=== PATIENT | female | born 1945 | race African-American/Black ===

== ENCOUNTER 2017-02-22 09:36 | Emergency (ER) | payer MEDICARE, OTHER ==
[~2017-02-22] VITALS: Ht 170.2 cm; Wt 90.7 kg
[2017-02-22 10:30] VITALS: BP 136/118
[2017-02-22 12:30] VITALS: BP 131/89
[2017-02-22 13:34] LABS: BASOPHILS % (AUTO) 0.7 % (0.0-2.0); EOSINOPHILS % (AUTO) 1.5 % (0.0-3.0); LYMPHOCYTES % (AUTO) 22.3 % (20.0-45.0); MEAN CORPUSCULAR VOLUME 93 FL (80-99); MEAN PLATELET VOLUME 5.4 FL (6.5-10.1); MONOCYTES % (AUTO) 6.5 % (1.0-10.0); NEUTROPHILS % (AUTO) 69.1 % (45.0-75.0); PLATELET COUNT 363 K/UL (150-450); RED BLOOD COUNT 4.31 M/UL (4.20-5.40); RED CELL DISTRIBUTION WIDTH 16.8 % (11.6-14.8); WHITE BLOOD COUNT 9.2 K/UL (4.8-10.8)
[2017-02-22 13:48] LABS: ALANINE AMINOTRANSFERASE 5 U/L (3-33); ANION GAP 13 (5-15); ASPARTATE AMINO TRANSFERASE 15 U/L (5-40); CALCIUM 9.2 mg/dL (8.6-10.2); CARBON DIOXIDE 32 mEQ/L (20-30); CHLORIDE 97 mEQ/L (98-107); HEMOLYSIS 4; POTASSIUM 3.5 mEQ/L (3.4-4.9); SODIUM 142 mEQ/L (135-145); TOTAL PROTEIN 7.2 g/dL (6.6-8.7)
[2017-02-22 13:49] LABS: PROTHROMBIN TIME 10.1 SEC (9.30-11.50)
--- NOTE | 2017-02-22 14:24 | Emergency Room Report ---
History of Present Illness General Chief Complaint: Pain Source: Patient, Medical Record Present Illness HPI This patient states that 3 days ago she developed pain in her left foot. She states that she has a history of diabetic neuropathy that this is been different. She states that the pain has gotten worse and she is unable to ambulate secondary to pain. She states that the foot also feels very cold. She denies injury. She denies fever chills. She denies nausea or vomiting. She has no other complaints. Allergies: Coded Allergies: CHLORDIAZEPOXIDE (Verified Allergy, Mild, 01/05/10) DIAZEPAM (Verified Allergy, Mild, 01/05/10) HYDROCHLOROTHIAZIDE (Verified Allergy, Mild, 01/05/10) PENICILLIN G (Verified Allergy, Mild, HIVES, 01/05/10) HYDROMORPHONE (Unverified Allergy, Unknown, 02/22/17) MORPHINE (Unverified Allergy, Unknown, 02/22/17) PENICILLINS (Unverified Allergy, Unknown, 02/22/17) Uncoded Allergies: HYDROCHLOROTHIAZIDE (Allergy, Unknown, 02/22/17) Patient History Past Medical History: see triage record, HTN, GA, CAD, CHF, AFib, renal disease Social History: Denies: alcohol use, drug use, smoking Reviewed Nursing Documentation: PMH: Agreed, PSxH: Agreed Nursing Documentation-PMH Past Medical History: No History, Except For Hx Cardiac Problems: Yes - afib, aflutter CHF chronic kidney disease Hx Hypertension: Yes Hx Pacemaker: Yes Review of Systems All Other Systems: negative except mentioned in HPI Physical Exam Vital Signs Date Time Temp Pulse Resp B/P Pulse Ox O2 Delivery O2 Flow Rate FiO2 02/22/17 09:26 97.5 88 18 150/100 97 Room Air Sp02 EP Interpretation: reviewed, normal General Appearance: no apparent distress, alert, GCS 15, non-toxic Head: normocephalic, atraumatic Eyes: bilateral eye PERRL, bilateral eye normal inspection ENT: hearing grossly normal, normal pharynx, no angioedema, normal voice Neck: full range of motion, supple/symm/no masses Respiratory: chest non-tender, lungs clear, normal breath sounds, speaking full sentences Cardiovascular #1: regular rate, rhythm, no edema Cardiovascular #2: 2+ femoral (R), 2+ femoral (L), 2+ dorsalis pedis (R), 0 dorsalis pedis (L) Gastrointestinal: normal bowel sounds, non tender, soft, non-distended, no guarding, no rebound Rectal: deferred Musculoskeletal: back normal, normal range of motion, other - 0/4 DP and PT pulse on the LLE. TTP Throughout L. calf and foot. Neurologic: alert, oriented x3, responsive, motor strength/tone normal, sensory intact, speech normal Psychiatric: judgement/insight normal, memory normal, mood/affect normal, no suicidal/homicidal ideation Skin: normal color, no rash, warm/dry, well hydrated Medical Decision Making Diagnostic Impression: Primary Impression: Femoral artery occlusion, left ER Course This patient has an occlusion of the distal femoral artery. This is all the way through the distal popliteal to the tibial arteries. There is no color Doppler flow detected in the distal superficial femoral, popliteal posterior, anterior and dorsalis pedis tibial arteries. I discussed the case with the on- call vascular surgeon who is unsure if he would be able to see this patient today. Therefore, this patient needed to be transferred to higher level of care. The patient is transferred for evaluation by a vascular surgeon. Labs Test 02/22/17 13:21 White Blood Count 9.2 K/UL (4.8-10.8) Red Blood Count 4.31 M/UL (4.20-5.40) Hemoglobin 12.5 G/DL (12.0-16.0) Hematocrit 40.2 % (37.0-47.0) Mean Corpuscular Volume 93 FL (80-99) Mean Corpuscular Hemoglobin 29.0 PG (27.0-31.0) Mean Corpuscular Hemoglobin Concent 31.0 G/DL (32.0-36.0) Red Cell Distribution Width 16.8 % (11.6-14.8) Platelet Count 363 K/UL (150-450) Mean Platelet Volume 5.4 FL (6.5-10.1) Neutrophils (%) (Auto) 69.1 % (45.0-75.0) Lymphocytes (%) (Auto) 22.3 % (20.0-45.0) Monocytes (%) (Auto) 6.5 % (1.0-10.0) Eosinophils (%) (Auto) 1.5 % (0.0-3.0) Basophils (%) (Auto) 0.7 % (0.0-2.0) Prothrombin Time 10.1 SEC (9.30-11.50) Prothromb Time International Ratio 1.0 (0.9-1.1) Activated Partial Thromboplast Time 27 SEC (23-33) Sodium Level 142 mEQ/L (135-145) Potassium Level 3.5 mEQ/L (3.4-4.9) Chloride Level 97 mEQ/L (98-107) Carbon Dioxide Level 32 mEQ/L (20-30) Anion Gap 13 (5-15) Blood Urea Nitrogen 13 mg/dL (7-23) Creatinine 1.0 mg/dL (0.5-0.9) Estimat Glomerular Filtration Rate mL/min (>60) Glucose Level 113 mg/dL (74-106) Calcium Level 9.2 mg/dL (8.6-10.2) Total Bilirubin 0.5 mg/dL (0.0-1.2) Aspartate Amino Transf (AST/SGOT) 15 U/L (5-40) Alanine Aminotransferase (ALT/SGPT) 5 U/L (3-33) Alkaline Phosphatase 92 U/L (35-104) Total Creatine Kinase 263 U/L (26-140) Total Protein 7.2 g/dL (6.6-8.7) Albumin 3.7 g/dL (3.5-5.2) Globulin 3.5 g/dL Albumin/Globulin Ratio 1.0 (1.0-2.7) EKG Diagnostic Results Rate: normal Rhythm: other ST Segments: no acute changes Other Impression Paced Rhythm Strip Diag. Results EP Interpretation: yes Rate: 86 Rhythm: no PVC's, no ectopy Other Impression Paced Chest X-Ray Diagnostic Results Chest X-Ray Ordered: No CT/MRI/US Diagnostic Results CT/MRI/US Diagnostic Results : Imaging Test Ordered: Arterial and venous US LLE: Impression Common femoral artery waveform analysis is within normal limits the rest. Color flow duplex sonography revealed an occlusion of the distal femoral artery. Reconstitution is noted at the mid-popliteal artery. There is another occlusion of the distal popliteal artery to the tibial arteries. No color Doppler flow was detected in the distal superficial femoral, popliteal, posterior, anterior, and dorsalis pedis tibial arteries. Findings compatible with occlusion. Left lower extremity venous ultrasound. It is imaging reveals recannulize chronic thrombus in the superficial femoral vein. Large scleral of a noted anterior to the superficial femoral artery. The remainder of the deep venous system is within normal limits. There is no evidence of thrombus in the common femoral, popliteal and calf veins. Last Vital Signs Date Time Temp Pulse Resp B/P Pulse Ox O2 Delivery O2 Flow Rate FiO2 02/22/17 09:26 97.5 88 18 150/100 97 Room Air Disposition: XFER SHT-TRM HOSP Condition: Serious Referrals: NOT CHOSEN IPA/,REFERRING (PCP) MAUDE DE LA TORRE D.O. Feb 22, 2017 14:24
[2017-02-22 14:59] VITALS: BP 162/99
[2017-02-22] MEDS ORDERED: Heparin 25,000u/D5W 500ml 500 ML IV SCH (15:30)
[2017-02-22] MEDS ORDERED: fentaNYL 100 mcg/2 mL IV ONE ×2 (16:45→17:15)
[2017-02-22] MEDS ORDERED: Heparin Sod 1000 units/ml 10ml INJ ONE (17:15)
--- NOTE | 2017-02-22 17:20 | Diagnostic Imaging Report ---
Indication: Critical acute left lower limb ischemia Technique: Administration nonionic contrast arterial phase spiral acquisitions obtained through the abdomen, pelvis, and bilateral lower extremities Multiplanar reconstructions were generated. Total dose length product 2109 mGycm. CTDIvol(s) 8, 137, 11, 5 mGy. Radiation dose was minimized using automated exposure control Comparison: Noncontrast CT abdomen pelvis 11/21/2010 Findings: Abdominal aorta: There is calcified atherosclerotic plaquing of the abdominal aorta, without significant focal stenosis. Patent and nonstenotic celiac axis and proximal branches, superior mesenteric artery and proximal branches, inferior mesenteric artery. There are single bilateral renal arteries which are nonstenotic. Right lower extremity: Widely patent nonstenotic common iliac, proximal internal iliac, external iliac arteries. Widely patent nonstenotic common and profunda femoral arteries. The superficial femoral artery is not well demonstrated, in part due to streak artifact from a right femoral prosthesis, and in part due to slow flow resulting in delayed filling. Therefore, significant stenosis at or beyond the abductor hiatus cannot be confidently ruled out. However, below the abductor hiatus, the popliteal artery is patent, without significant stenosis. There is calcified plaquing of the proximal trifurcation vessels, which are patent proximally. However, slow flow results in poor opacification of the distal trifurcation vessels on the right, so patency of the trifurcation vessels cannot be verified beyond the mid calf. Left lower extremity: Widely patent common iliac, external iliac, proximal internal iliac artery. Widely patent nonstenotic common femoral and profunda femoris arteries. Widely patent and nonstenotic proximal superficial femoral artery. The mid superficial femoral artery is not optimally demonstrated, due to slow contrast flow/suboptimal timing resulting in poor opacification. There is occlusion of the superficial femoral artery just above the abductor hiatus. There is distal reconstitution of the popliteal artery just below the abductor hiatus. The popliteal artery is then patent to the knee joint, where it reoccludes. Is an occluded for the remainder of its length. There is reconstitution of the anterior tibial artery just beyond its origin. This appears to be patent ovaries length, without definite significant stenosis, and is seen to the level of the ankle, where it appears to form a sizable dorsalis pedis artery. There is occlusion of the tibioperoneal trunk, but reconstitution of the peroneal artery at its origin. This appears to be a diseased vessel, and is only seen to the level of the mid leg.. Uncertain as to whether lack of distal visualization is due to poor opacification from sluggish flow or distal occlusion. The posterior tibial artery reconstitutes a few centimeters beyond its origin. It appears to be widely patent to the level of the ankle joint. It is not well seen distal to the ankle joint. Uncertain as to whether this is due to poor opacification due to suboptimal findings/low flow or due to distal occlusion, although suspect the former. Nonvascular: The visualized portions of the liver, pancreas, adrenals, and kidneys are unremarkable. Note that the upper extent of the imaging volume is the celiac origin, so significant portions of the abdominal viscera are not included. The uterus is not demonstrated, presumed surgically absent. No pelvic mass or adenopathy. No retroperitoneal or mesenteric mass or adenopathy. The appendix is not definitely identified, but no findings to suggest acute appendicitis are evident. There is fairly extensive colonic diverticulosis. No evidence of diverticulitis. No small bowel distention. No free or loculated intraperitoneal air or fluid. There is a right hip prosthesis. There are degenerative changes of the lumbar spine. There are degenerative regla -- nges of the patellofemoral compartments of both knees. There is considerable edema of the subcutaneous fat of the lumbar region. This is also demonstrated previously Impression: Somewhat limited exam, due to suboptimal contrast opacification of the bilateral lower from the arterial structures, probably due to suboptimal timing related to sluggish arterial flow. No evidence of significant suprainguinal stenosis on either side Occlusion of the distal left superficial femoral artery, at or just above the abductor hiatus. Segmental reconstitution of the proximal popliteal artery, extending from just distal to the abductor hiatus to the knee joint. Reocclusion at the level of the knee joint, occlusion extending from the knee joint to the trifurcation and into the tibia peroneal trunk. Reconstitution of the anterior tibial artery just beyond its origin. This is probably a nonstenotic vessel and appears to form a patent dorsalis pedis artery. Reconstitution of the posterior tibial artery a few centimeters beyond its origin. This appears to be a widely patent vessel. It is not well seen the on the ankle joint. Uncertain as whether this is due to occlusion or poor contrast opacification slow flow, suspect the latter. Reconstitution of the peroneal artery at its origin. Not well seen distally. Uncertain as whether this is due to disease or suboptimal opacification from slow flow, suspect combination of both Suboptimal opacification on the right, particularly of the distal superficial femoral artery, proximal popliteal artery, and distal trifurcation vessels. No definite significant stenotic or occlusive disease demonstrated to the level of the midcalf, beyond which patency of the trifurcation vessels cannot be determined Diverticulosis. No evidence of diverticulitis Right hip prosthesis Evidence of prior hysterectomy Degenerative lumbar spondylosis Findings discussed by phone with ordering surgeon previously The CT scanner at [facility] is accredited by the [employer] and the scans are performed using protocols designed to limit radiation exposure to as low as reasonably achievable to attain images of sufficient resolution adequate for diagnostic evaluation.
[2017-02-22] MEDS ORDERED: Heparin 5000 units/ml inj INJ ONE (17:45)
[2017-02-22 19:15] VITALS: BP 167/95
[2017-02-22 20:15] VITALS: BP 153/89
== END 2017-02-22 20:15 | disposition short-term general hospital (02) ==
LOC: EDBD 09:36 → EMR 11:26
DX: I77.1 Stricture of artery (principal); E11.40 Type 2 diabetes mellitus with diabetic neuropathy, unspecified; I48.91 Unspecified atrial fibrillation; I48.92 Unspecified atrial flutter; I50.9 Heart failure, unspecified; I12.9 Hypertensive chronic kidney disease with stage 1 through stage 4 chronic kidney disease, or unspecified chronic kidney disease; N18.9 Chronic kidney disease, unspecified; Z95.0 Presence of cardiac pacemaker
CPT/HCPCS: 36415; 75635; 80053; 82550; 85025; 85610; 85730; 93005; 93926; 93971; 96374; 96375; 99285; J1644; J2405; J3010; Q9967

== ENCOUNTER 2018-09-05 00:03 | Inpatient (IN) | payer MEDICARE, MEDICAID ==
[~2018-09-05] VITALS: Ht 165.1 cm; Wt 114.8 kg
[~2018-09-05 00:03] MED LIST: BENAZEPRIL HCL40 MG ORAL; BISACODYL5 MG ORAL; CATAPRES-TTS-21 EA TDERMAL; CLOTRIMAZOLE30 GM TP; DIAZEPAM10 MG VAGIN; HYDRALAZINE HCL25 M1 ORAL; HYDRALAZINE HCL50 MG ORAL; LEVOTHYROXINE100 MCG ORAL; MAGNESIUM OXID250 MG PO; METHADONE HCL5 MG PO; PERCOCET 10-321 EACH ORAL; PRILOSEC40 MG ORAL; SENNA8.6 M3 PO; VERAPAMIL ER240 MG ORAL
[2018-09-05 00:05] VITALS: BP 158/96
--- NOTE | 2018-09-05 00:05 | NUR ---
ED Nurse Note: Pt arrived ER with EMS. EMS report Pt from SNF and had low HR, gen weakness. Pt is AOP x 1time, non verbal, on @L N/C. O2 Sat 98%. MARY ANNED seen Pt at bedside.
[2018-09-05] MEDS ORDERED: FLEET ENEMA133 M1 RC (00:45)
[2018-09-05] MEDS ORDERED: TYLENOL EXTRA500 MG GT (00:45)
[2018-09-05] MEDS ORDERED: KEPPRA750 MG GT (00:45)
[2018-09-05] MEDS ORDERED: CRANBERRY450 M3 PO (00:45)
[2018-09-05] MEDS ORDERED: MOM30 ML GT (00:45)
[2018-09-05] MEDS ORDERED: SYNTHROID25 MCG GT (00:45)
[2018-09-05] MEDS ORDERED: LACTULOSE10 GM/153 GT (00:45)
[2018-09-05] MEDS ORDERED: MULTIVITAMINS1 EA13 GT (00:45)
[2018-09-05] MEDS ORDERED: PRO-STAT LIQUID30 ML GT (00:45)
[2018-09-05] MEDS ORDERED: COLACE100 MG GT (00:45)
[2018-09-05] MEDS ORDERED: FEOSOL1 TAB GT (00:45)
[2018-09-05] MEDS ORDERED: DIGOXIN0.125 MG/2 GT (00:45)
[2018-09-05] MEDS ORDERED: BISACODYL10 M1 RC (00:45)
[2018-09-05] MEDS ORDERED: TRAMADOL HCL100 M2 GT (00:45)
[2018-09-05] MEDS ORDERED: ATORVASTATIN CA40 MG GT (00:45)
[2018-09-05] MEDS ORDERED: ELIQUIS5 MG GT (00:45)
[2018-09-05] MEDS ORDERED: PROTEINEX LIQU236 ML GT (00:45)
--- NOTE | 2018-09-05 00:45 | Emergency Room Report ---
History of Present Illness General Chief Complaint: Generalized Weakness Source: Medical Record, EMS Present Illness HPI Patient presents from nursing facility with reports of being'sick' This is what the paramedics reported Patient herself appears to have had a previous large CVA Is nonverbal While in the [facility] patient has increased cough History of present illness is significantly limited Unclear regarding any vomiting or diarrhea There was a report that the patient had been just recently transferred to the nursing facility from another hospitalization Allergies: Coded Allergies: CHLORDIAZEPOXIDE (Verified Allergy, Mild, 01/05/10) DIAZEPAM (Verified Allergy, Mild, 01/05/10) HYDROCHLOROTHIAZIDE (Verified Allergy, Mild, 01/05/10) PENICILLIN G (Verified Allergy, Mild, HIVES, 01/05/10) HYDROMORPHONE (Unverified Allergy, Unknown, 02/22/17) MORPHINE (Unverified Allergy, Unknown, 02/22/17) PENICILLINS (Unverified Allergy, Unknown, 02/22/17) Uncoded Allergies: HYDROCHLOROTHIAZIDE (Allergy, Unknown, 02/22/17) Patient History Limited by: medical condition Past Medical History: see triage record Pertinent Family History: unable to obtain Reviewed Nursing Documentation: PMH: Agreed; PSxH: Agreed Nursing Documentation-PMH Hx Cardiac Problems: Yes - CHF, paroxysmal a-fib, hypothyroidism, chronic iron deficiency anemia Hx Hypertension: Yes Hx Pacemaker: Yes History Of Psychiatric Problem: Yes - Depression degenerative disease of basal ganglia Hx Neurological Problems: Yes - Muscle weakness, ankle contracture, quadriplegia, metabolic encephalopathy, Hx Cerebrovascular Accident: Yes Hx Seizures: Yes Review of Systems All Other Systems: limited - Other than the ones mentioned in the history of present illness all others are reviewed however they do stay limited due to the patient's mental status Physical Exam Vital Signs Date Time Temp Pulse Resp B/P (MAP) Pulse Ox O2 Delivery O2 Flow Rate FiO2 09/05/18 00:05 97.9 65 16 140/96 99 Room Air Sp02 EP Interpretation: reviewed, normal General Appearance: mild distress Head: atraumatic Eyes: bilateral eye PERRL ENT: dry mucus membranes Neck: supple Respiratory: crackles, other - Mildly tachypneic Cardiovascular #1: irregularly irregular Gastrointestinal: non tender, soft Musculoskeletal: other - Patient chronically debilitated, left hand is extended , does not follow commands Neurologic: responsive - To physical stimuli Skin: pallor Lymphatic: no adenopathy Procedures Critical Care Time Critical Care Time 50 minutes for initial critical presentation, tachycardic, respiratory distress , multiple re-evaluations concern for cardiopulmonary arrest not including any procedural time Medical Decision Making Diagnostic Impression: Primary Impression: Sepsis Additional Impressions: Atrial fibrillation with RVR UTI (urinary tract infection) ER Course Patient is a fairly complex patient with multiple differential to consideration including but not limited to cardiac cardiopulmonary and vascular emergencies Patient required IV hydration and antibiotics Sepsis reexamination Time: Reevaluation VS refer to nursing note cvs: RRR respiratory: improved respiration peripheral pulses: 2+radial cap refill:<2 seconds skin exam: warm, dry, not mottled Patient continues to be in critical condition and admitted for further care Labs Test 09/05/18 01:00 09/05/18 01:20 09/05/18 03:00 White Blood Count 15.1 K/UL (4.8-10.8) Red Blood Count 5.40 M/UL (4.20-5.40) Hemoglobin 16.4 G/DL (12.0-16.0) Hematocrit 51.4 % (37.0-47.0) Mean Corpuscular Volume 95 FL (80-99) Mean Corpuscular Hemoglobin 30.4 PG (27.0-31.0) Mean Corpuscular Hemoglobin Concent 31.9 G/DL (32.0-36.0) Red Cell Distribution Width 14.4 % (11.6-14.8) Platelet Count 292 K/UL (150-450) Mean Platelet Volume 6.0 FL (6.5-10.1) Neutrophils (%) (Auto) % (45.0-75.0) Lymphocytes (%) (Auto) % (20.0-45.0) Monocytes (%) (Auto) % (1.0-10.0) Eosinophils (%) (Auto) % (0.0-3.0) Basophils (%) (Auto) % (0.0-2.0) Sodium Level 140 MMOL/L (136-145) Potassium Level 3.8 MMOL/L (3.5-5.1) Chloride Level 99 MMOL/L (98-107) Carbon Dioxide Level 31 MMOL/L (21-32) Anion Gap 10 mmol/L (5-15) Blood Urea Nitrogen 18 mg/dL (7-18) Creatinine 0.8 MG/DL (0.55-1.30) Estimat Glomerular Filtration Rate mL/min (>60) Glucose Level 138 MG/DL (74-106) Lactic Acid Level 3.50 mmol/L (0.4-2.0) 1.90 mmol/L (0.66-2.22) Calcium Level 9.7 MG/DL (8.5-10.1) Total Bilirubin 0.9 MG/DL (0.2-1.0) Aspartate Amino Transf (AST/SGOT) 24 U/L (15-37) Alanine Aminotransferase (ALT/SGPT) 19 U/L (12-78) Alkaline Phosphatase 102 U/L (46-116) Total Creatine Kinase 82 U/L (26-308) Creatine Kinase MB 1.5 NG/ML (0.0-3.6) Creatine Kinase MB Relative Index 1.8 Troponin I 0.033 ng/mL (0.000-0.056) Pro-B-Type Natriuretic Peptide 640 pg/mL (0-125) Total Protein 9.1 G/DL (6.4-8.2) Albumin 3.4 G/DL (3.4-5.0) Globulin 5.7 g/dL Albumin/Globulin Ratio 0.6 (1.0-2.7) Lipase 187 U/L (73-393) Urine Color Yellow Urine Appearance Cloudy Urine pH 7 (4.5-8.0) Urine Specific [place] 1.010 (1.005-1.035) Urine Protein 3+ (NEGATIVE) Urine Glucose (UA) Negative (NEGATIVE) Urine Ketones Negative (NEGATIVE) Urine Blood 3+ (NEGATIVE) Urine Nitrite Positive (NEGATIVE) Urine Bilirubin Negative (NEGATIVE) Urine Urobilinogen 1 MG/DL (0.0-1.0) Urine Leukocyte Esterase 3+ (NEGATIVE) Urine RBC 10-15 /HPF (0 - 2) Urine WBC 60-80 /HPF (0 - 2) Urine Squamous Epithelial Cells Moderate /LPF (NONE/OCC) Urine Bacteria Many /HPF (NONE) EKG Diagnostic Results Rate: tachycardiac Rhythm: other - afib ST Segments: other - Nonspecific ST changes Rhythm Strip Diag. Results EP Interpretation: yes Rate: 80 Rhythm: no PVC's, no ectopy, other - Atrial fibrillation Chest X-Ray Diagnostic Results Chest X-Ray Diagnostic Results : Chest X-Ray Ordered: Yes # of Views/Limited/Complete: 1 View Indication: Chest Pain EP Interpretation: Yes Interpretation: no effusion, no pneumothorax, other - Right-sided marking concerning for infiltrated Impression: Other - Right-sided marking possible pneumonia Electronically Signed by: Sincere Pacheco DO Last Vital Signs Date Time Temp Pulse Resp B/P (MAP) Pulse Ox O2 Delivery O2 Flow Rate FiO2 09/05/18 00:05 97.9 65 16 140/96 99 Room Air Status: improved Disposition: ADMITTED INPATIENT Condition: Serious Sincere Pacheco DO Sep 05, 2018 00:45
[2018-09-05] MEDS ORDERED: VITAMIN C500 MG/11 GT (00:48)
[2018-09-05] MEDS ORDERED: ACETAMINOPHEN325 M1 GT (00:48)
[2018-09-05] MEDS ORDERED: ACETAMINOPHEN325 M1 ORAL (00:48)
[2018-09-05] MEDS ORDERED: NORVASC2.5 MG GT (00:50)
[2018-09-05 01:12] LABS: HEMATOCRIT 51.4 % (37.0-47.0); HEMOGLOBIN 16.4 G/DL (12.0-16.0); MEAN CORPUSCULAR VOLUME 95 FL (80-99); PLATELET COUNT 292 K/UL (150-450); RED CELL DISTRIBUTION WIDTH 14.4 % (11.6-14.8); WHITE BLOOD COUNT 15.1 K/UL (4.8-10.8)
[2018-09-05 01:23] LABS: ANION GAP 10 mmol/L (5-15); BLOOD UREA NITROGEN 18 mg/dL (7-18); CALCIUM 9.7 MG/DL (8.5-10.1); CARBON DIOXIDE 31 MMOL/L (21-32); CHLORIDE 99 MMOL/L (98-107); CREATININE 0.8 MG/DL (0.55-1.30); POTASSIUM 3.8 MMOL/L (3.5-5.1); SODIUM 140 MMOL/L (136-145)
[2018-09-05 01:28] LABS: APPEARANCE,URINE CLOUDY; BILIRUBIN, URINE NEGATIVE (NEGATIVE); GLUCOSE, URINE (UA) NEGATIVE (NEGATIVE); KETONES,URINE NEGATIVE (NEGATIVE); LEUKOCYTE ESTERASE ,URINE 3+ (NEGATIVE); NITRITE,URINE POSITIVE (NEGATIVE); PH,URINE 7 (4.5-8.0); PROTEIN,URINE 3+ (NEGATIVE); UROBILINOGEN,URINE 1 MG/DL (0.0-1.0)
[2018-09-05 01:38] LABS: ALANINE AMINOTRANSFERASE 19 U/L (12-78); ALBUMIN 3.4 G/DL (3.4-5.0); ALBUMIN/GLOBULIN RATIO 0.6 (1.0-2.7); ALKALINE PHOSPHATASE 102 U/L (46-116); ASPARTATE AMINO TRANSFERASE 24 U/L (15-37); BILIRUBIN,TOTAL 0.9 MG/DL (0.2-1.0); CKMB 1.5 NG/ML (0.0-3.6); CREATINE KINASE 82 U/L (26-308)
[2018-09-05 01:39] LABS: COLOR,URINE YELLOW
[2018-09-05] MEDS ORDERED: Clindamycin 600mg 50 ML IVPB ONE (02:00)
[2018-09-05] MEDS ORDERED: NS 275 ML IVPB SCH (02:02)
--- NOTE | 2018-09-05 03:00 | NUR ---
ED Nurse Note: Lactic acid sample sent to Lab.
[2018-09-05 03:40] VITALS: BP 135/50
--- NOTE | 2018-09-05 03:50 | NUR ---
ED Nurse Note: Admit Pt to Tele Room 202-1. Pt is AO x 1time, HR is 116, RR 32~34, report to floor RN. Pt has no Belonging, skin issue report to floor RN. Report given to KYLE Herrera.
--- NOTE | 2018-09-05 04:15 | NUR ---
NURSE NOTES: Got report from [place] WRIGHT. Initial assessment done. Picture taken of Stage 2 pressure ulcer on R hip area. No s/s of distress noted. Pt nonverbal. Seizure precautions in place. Pt on 2L O2 and pt has gtube. No belongings of pt noted. Pt lying in bed comfortably. CTM.
--- NOTE | 2018-09-05 04:45 | NUR ---
NURSE NOTES: Notified on new pt on unit. Awaiting for admission orders. Continue to monitor.
--- NOTE | 2018-09-05 07:28 | NUR ---
HAND-OFF: Report given to KYLE Gibson. Still awaiting for admission orders. Vitals stable.
--- NOTE | 2018-09-05 07:52 | NUR ---
INTERQUAL CRITERIA MET
--- NOTE | 2018-09-05 07:58 | NUR ---
NURSE NOTES: Received patient lying down on bed semi edmonds position on stable condition with no SOB or distress noted. A/O X0 non verbal, IV intact patent. Keep patient clean and comfortable in bed, call light within patient reach, will continue to monitor accordingly.
[2018-09-05 08:00] VITALS: BP 129/98
[2018-09-05 12:00] VITALS: BP 113/78
[2018-09-05] MEDS ORDERED: Acetaminophen 650mg/20.3ml GT PRN (12:15)
--- NOTE | 2018-09-05 12:15 | Diagnostic Imaging Report ---
Indication: Chest pain Technique: One view of the chest Comparison: For 05/11/2009 Findings: There is a patchy infiltrate at the right lung base, not evident previously. The left hemidiaphragm is elevated. The pleural spaces are clear. Is a left chest pacemaker again demonstrated Impression: Patchy right basilar infiltrate, likely pneumonia
--- NOTE | 2018-09-05 12:57 | Cardiac Electrophysiology PN ---
Subjective Subjective EP consult dictated [id number] Objective Last 24 Hour Vital Signs Date Time Temp Pulse Resp B/P (MAP) Pulse Ox O2 Delivery O2 Flow Rate FiO2 09/05/18 09:00 Nasal Cannula 2.0 09/05/18 08:00 98.8 20 129/98 (108) 98 09/05/18 05:04 Nasal Cannula 2.0 09/05/18 05:03 107 09/05/18 03:50 98.4 116 32 135/50 98 Room Air 2.0 09/05/18 03:40 98.4 116 32 135/50 98 Room Air 09/05/18 01:40 89 16 Nasal Cannula 2.0 09/05/18 00:05 98.5 89 16 158/96 99 Room Air 09/05/18 00:05 97.9 65 16 140/96 99 Room Air Laboratory Tests Test 09/05/18 01:00 09/05/18 01:20 09/05/18 03:00 White Blood Count 15.1 K/UL (4.8-10.8) H Red Blood Count 5.40 M/UL (4.20-5.40) Hemoglobin 16.4 G/DL (12.0-16.0) H Hematocrit 51.4 % (37.0-47.0) H Mean Corpuscular Volume 95 FL (80-99) Mean Corpuscular Hemoglobin 30.4 PG (27.0-31.0) Mean Corpuscular Hemoglobin Concent 31.9 G/DL (32.0-36.0) L Red Cell Distribution Width 14.4 % (11.6-14.8) Platelet Count 292 K/UL (150-450) Mean Platelet Volume 6.0 FL (6.5-10.1) L Neutrophils (%) (Auto) % (45.0-75.0) Lymphocytes (%) (Auto) % (20.0-45.0) Monocytes (%) (Auto) % (1.0-10.0) Eosinophils (%) (Auto) % (0.0-3.0) Basophils (%) (Auto) % (0.0-2.0) Sodium Level 140 MMOL/L (136-145) Potassium Level 3.8 MMOL/L (3.5-5.1) Chloride Level 99 MMOL/L (98-107) Carbon Dioxide Level 31 MMOL/L (21-32) Anion Gap 10 mmol/L (5-15) Blood Urea Nitrogen 18 mg/dL (7-18) Creatinine 0.8 MG/DL (0.55-1.30) Estimat Glomerular Filtration Rate mL/min (>60) Glucose Level 138 MG/DL (74-106) H Lactic Acid Level 3.50 mmol/L (0.4-2.0) H 1.90 mmol/L (0.66-2.22) Calcium Level 9.7 MG/DL (8.5-10.1) Total Bilirubin 0.9 MG/DL (0.2-1.0) Aspartate Amino Transf (AST/SGOT) 24 U/L (15-37) Alanine Aminotransferase (ALT/SGPT) 19 U/L (12-78) Alkaline Phosphatase 102 U/L (46-116) Total Creatine Kinase 82 U/L (26-308) Creatine Kinase MB 1.5 NG/ML (0.0-3.6) Creatine Kinase MB Relative Index 1.8 Troponin I 0.033 ng/mL (0.000-0.056) Pro-B-Type Natriuretic Peptide 640 pg/mL (0-125) H Total Protein 9.1 G/DL (6.4-8.2) H Albumin 3.4 G/DL (3.4-5.0) Globulin 5.7 g/dL Albumin/Globulin Ratio 0.6 (1.0-2.7) L Lipase 187 U/L (73-393) Urine Color Yellow Urine Appearance Cloudy Urine pH 7 (4.5-8.0) Urine Specific [place] 1.010 (1.005-1.035) Urine Protein 3+ (NEGATIVE) H Urine Glucose (UA) Negative (NEGATIVE) Urine Ketones Negative (NEGATIVE) Urine Blood 3+ (NEGATIVE) H Urine Nitrite Positive (NEGATIVE) H Urine Bilirubin Negative (NEGATIVE) Urine Urobilinogen 1 MG/DL (0.0-1.0) H Urine Leukocyte Esterase 3+ (NEGATIVE) H Urine RBC 10-15 /HPF (0 - 2) H Urine WBC 60-80 /HPF (0 - 2) H Urine Squamous Epithelial Cells Moderate /LPF (NONE/OCC) H Urine Bacteria Many /HPF (NONE) H Microbiology Date/Time Source Procedure Growth Status 09/05/18 00:30 Nasal Nares Influenza Types A,B Antigen (LEXI) - Final Complete Elijah Wyatt MD Sep 05, 2018 12:57
[2018-09-05] MEDS: Digoxin 0.125mg tab GT SCH (13:15)
[2018-09-05] MEDS: HydrALAZINE 50mg tab ORAL SCH ×2 (13:16→22:22)
[2018-09-05] MEDS: Magnesium Oxide 400mg tab GT SCH (13:16)
--- NOTE | 2018-09-05 14:00 | History & Physical ---
History and Physical History & Physicial Admission History and Physical Pulmonary Note Chief Complaint: Generalized Weakness, coughing HPI Patient presents from nursing facility with reports of being'sick' This is what the paramedics reported Patient herself appears to have had a previous large CVA Is nonverbal Noted to have Pneumonia on CXR History of present illness is significantly limited There was a report that the patient had been just recently transferred to the nursing facility from another hospitalization Allergies: Coded Allergies: CHLORDIAZEPOXIDE (Verified Allergy, Mild, 01/05/10) DIAZEPAM (Verified Allergy, Mild, 01/05/10) HYDROCHLOROTHIAZIDE (Verified Allergy, Mild, 01/05/10) PENICILLIN G (Verified Allergy, Mild, HIVES, 01/05/10) HYDROMORPHONE (Unverified Allergy, Unknown, 02/22/17) MORPHINE (Unverified Allergy, Unknown, 02/22/17) PENICILLINS (Unverified Allergy, Unknown, 02/22/17) Uncoded Allergies: HYDROCHLOROTHIAZIDE (Allergy, Unknown, 02/22/17) Patient History Limited by: medical condition Past Medical History: see triage record Pertinent Family History: unable to obtain Reviewed Nursing Documentation: PMH: Agreed; PSxH: Agreed Nursing Documentation-PMH Hx Cardiac Problems: Yes - CHF, paroxysmal a-fib, hypothyroidism, chronic iron deficiency anemia Hx Hypertension: Yes Hx Pacemaker: Yes History Of Psychiatric Problem: Yes - Depression degenerative disease of basal ganglia Hx Neurological Problems: Yes - Muscle weakness, ankle contracture, quadriplegia, metabolic encephalopathy, Hx Cerebrovascular Accident: Yes Hx Seizures: Yes Review of Systems All Other Systems: limited - Other than the ones mentioned in the history of present illness all others are reviewed however they do stay limited due to the patient's mental status Physical Exam Vital Signs Noted Date Time Temp Pulse Resp B/P (MAP) Pulse Ox O2 Delivery O2 Flow Rate FiO2 09/05/18 00:05 97.9 65 16 140/96 99 Room Air Sp02 EP Interpretation: reviewed, normal General Appearance: mild distress Head: atraumatic Eyes: bilateral eye PERRL ENT: dry mucus membranes Neck: supple Respiratory: crackles, other - Mildly tachypneic Cardiovascular #1: irregularly irregular Gastrointestinal: non tender, soft Musculoskeletal: other - Patient chronically debilitated, left hand is extended , does not follow commands Neurologic: responsive - To physical stimuli Skin: pallor Lymphatic: no adenopathy Impression: Primary Impression: Pneumonia, Sepsis Atrial fibrillation with RVR UTI (urinary tract infection) CHF, paroxysmal a-fib Hypothyroidism Chronic iron deficiency anemia HTN PPM Previous CVA, basal ganglia disease Seizure History Hx Hypertension: Yes Hx Pacemaker: Yes History Of Psychiatric Problem: Yes - Depression degenerative disease of basal ganglia Hx Neurological Problems: Yes - Muscle weakness, ankle contracture, quadriplegia, metabolic encephalopathy, Hx Cerebrovascular Accident: Yes Hx Seizures: Yes ER Course Patient is a fairly complex patient with multiple differential to consideration including but not limited to cardiac cardiopulmonary and vascular emergencies Patient required IV hydration and antibiotics Sepsis reexamination Time: Reevaluation VS refer to nursing note cvs: RRR respiratory: improved respiration peripheral pulses: 2+radial cap refill:<2 seconds skin exam: warm, dry, not mottled Patient continues to be in critical condition and admitted for further care Labs Test 09/05/18 01:00 09/05/18 01:20 09/05/18 03:00 White Blood Count 15.1 K/UL (4.8-10.8) Red Blood Count 5.40 M/UL (4.20-5.40) Hemoglobin 16.4 G/DL (12.0-16.0) Hematocrit 51.4 % (37.0-47.0) Mean Corpuscular Volume 95 FL (80-99) Mean Corpuscular Hemoglobin 30.4 PG (27.0-31.0) Mean Corpuscular Hemoglobin Concent 31.9 G/DL (32.0-36.0) Red Cell Distribution Width 14.4 % (11.6-14.8) Platelet Count 292 K/UL (150-450) Mean Platelet Volume 6.0 FL (6.5-10.1) Neutrophils (%) (Auto) % (45.0-75.0) Lymphocytes (%) (Auto) % (20.0-45.0) Monocytes (%) (Auto) % (1.0-10.0) Eosinophils (%) (Auto) % (0.0-3.0) Basophils (%) (Auto) % (0.0-2.0) Sodium Level 140 MMOL/L (136-145) Potassium Level 3.8 MMOL/L (3.5-5.1) Chloride Level 99 MMOL/L (98-107) Carbon Dioxide Level 31 MMOL/L (21-32) Anion Gap 10 mmol/L (5-15) Blood Urea Nitrogen 18 mg/dL (7-18) Creatinine 0.8 MG/DL (0.55-1.30) Estimat Glomerular Filtration Rate mL/min (>60) Glucose Level 138 MG/DL (74-106) Lactic Acid Level 3.50 mmol/L (0.4-2.0) 1.90 mmol/L (0.66-2.22) Calcium Level 9.7 MG/DL (8.5-10.1) Total Bilirubin 0.9 MG/DL (0.2-1.0) Aspartate Amino Transf (AST/SGOT) 24 U/L (15-37) Alanine Aminotransferase (ALT/SGPT) 19 U/L (12-78) Alkaline Phosphatase 102 U/L (46-116) Total Creatine Kinase 82 U/L (26-308) Creatine Kinase MB 1.5 NG/ML (0.0-3.6) Creatine Kinase MB Relative Index 1.8 Troponin I 0.033 ng/mL (0.000-0.056) Pro-B-Type Natriuretic Peptide 640 pg/mL (0-125) Total Protein 9.1 G/DL (6.4-8.2) Albumin 3.4 G/DL (3.4-5.0) Globulin 5.7 g/dL Albumin/Globulin Ratio 0.6 (1.0-2.7) Lipase 187 U/L (73-393) Urine Color Yellow Urine Appearance Cloudy Urine pH 7 (4.5-8.0) Urine Specific [place] 1.010 (1.005-1.035) Urine Protein 3+ (NEGATIVE) Urine Glucose (UA) Negative (NEGATIVE) Urine Ketones Negative (NEGATIVE) Urine Blood 3+ (NEGATIVE) Urine Nitrite Positive (NEGATIVE) Urine Bilirubin Negative (NEGATIVE) Urine Urobilinogen 1 MG/DL (0.0-1.0) Urine Leukocyte Esterase 3+ (NEGATIVE) Urine RBC 10-15 /HPF (0 - 2) Urine WBC 60-80 /HPF (0 - 2) Urine Squamous Epithelial Cells Moderate /LPF (NONE/OCC) Urine Bacteria Many /HPF (NONE) EKG Diagnostic Results Rate: tachycardiac Rhythm: other - afib ST Segments: other - Nonspecific ST changes Rhythm Strip Diag. Results EP Interpretation: yes Rate: 80 Rhythm: no PVC's, no ectopy, other - Atrial fibrillation Chest X-Ray Diagnostic Results Chest X-Ray Diagnostic Results : Chest X-Ray Ordered: Yes # of Views/Limited/Complete: 1 View Indication: Chest Pain EP Interpretation: Yes Interpretation: no effusion, no pneumothorax, other - Right-sided marking concerning for infiltrated Impression: Other - Right-sided marking possible pneumonia Electronically Signed by: Sincere Pacheco DO Last Vital Signs Date Time Temp Pulse Resp B/P (MAP) Pulse Ox O2 Delivery O2 Flow Rate FiO2 09/05/18 00:05 97.9 65 16 140/96 99 Room Air Marques Lau MD Sep 05, 2018 14:00
--- NOTE | 2018-09-05 14:02 | NUR ---
RD ASSESSMENT & RECOMMENDATIONS SEE CARE ACTIVITY FOR COMPLETE ASSESSMENT DAILY ESTIMATED NEEDS: Needs based on Wound/ 75.6kg abw 24-30 kcals/kg 9819-9514 total kcals 1.25-1.7 g protein/kg 95-129 g total protein 25-30 mL/kg 5415-0028 total fluid mLs NUTRITION DIAGNOSIS: * Swallowing difficulty R/T dysphagia, h/o CVA as evidenced by pt is PEG dep. * Increased kcal/prot needs R/T wound healing as evidenced by admitted w/ lt hip stage 2 wound. CURRENT TF:Glucerna 1.2 @ 55ml/hr x 22 hrs ENTERAL NUTRITION RECOMMENDATIONS: Glucerna 1.5 @ 55ml/hr x 22 hrs (hold 1 hr before & after Synthroid med) to provide 1210ml, 1815kcal, 100g prot, 974ml free water * Rec TF change to Glucerna 1.5 for increased kcal/prot needs * Initiate Glucerna 1.5 @ 25ml/hr x 6 hrs, advance 10ml q 4-6 hrs as tolerated to goal rate * Hold 1 hour before and after Synthroid med * HOB over 30 degrees/ water flush per MD ADDITIONAL RECOMMENDATIONS: * Calibrated bedscale wt for accurate CBW * WOUND EVALUATION FOR LT HIP WOUND * Wound care: add Ozzy 1pkt BID * Monitor lytes, replete as needed * Consider accucheck w/ SSI- h/o DM, PEG dep
--- NOTE | 2018-09-05 15:36 | History & Physical ---
History and Physical History & Physicial Joshua Ramsey MD Sep 05, 2018 15:36
[2018-09-05] MEDS ORDERED: Cefepime HCl 1 GM in D5W 55 ML IVPB SCH (15:45)
[2018-09-05 16:00] VITALS: BP 140/97
--- NOTE | 2018-09-05 16:20 | NUR ---
CASE MANAGEMENT:REVIEW FROM [facility] SI: SEPSIS. DEHYDRATION. AFIB. UTI 97.9 65 16 140/96 99% ON RA WBC+15.1 IS: IV CLINDAMYCIN 1L NS BOLUS URINE CULTURE BLOOD CX : TO TELEMETRY
[2018-09-05] MEDS: Vancomycin 750mg/NS 250ml IVPB SCH (17:18)
[2018-09-05] MEDS: Eliquis 2.5mg tablet GT SCH (17:18)
[2018-09-05] MEDS ORDERED: Eliquis 2.5mg tablet ORAL SCH (18:00)
--- NOTE | 2018-09-05 18:30 | Consultation ---
DATE OF CONSULTATION: 09/05/2018 CARDIOLOGY CONSULTATION: CONSULTING PHYSICIAN: Elijah Wyatt M.D. REFERRING PHYSICIAN: Joshua Ramsey M.D. REASON FOR CONSULTATION: Management of pacemaker, atrial fibrillation with rapid ventricular response. HISTORY OF PRESENT ILLNESS: The patient is a 72-year-old lady, [facility] resident, who is nonverbal with prior CVA and history of G-tube placement as well as atrial fibrillation and history of permanent pacemaker implantation with [employer] device in 2013, who was brought in from nursing facility for being sick. The patient is nonverbal due to large previous CVA. On telemetry, the patient had atrial fibrillation with rapid ventricular response, heart rate of 140s. Cardiac electrophysiology consultation was obtained for further evaluation and management. REVIEW OF SYSTEMS: Cannot be obtained as the patient is nonverbal. PAST MEDICAL HISTORY: As mentioned above. FAMILY HISTORY: Noncontributory. ALLERGIES: She is allergic to hydrochlorothiazide, diazepam, penicillin, and morphine. MEDICATIONS: Per reconciliation. PHYSICAL EXAMINATION: VITAL SIGNS: Show blood pressure of 130/98, pulse is 110 to 120, respirations 18, and she is afebrile. HEAD AND NECK: Showed no JVD. LUNGS: Coarse rhonchi. CARDIOVASCULAR: Regular S1 and S2 with no gallop. Pacemaker is in the left subclavian. ABDOMEN: Soft. Status post post G-tube. EXTREMITIES: 1+ pitting edema. LABORATORY AND DIAGNOSTIC DATA: White count of 15.5, hemoglobin 16.4, and hematocrit 51.4. Sodium 140, potassium 3.8, BUN of 18, creatinine 0.8, and glucose of 138. Troponin is negative. BNP 640. ASSESSMENT AND PLAN: 1. Atrial fibrillation with rapid ventricular response. Resume the patient's verapamil 240 mg b.i.d. and discontinue amlodipine. The patient is also on digoxin and is on Eliquis 5 mg b.i.d. for anticoagulation purposes. 2. Status post Medtronic pacemaker in 2013. The pacemaker may need to be interrogated. 3. Hypothyroidism, on Synthroid. 4. Dementia. 5. Dysphagia, status post G-tube. 6. Hyperlipidemia, on Lipitor. 7. Essential hypertension. Continue maximizing her antiarrhythmic therapy with verapamil as the patient has atrial fibrillation with rapid ventricular response. Thank you very much, Dr. Ramsey, for allowing me to participate in the care of this patient. Please do not hesitate to contact me for any questions regarding my evaluation. Elijah Wyatt M.D. DR: TONY JOB#: [id number] CC:
[2018-09-05] MEDS: Ipratropium 0.02% Inh Soln 2.5ml UD HHN SCH ×2 (19:00→23:41)
--- NOTE | 2018-09-05 19:26 | NUR ---
HAND-OFF: Report given to Lily WRIGHT.
--- NOTE | 2018-09-05 19:34 | NUR ---
NURSE NOTES: Received report from KYLE Gibson. Patient is asleep lying semi-edmonds's; resting comfortably. Arousable to verbal and tactile stimuli. No signs of acute distress or pain noted at this time. On 2L nasal cannula. AOx1; unable to make needs known. Aphasic. Checked IV site; patent and flushed. No erythema, bleeding, or infiltration noted. Wound dressing dry and intact. G-tube flushed and auscultated; patent. Glucerna 1.2 running at 40 mls/hr for a goal of 55 mls/hr. Bed at lowest position, brakes on, siderails up x3. Siderails padded following seizure precautions. Call light within reach. Will continue to monitor.
[2018-09-05 20:00] VITALS: BP 160/72
[2018-09-05] MEDS ORDERED: Verapamil SR 240mg tab ORAL SCH (21:00)
[2018-09-05] MEDS ORDERED: Doxycycline Hyclate 100 MG in D5W 110 ML IV SCH (21:00)
--- NOTE | 2018-09-05 21:00 | History and Physical Report ---
DATE OF ADMISSION: 09/05/2018 CHIEF COMPLAINT: Transferred from senior care because of cough and weakness. HISTORY OF PRESENT ILLNESS: This is a 72-year-old female with past medical history significant for prior history of sepsis and septic shock, history of chronic diastolic congestive heart failure, bacteremia, generalized weakness, contraction of the extremities, morbid obesity, history of hypernatremia, paroxysmal atrial fibrillation, sick sinus syndrome with status post pacemaker, major depression, hypothyroidism, metabolic encephalopathy, prior history of respiratory failure with hypoxemia, dysphagia status post PEG, dyslipidemia, seizure disorder, essential hypertension, history of CVA with right-sided hemiparesis, acute kidney disease, and status post PEG placement, who presented to the hospital from nursing [facility] after she was noted to have altered mental status and coughing. Shortly after initial evaluation, the patient was noted to have pneumonia on a chest x-ray and dehydration and subsequently the patient was admitted to the hospital to telemetry with dehydration, pneumonia, and atrial fibrillation with rapid ventricular rate. PAST MEDICAL HISTORY/PAST SURGICAL HISTORY: As above. History is very limited secondary to the patient's status nonverbal and contracted. Most of the history is taken from senior care documentation as well as ER chart. The patient has a history of prior history of septic shock with sepsis, chronic diastolic congestive heart failure, bacteremia, morbid obesity, hypernatremia with hyperosmolality, hypovolemia, paroxysmal atrial fibrillation, depression, hypothyroidism, metabolic encephalopathy, morbid obesity, acute hypoxemic respiratory failure, hypokalemia, dyslipidemia, hypertension, seizure disorder, prior history of stroke with left-sided non-dominant side hemiparesis, history of GERD, acute kidney injury, dysphagia status post PEG, and status post pacemaker placement. MEDICATIONS: Medications from nursing facility, please refer to medication reconciliation. ALLERGIES: , diazepam, hydrochlorothiazide, penicillin, hydromorphone, morphine and penicillin G. SOCIAL HISTORY: The patient denies any smoking, alcohol, or drugs at this time. [facility] resident. FAMILY HISTORY: Noncontributory. REVIEW OF SYSTEMS: Very limited secondary to the patient's status. No fever was reported. No nausea or vomiting. No seizure activity. PHYSICAL EXAMINATION: VITAL SIGNS: On admission, temperature 97.9, pulse 65, respirations 16, and blood pressure 140/96. GENERAL: The patient opens her eyes, cannot follow commands. HEAD AND NECK: Pupils are equal and reactive to light. Left conjunctival erythema. Neck was supple. No JVD. LUNGS: Good air entry. No wheezes. Positive rhonchi and coarse breath sounds. HEART: S1 and S2. Irregular. No murmur. The patient has pacemaker in left-sided chest wall was noted. ABDOMEN: Soft, nondistended, and nontender. Morbidly obese. PEG site is clean. EXTREMITIES: No cyanosis, clubbing, or edema. NEUROLOGIC: Very limited secondary to the patient's status. The patient has contraction of upper extremities as well as lower extremity functional quadriplegia as well as weakness on the left side greater than right side. RECTAL: Refused and deferred. GENITOURINARY: Refused and deferred. PSYCHIATRIC: Mood and affect, unable to obtain. LABORATORY AND DIAGNOSTIC DATA: Laboratory on admission from the ER, WBC of 15, hemoglobin 16, hematocrit 51, and platelets 292,000. Sodium is 140, potassium 3.8, chloride 99, bicarb 31, BUN 18, and creatinine 0.8. Glucose is 138. Lactic acid 3.50, repeat one is 1.90. AST of 24, ALT of 19, alkaline phosphate is 102. Troponin 0.03. ProBNP of 640. Total protein is 9.1, albumin 2.4. Lipase is 187. UA is +3 protein, +3 blood, positive nitrite, 60 to 80 wbc's, +3 leukocytes, many squamous cells, and many bacteria. Influenza A and B negative. Chest x-ray is a patchy right basilar infiltrate, most likely pneumonia. EKG is noted to be atrial fibrillation with ventricular rate of 80. No ST elevation was noted. ASSESSMENT: 1. Sepsis secondary to pneumonia. 2. Atrial fibrillation with rapid ventricular rate. 3. Lactic acidosis. 4. Functional quadriplegia. 5. Urinary tract infection. 6. Hypothyroidism. 7. Chronic iron deficiency anemia. 8. Hypertension. 9. Sick sinus syndrome/pacemaker. 10. Basal ganglia cerebrovascular accident with hemiparesis. 11. Seizure disorder. 12. Morbid obesity. 13. Dysphagia status post percutaneous endoscopic gastrostomy. PLAN: Admit the patient to monitored unit. We will follow up with the echocardiogram, which shows that ejection fraction is 55%. No evidence of left ventricular hypertrophy. At this time, the patient has a POLST, which is noted to be Full Code. We will start the patient on broad-spectrum antibiotics with cefepime and vancomycin since the patient is a senior care resident to cover nosocomial infection. We will resume senior care medication. The patient's consultation with Dr. Wyatt from Cardiology Electrophysiology and Dr. Marques Lau from Pulmonary Critical Care. Joshua Ramsey M.D. DR: MARIBEL JOB#: [id number] CC:
[2018-09-05] MEDS: Atorvastatin 20mg tab GT SCH (22:22)
[2018-09-05] MEDS: levETIRAcetam 500mg/5ml Liquid NG SCH (22:23)
--- NOTE | 2018-09-05 23:55 | Consultation ---
History of Present Illness General Chief Complaint: Generalized Weakness Present Illness HPI 72-year-old female with past medical history significant for prior history of sepsis and septic shock, history of chronic diastolic congestive heart failure, bacteremia, generalized weakness, contraction of the extremities, morbid obesity , history of hypernatremia, paroxysmal atrial fibrillation, , major depression, hypothyroidism, metabolic encephalopathy, prior history of respiratory failure with hypoxemia, dysphagia status post PEG, dyslipidemia, seizure disorder, essential hypertension, history of CVA with right-sided hemiparesis, acute kidney disease, and status post PEG placement, [facility] was noted to have altered mental status the pt was confused the daughter provided hx.the pt has memory impairment waxing and waning of consciousness Allergies: Coded Allergies: CHLORDIAZEPOXIDE (Verified Allergy, Mild, 01/05/10) DIAZEPAM (Verified Allergy, Mild, 01/05/10) HYDROCHLOROTHIAZIDE (Verified Allergy, Mild, 01/05/10) PENICILLIN G (Verified Allergy, Mild, HIVES, 01/05/10) HYDROMORPHONE (Unverified Allergy, Unknown, 02/22/17) MORPHINE (Unverified Allergy, Unknown, 02/22/17) PENICILLINS (Unverified Allergy, Unknown, 02/22/17) Uncoded Allergies: HYDROCHLOROTHIAZIDE (Allergy, Unknown, 02/22/17) Medication History Scheduled Amino Acids/Protein Hydrolys (Proteinex Liquid), 30 ML GT THREE TIMES A DAY, ( Reported) Apixaban (Eliquis), 5 MG GT TWICE A DAY, (Reported) Atorvastatin Calcium* (Atorvastatin Calcium*), 40 MG GT BEDTIME, (Reported) Bisacodyl (Bisacodyl), 10 MG RC DAILY, (Reported) Cranberry Fruit Concentrate (Cranberry), 450 MG PO TWICE A DAY, (Reported) Digoxin* (Digoxin*), 0.125 MG GT DAILY, (Reported) Docusate Sodium* (Colace*), 100 MG GT DAILY, (Reported) Lactulose (Lactulose), 20 GM GT TWICE A DAY, (Reported) Levetiracetam (Keppra), 750 MG GT TWICE A DAY, (Reported) Levothyroxine Sodium* (Synthroid*), 50 MCG GT DAILY, (Reported) Magnesium Hydroxide (Milk of Magnesia), 30 ML GT DAILY, (Reported) Multivitamin with Minerals (Multivitamins with Minerals), 1 TAB GT DAILY, ( Reported) Omeprazole (Prilosec), 40 MG ORAL DAILY, (Reported) Tramadol Hcl (Tramadol Hcl), 50 MG GT BEDTIME, (Reported) Vit C/Ascorbate Ca/Ascorb Sod (Vitamin C 500 Mg/15 Ml Liquid), 500 MG GT TWICE A DAY, (Reported) Scheduled PRN Acetaminophen* (Tylenol Extra Strength*), 1,000 MG GT Q4HR PRN for Mild Pain/ Temp > 100.5, (Reported) Sennosides (Senna), 8.6 MG PO BEDTIME PRN for Constipation, (Reported) Miscellaneous Medications Na Phos,M-B/Na Phos,Di-Ba (Fleet Enema), 133 ML RC, (Reported) Discontinued Medications Acetaminophen* (Acetaminophen 325MG Tablet*), 650 MG GT Q4H PRN for Pain Scale ( 3-5), (Reported) Discontinued Reason: Pt stopped taking med Acetaminophen* (Acetaminophen 325MG Tablet*), 650 MG ORAL Q4H, (Reported) Discontinued Reason: Pt stopped taking med Amino Acids/Protein Hydrolys (Pro-Stat Liquid), 30 ML GT TWICE A DAY, (Reported) Discontinued Reason: Pt stopped taking med Amlodipine Besylate (Norvasc), 2.5 MG GT DAILY, (Reported) Discontinued Reason: Pt stopped taking med Benazepril Hcl* (Benazepril Hcl*), 40 MG ORAL DAILY, (Reported) Discontinued Reason: Pt stopped taking med Bisacodyl* (Dulcolax*), 5 MG ORAL DAILY PRN for Constipation, (Reported) Discontinued Reason: Pt stopped taking med Clonidine HCl (Catapres-Tts 2), 1 PATCH TDERMAL DAILY, (Reported) Discontinued Reason: Pt stopped taking med Clotrimazole (Clotrimazole), 30 GM TP BID, (Reported) Discontinued Reason: Pt stopped taking med Diazepam* (Diazepam*), 10 MG VAGIN DAILY, (Reported) Discontinued Reason: Pt stopped taking med Ferrous Sulfate (Ferrous Sulfate), 1 TAB GT TWICE A DAY, (Reported) Discontinued Reason: MD discontinued med Hydralazine Hcl* (Hydralazine Hcl*), 25 MG ORAL BID, (Reported) Discontinued Reason: Pt stopped taking med Hydralazine Hcl* (Hydralazine Hcl*), 50 MG ORAL EVERY 8 HOURS, (Reported) Discontinued Reason: Pt stopped taking med Levothyroxine Sodium* (Levothyroxine Sodium*), 100 MCG ORAL DAILY, (Reported) Discontinued Reason: Medication dose changed Magnesium Oxide (Magnesium Oxide), 250 MG PO DAILY, (Reported) Discontinued Reason: Pt stopped taking med Methadone Hcl* (Methadone*), 5 MG PO EVERY 8 HOURS, (Reported) Discontinued Reason: Pt stopped taking med Oxycodone Hcl/Acetaminophen 10-325 Mg Tablet (Percocet 10-325 Mg Tablet*), 1 TAB ORAL Q6H PRN for For Pain, (Reported) Discontinued Reason: Pt stopped taking med Verapamil Hcl* (Calan Sr*), 240 MG ORAL BID, (Reported) Discontinued Reason: Pt stopped taking med Patient History Limited by: medical condition History Provided By: Family Member, PMD Healthcare decision maker Resuscitation status Full Code Advanced Directive on File No Past Medical/Surgical History Past Medical/Surgical History: (1) Acute pelvic pain (2) Hypertension (3) Hypokalemia (4) Dehydration (5) Sepsis (6) UTI (urinary tract infection) (7) Atrial fibrillation with RVR Review of Systems Psychiatric: Reports: prior hx, anxiety, depressed feelings Physical Exam General Appearance: alert, lethargic, confused, agitated, obese Last 24 Hour Vital Signs Date Time Temp Pulse Resp B/P (MAP) Pulse Ox O2 Delivery O2 Flow Rate FiO2 09/05/18 23:50 Nasal Cannula 2.0 28 09/05/18 23:50 94 Nasal Cannula 2.0 09/05/18 23:50 70 20 96 Nasal Cannula 2.0 28 09/05/18 23:47 69 22 Nasal Cannula 2.0 09/05/18 23:40 69 22 94 Nasal Cannula 2.0 09/05/18 22:22 160/72 09/05/18 20:00 98.4 72 20 160/72 (101) 96 09/05/18 16:00 98.1 101 20 140/97 (111) 98 09/05/18 16:00 71 09/05/18 15:13 Nasal Cannula 2.0 09/05/18 13:16 113/78 09/05/18 13:15 105 09/05/18 12:00 82 09/05/18 12:00 98.1 114 20 113/78 (90) 98 09/05/18 09:00 Nasal Cannula 2.0 09/05/18 08:00 98.8 20 129/98 (108) 98 09/05/18 05:04 Nasal Cannula 2.0 09/05/18 05:03 107 09/05/18 03:50 98.4 116 32 135/50 98 Room Air 2.0 09/05/18 03:40 98.4 116 32 135/50 98 Room Air 09/05/18 01:40 89 16 Nasal Cannula 2.0 09/05/18 00:05 98.5 89 16 158/96 99 Room Air 09/05/18 00:05 97.9 65 16 140/96 99 Room Air Laboratory Tests Test 09/05/18 01:00 09/05/18 01:20 09/05/18 03:00 White Blood Count 15.1 K/UL (4.8-10.8) H Red Blood Count 5.40 M/UL (4.20-5.40) Hemoglobin 16.4 G/DL (12.0-16.0) H Hematocrit 51.4 % (37.0-47.0) H Mean Corpuscular Volume 95 FL (80-99) Mean Corpuscular Hemoglobin 30.4 PG (27.0-31.0) Mean Corpuscular Hemoglobin Concent 31.9 G/DL (32.0-36.0) L Red Cell Distribution Width 14.4 % (11.6-14.8) Platelet Count 292 K/UL (150-450) Mean Platelet Volume 6.0 FL (6.5-10.1) L Neutrophils (%) (Auto) % (45.0-75.0) Lymphocytes (%) (Auto) % (20.0-45.0) Monocytes (%) (Auto) % (1.0-10.0) Eosinophils (%) (Auto) % (0.0-3.0) Basophils (%) (Auto) % (0.0-2.0) Sodium Level 140 MMOL/L (136-145) Potassium Level 3.8 MMOL/L (3.5-5.1) Chloride Level 99 MMOL/L (98-107) Carbon Dioxide Level 31 MMOL/L (21-32) Anion Gap 10 mmol/L (5-15) Blood Urea Nitrogen 18 mg/dL (7-18) Creatinine 0.8 MG/DL (0.55-1.30) Estimat Glomerular Filtration Rate mL/min (>60) Glucose Level 138 MG/DL (74-106) H Lactic Acid Level 3.50 mmol/L (0.4-2.0) H 1.90 mmol/L (0.66-2.22) Calcium Level 9.7 MG/DL (8.5-10.1) Total Bilirubin 0.9 MG/DL (0.2-1.0) Aspartate Amino Transf (AST/SGOT) 24 U/L (15-37) Alanine Aminotransferase (ALT/SGPT) 19 U/L (12-78) Alkaline Phosphatase 102 U/L (46-116) Total Creatine Kinase 82 U/L (26-308) Creatine Kinase MB 1.5 NG/ML (0.0-3.6) Creatine Kinase MB Relative Index 1.8 Troponin I 0.033 ng/mL (0.000-0.056) Pro-B-Type Natriuretic Peptide 640 pg/mL (0-125) H Total Protein 9.1 G/DL (6.4-8.2) H Albumin 3.4 G/DL (3.4-5.0) Globulin 5.7 g/dL Albumin/Globulin Ratio 0.6 (1.0-2.7) L Lipase 187 U/L (73-393) Urine Color Yellow Urine Appearance Cloudy Urine pH 7 (4.5-8.0) Urine Specific [place] 1.010 (1.005-1.035) Urine Protein 3+ (NEGATIVE) H Urine Glucose (UA) Negative (NEGATIVE) Urine Ketones Negative (NEGATIVE) Urine Blood 3+ (NEGATIVE) H Urine Nitrite Positive (NEGATIVE) H Urine Bilirubin Negative (NEGATIVE) Urine Urobilinogen 1 MG/DL (0.0-1.0) H Urine Leukocyte Esterase 3+ (NEGATIVE) H Urine RBC 10-15 /HPF (0 - 2) H Urine WBC 60-80 /HPF (0 - 2) H Urine Squamous Epithelial Cells Moderate /LPF (NONE/OCC) H Urine Bacteria Many /HPF (NONE) H Microbiology Date/Time Source Procedure Growth Status 09/05/18 00:30 Nasal Nares Influenza Types A,B Antigen (LEXI) - Final Complete Height (Feet): 5 Height (Inches): 5.00 Weight (Pounds): 230 Medications Current Medications Medications (Trade) Dose Ordered Sig/Richard Route PRN Reason Start Time Stop Time Status Last Admin Dose Admin Acetaminophen (Tylenol) 650 mg Q6H PRN GT Mild Pain/Temp > 100.5 09/05/18 12:15 10/05/18 12:14 Apixaban (Eliquis) 5 mg BID GT 09/05/18 18:00 10/05/18 17:59 09/05/18 17:18 Atorvastatin Calcium (Lipitor) 40 mg BEDTIME GT 09/05/18 21:00 10/05/18 20:59 09/05/18 22:22 Digoxin (Lanoxin) 0.125 mg DAILY GT 09/05/18 12:30 10/05/18 12:29 09/05/18 13:15 Hydralazine HCl (Apresoline) 50 mg Q8HR ORAL 09/05/18 14:00 10/05/18 13:59 09/05/18 22:22 Ipratropium [place] (Atrovent) 500 mcg Q6HRT HHN 09/05/18 19:00 09/10/18 18:59 09/05/18 23:41 Lansoprazole (Prevacid) 30 mg DAILY GT 09/06/18 09:00 10/06/18 08:59 Levetiracetam (Keppra) 750 mg Q12HR NG 09/05/18 21:00 10/05/18 20:59 09/05/18 22:23 Levofloxacin 100 ml @ 100 mls/hr Q24H IVPB 09/05/18 21:00 09/12/18 20:59 09/05/18 22:22 Levothyroxine Sodium (Synthroid) 50 mcg DAILY@0630 GT 09/06/18 06:30 10/06/18 06:29 Magnesium Oxide (Mag-Ox 400mg) 250 mg DAILY GT 09/05/18 12:30 10/05/18 12:29 09/05/18 13:16 Vancomycin HCl (Vanco rx to dose) 1 ea DAILY PRN MISC Per rx protocol 09/05/18 15:45 10/05/18 15:44 Vancomycin/Sodium Chloride 250 ml @ 166.667 mls/hr Q12H IVPB 09/05/18 17:00 09/10/18 16:59 09/05/18 17:18 Assessment/Plan Problem List: (1) Dementia ICD Codes: F03.90 - Unspecified dementia without behavioral disturbance SNOMED: 82225614 (2) encephalopathy with metabolic factor Assessment/Plan dc valium seroquel prn admitting orders were placed Flores Tavares MD Sep 05, 2018 23:55
[2018-09-06] VITALS: BP 142/70
[2018-09-06 04:00] VITALS: BP 141/92
--- NOTE | 2018-09-06 05:59 | NUR ---
NURSE NOTES: Called Dr. Ramsey regarding patient's right arm noted to be more swollen than her left arm. Awaiting callback for any further orders. Addendum: 09/06/18 at 0612 by MOLLY CAGLE RN RN Also notified Dr. Ramsey regarding patient's blood culture being positive for gram positive cocci.
--- NOTE | 2018-09-06 06:04 | NUR ---
NURSE NOTES: Left a message through Dr. Wyatt's exchange to notify him regarding patient having an episode of 5 beats of V-tach. Awaiting callback.
[2018-09-06] MEDS: Vancomycin 750mg/NS 250ml IVPB SCH ×2 (06:06→17:41)
[2018-09-06] MEDS: HydrALAZINE 50mg tab ORAL SCH ×3 (06:15→21:14)
--- NOTE | 2018-09-06 06:31 | NUR ---
NURSE NOTES: Received new order from Dr. Ramsey for venous duplex of right arm. No new orders as far as blood culture result. Noted and carried out.
--- NOTE | 2018-09-06 06:47 | NUR ---
NURSE NOTES: Received new orders from Dr. Wyatt and was told that Dr. Hernandez will be covering him until the 10 of September. Noted and carried out.
--- NOTE | 2018-09-06 07:18 | NUR ---
HAND-OFF: Report given to KYLE Carson. Patient is asleep lying semi-edmonds's; resting comfortably. In stable condition.
[2018-09-06] MEDS: Ipratropium 0.02% Inh Soln 2.5ml UD HHN SCH ×3 (07:26→19:16)
--- NOTE | 2018-09-06 07:49 | NUR ---
NURSE NOTES: Bedside report received from Jacob WRIGHT . patient is a x 1 and not oriented. resting with closed eyes in her bed . no s/s of SOB and pain at this time. iv intact and patent. skin intact . call light and frequent used objects are with in reach. g-Tube feeding running at 50 cc / hour the goal is 55. no residual noted at this time HOB kept elevated for safety reasons. bed at lowest position , rails up x 3 for safety reasons. seizure precaution in place . will follow up and continue to monitor.
[2018-09-06 08:00] VITALS: BP 132/72
[2018-09-06] MEDS: Magnesium Oxide 400mg tab GT SCH (10:03)
[2018-09-06] MEDS: Digoxin 0.125mg tab GT SCH (10:04)
[2018-09-06] MEDS: Eliquis 2.5mg tablet GT SCH ×2 (10:05→17:41)
[2018-09-06] MEDS: levETIRAcetam 500mg/5ml Liquid NG SCH ×2 (10:05→21:13)
--- NOTE | 2018-09-06 11:57 | Cardiology Progress Note ---
Assessment/Plan Status: stable Assessment/Plan ASSESSMENT AND PLAN: 1. Atrial fibrillation with rapid ventricular response. Resume the patient's verapamil 240 mg b.i.d. and discontinue amlodipine. The patient is also on digoxin and is on Eliquis 5 mg b.i.d. for anticoagulation purposes. 2. Status post [employer] pacemaker in 2013. The pacemaker may need to be interrogated. 3. Hypothyroidism, on Synthroid. 4. Dementia. 5. Dysphagia, status post G-tube. 6. Hyperlipidemia, on Lipitor. 7. Essential hypertension. Continue maximizing her antiarrhythmic therapy with verapamil as the patient has atrial fibrillation with rapid ventricular response. 8. Outpatient stress test Subjective Cardiovascular: Reports: no symptoms Respiratory: Reports: no symptoms Gastrointestinal/Abdominal: Reports: no symptoms Genitourinary: Reports: no symptoms Subjective COVERAGE FOR TOLUE No acute events, 5 beats vtach, LVEF on echo 55% Objective Last 24 Hour Vital Signs Date Time Temp Pulse Resp B/P (MAP) Pulse Ox O2 Delivery O2 Flow Rate FiO2 09/06/18 10:04 94 09/06/18 09:00 Nasal Cannula 2.0 09/06/18 08:00 97.7 94 16 132/72 (92) 100 09/06/18 07:35 72 20 97 Nasal Cannula 2.0 28 09/06/18 07:26 71 20 98 Nasal Cannula 2.0 09/06/18 07:26 96 Nasal Cannula 2.0 09/06/18 07:26 Nasal Cannula 2.0 28 09/06/18 06:15 141/92 09/06/18 04:00 97.2 97 20 141/92 (108) 98 09/06/18 04:00 95 09/06/18 00:00 98.2 70 20 142/70 (94) 96 09/06/18 00:00 70 09/05/18 23:50 Nasal Cannula 2.0 28 09/05/18 23:50 94 Nasal Cannula 2.0 09/05/18 23:50 70 20 96 Nasal Cannula 2.0 28 09/05/18 23:47 69 22 Nasal Cannula 2.0 09/05/18 23:40 69 22 94 Nasal Cannula 2.0 09/05/18 22:22 160/72 09/05/18 21:00 Nasal Cannula 2.0 09/05/18 20:00 98.4 72 20 160/72 (101) 96 09/05/18 20:00 71 09/05/18 16:00 98.1 101 20 140/97 (111) 98 09/05/18 16:00 71 09/05/18 15:13 Nasal Cannula 2.0 09/05/18 13:16 113/78 09/05/18 13:15 105 09/05/18 12:00 82 09/05/18 12:00 98.1 114 20 113/78 (90) 98 General Appearance: no apparent distress, alert EENT: PERRL/EOMI, normal ENT inspection, TMs normal Neck: non-tender, normal alignment, supple, normal inspection, no JVD Rhythm: NSR Cardiovascular: normal peripheral pulses, normal rate, regular rhythm Respiratory/Chest: chest wall non-tender, lungs clear Abdomen: normal bowel sounds, non tender, soft, no organomegaly Extremities: normal range of motion, non-tender, normal inspection Neurologic: employment educational coord II-XII grossly normal Intake and Output 09/05/18 09/06/18 19:00 07:00 Intake Total 40 ml 670 ml Balance 40 ml 670 ml Intake Free Water 120 ml IV Total 100 ml Tube Feeding 40 ml 450 ml # Voids 2 2 Laboratory Tests Test 09/06/18 05:20 09/06/18 06:20 Troponin I 0.052 ng/mL (0.000-0.056) Pro-B-Type Natriuretic Peptide 2212 pg/mL (0-125) H Digoxin Level 0.7 NG/ML (0.9-2.0) L Magnesium Level 1.9 MG/DL (1.8-2.4) Microbiology Date/Time Source Procedure Growth Status 09/05/18 01:00 Blood Blood Culture - Preliminary Gram Positive Cocci Resulted 09/05/18 00:45 Blood Blood Culture - Preliminary NO GROWTH AFTER 24 HOURS Resulted 09/05/18 00:30 Nasal Nares Influenza Types A,B Antigen (LEXI) - Final Complete 09/05/18 01:20 Urine,Clean Catch Urine Culture - Preliminary Gram Negative Mac Resulted Marques Hernandez MD Sep 06, 2018 11:57
[2018-09-06 12:00] VITALS: BP 134/96
--- NOTE | 2018-09-06 12:16 | Cardiology Report ---
APPROVED REPORT EXAM: Two-dimensional and M-mode echocardiogram with Doppler and color Doppler. INDICATION Congestive Heart Failure M-Mode DIMENSIONS IVSd1.9 (0.7-1.1cm)Left Atrium (MM)4.7 (1.6-4.0cm) LVDd2.2 (3.5-5.6cm)Aortic Root3.2 (2.0-3.7cm) PWd1.5 (0.7-1.1cm)Aortic Cusp Exc.2.3 (1.5-2.0cm) LVDs2.0 (2.5-4.0cm) PWs2.2 cm Technically difficult study due to poor acoustic windows. Study quality precludes accurate assessment of regional wall motion. Normal left ventricular chamber size, systolic function and wall motion. Left ventricular ejection fraction estimated to be 55 %. No evidence of left ventricular hypertrophy. Anterior Echo-free space, may be due to pericardial fat or effusion. Moderate left atrial enlargement. Right cardiac chamber sizes are within normal limits. Mildly focal aortic valve sclerosis with adequate cusp excursion. Mildly thickened mitral valve leaflets with normal excursion. Mild mitral annulus and aortic root calcification. Normal pulmonic valve structure. Normal tricuspid valve structure. IVC is normal in size with physiological collapse. pacing wire in RV A color flow and spectral Doppler study was performed and revealed: No aortic insufficiency. No mitral regurgitation. Left ventricular diastolic function could not be determined due to A-Fib. Mild tricuspid regurgitation. Tricuspid systolic velocities suggests peak right ventricular systolic pressure of 42 mmHg, consistent with mild pulmonary hypertension. Trace pulmonic regurgitation present.
[2018-09-06] MEDS: Verapamil 80mg tab GT SCH ×2 (15:18→21:13)
[2018-09-06 16:00] VITALS: BP 151/77
--- NOTE | 2018-09-06 17:15 | Internal Med Progress Note ---
Subjective Date of Service: Sep 06, 2018 Physician Name Salvador Saravia Attending Physician Joshua Ramsey MD Current Medications Medications (Trade) Dose Ordered Sig/Richard Route PRN Reason Start Time Stop Time Status Last Admin Dose Admin Acetaminophen (Tylenol) 650 mg Q6H PRN GT Mild Pain/Temp > 100.5 09/05/18 12:15 10/05/18 12:14 Apixaban (Eliquis) 5 mg BID GT 09/05/18 18:00 10/05/18 17:59 09/06/18 10:05 Atorvastatin Calcium (Lipitor) 40 mg BEDTIME GT 09/05/18 21:00 10/05/18 20:59 09/05/18 22:22 Digoxin (Lanoxin) 0.125 mg DAILY GT 09/05/18 12:30 10/05/18 12:29 09/06/18 10:04 Hydralazine HCl (Apresoline) 50 mg Q8HR ORAL 09/05/18 14:00 10/05/18 13:59 09/06/18 15:17 Ipratropium [place] (Atrovent) 500 mcg Q6HRT HHN 09/05/18 19:00 09/10/18 18:59 09/06/18 13:34 Lansoprazole (Prevacid) 30 mg DAILY GT 09/06/18 09:00 10/06/18 08:59 09/06/18 10:04 Levetiracetam (Keppra) 750 mg Q12HR NG 09/05/18 21:00 10/05/18 20:59 09/06/18 10:05 Levofloxacin 100 ml @ 100 mls/hr Q24H IVPB 09/05/18 21:00 09/12/18 20:59 09/05/18 22:22 Levothyroxine Sodium (Synthroid) 50 mcg DAILY@0630 GT 09/06/18 06:30 10/06/18 06:29 09/06/18 06:15 Magnesium Oxide (Mag-Ox 400mg) 250 mg DAILY GT 09/05/18 12:30 10/05/18 12:29 09/06/18 10:03 Quetiapine Fumarate (SEROquel) 12.5 mg Q4H PRN GT agitation 09/06/18 12:30 10/06/18 00:00 Vancomycin HCl (Vanco rx to dose) 1 ea DAILY PRN MISC Per rx protocol 09/05/18 15:45 10/05/18 15:44 Vancomycin/Sodium Chloride 250 ml @ 166.667 mls/hr Q12H IVPB 09/05/18 17:00 09/10/18 16:59 09/06/18 06:06 Verapamil HCl (Calan) 160 mg Q8HR GT 09/06/18 13:00 10/06/18 12:59 09/06/18 15:18 Allergies: Coded Allergies: CHLORDIAZEPOXIDE (Verified Allergy, Mild, 01/05/10) DIAZEPAM (Verified Allergy, Mild, 01/05/10) HYDROCHLOROTHIAZIDE (Verified Allergy, Mild, 01/05/10) PENICILLIN G (Verified Allergy, Mild, HIVES, 01/05/10) HYDROMORPHONE (Unverified Allergy, Unknown, 02/22/17) MORPHINE (Unverified Allergy, Unknown, 02/22/17) PENICILLINS (Unverified Allergy, Unknown, 02/22/17) Uncoded Allergies: HYDROCHLOROTHIAZIDE (Allergy, Unknown, 02/22/17) ROS Limited/Unobtainable: Yes Subjective 72 YO F admitted with cough and gen weakness. Now pneumonia. Cover for Int Med -Dr Ramsey Objective Last Vital Signs Date Time Temp Pulse Resp B/P (MAP) Pulse Ox O2 Delivery O2 Flow Rate FiO2 09/06/18 16:00 98.6 84 18 151/77 (101) 98 09/06/18 13:40 Nasal Cannula 2.0 28 Laboratory Tests Test 09/06/18 05:20 09/06/18 06:20 Troponin I 0.052 ng/mL (0.000-0.056) Pro-B-Type Natriuretic Peptide 2212 pg/mL (0-125) H Digoxin Level 0.7 NG/ML (0.9-2.0) L Magnesium Level 1.9 MG/DL (1.8-2.4) Microbiology Date/Time Source Procedure Growth Status 09/05/18 01:00 Blood Blood Culture - Preliminary Gram Positive Cocci Resulted 09/05/18 00:45 Blood Blood Culture - Preliminary NO GROWTH AFTER 24 HOURS Resulted 09/05/18 00:30 Nasal Nares Influenza Types A,B Antigen (LEXI) - Final Complete 09/05/18 01:20 Urine,Clean Catch Urine Culture - Preliminary Gram Negative Mac Resulted Intake and Output 09/05/18 09/06/18 19:00 07:00 Intake Total 40 ml 670 ml Balance 40 ml 670 ml Intake Free Water 120 ml IV Total 100 ml Tube Feeding 40 ml 450 ml # Voids 2 2 Objective PHYSICAL EXAMINATION: GENERAL: The patient opens her eyes, cannot follow commands. HEAD AND NECK: Pupils are equal and reactive to light. Left conjunctival erythema. Neck was supple. No JVD. LUNGS: Good air entry. No wheezes. Positive rhonchi and coarse breath sounds. HEART: S1 and S2. Irregular. No murmur. The patient has pacemaker in left-sided chest wall was noted. ABDOMEN: Soft, nondistended, and nontender. Morbidly obese. PEG site is clean. EXTREMITIES: No cyanosis, clubbing, or edema. NEUROLOGIC: Very limited secondary to the patient's status. The patient has contraction of upper extremities as well as lower extremity functional quadriplegia as well as weakness on the left side greater than right side. RECTAL: Refused and deferred. GENITOURINARY: Refused and deferred. PSYCHIATRIC: Mood and affect, unable to obtain. Assessment/Plan Problem List: (1) Hypothyroidism Assessment & Plan: continue levoxyl (2) Dysphagia (3) Hypercholesteremia (4) HTN (hypertension) Assessment & Plan: Cont verapamil (5) Seizure disorder Assessment & Plan: Continue keppra (6) Right hemiplegia (7) Cerebral vascular disease (8) Pacemaker (9) Sick sinus syndrome (10) CHF (congestive heart failure) Assessment & Plan: See cardiology note. (11) Atrial fibrillation with RVR Assessment & Plan: Continue digoxin per cardiology (12) Pneumonia Assessment & Plan: Continue levaquin and vanco per Salvador Maher MD Sep 06, 2018 17:15
--- NOTE | 2018-09-06 19:09 | NUR ---
HAND-OFF: Report given to Jacob WRIGHT.
--- NOTE | 2018-09-06 19:18 | NUR ---
NURSE NOTES: Received report from KYLE Carson. Patient is awake lying semi-edmonds's receiving scheduled breathing treatment; resting comfortably. No signs of acute distress or pain noted at this time. On 2L nasal cannula. AOx1; unable to verbalize needs. Aphasic. Checked IV site; patent and flushed. No erythema, bleeding, or infiltration noted. Wound dressing dry and intact. G-tube flushed and auscultated; patent. Glucerna 1.2 running at 50 mls/hr for a goal of 55 mls/hr. Bed at lowest position, brakes on, siderails up x3. Siderails padded following seizure precautions. Call light within reach. Will continue to monitor.
[2018-09-06 20:00] VITALS: BP 146/84
[2018-09-06] MEDS: Atorvastatin 20mg tab GT SCH (21:13)
--- NOTE | 2018-09-06 22:04 | General Progress Note ---
Assessment/Plan Problem List: (1) Dementia ICD Codes: F03.90 - Unspecified dementia without behavioral disturbance SNOMED: 63561034 (2) encephalopathy with metabolic factor Assessment/Plan dc valium seroquel prn admitting orders were placed Subjective Neurologic/Psychiatric: Reports: anxiety, depressed Allergies: Coded Allergies: CHLORDIAZEPOXIDE (Verified Allergy, Mild, 01/05/10) DIAZEPAM (Verified Allergy, Mild, 01/05/10) HYDROCHLOROTHIAZIDE (Verified Allergy, Mild, 01/05/10) PENICILLIN G (Verified Allergy, Mild, HIVES, 01/05/10) HYDROMORPHONE (Unverified Allergy, Unknown, 02/22/17) MORPHINE (Unverified Allergy, Unknown, 02/22/17) PENICILLINS (Unverified Allergy, Unknown, 02/22/17) Uncoded Allergies: HYDROCHLOROTHIAZIDE (Allergy, Unknown, 02/22/17) Objective Last 24 Hour Vital Signs Date Time Temp Pulse Resp B/P (MAP) Pulse Ox O2 Delivery O2 Flow Rate FiO2 09/06/18 21:14 166/70 09/06/18 21:13 90 166/70 09/06/18 19:27 74 20 96 Nasal Cannula 2.0 09/06/18 19:19 Nasal Cannula 2.0 28 09/06/18 19:17 75 20 95 Nasal Cannula 2.0 09/06/18 19:16 95 Nasal Cannula 2.0 09/06/18 16:00 98 09/06/18 16:00 98.6 84 18 151/77 (101) 98 09/06/18 15:18 87 134/96 09/06/18 15:17 134/96 09/06/18 13:40 71 20 97 Nasal Cannula 2.0 28 09/06/18 13:34 72 20 95 Nasal Cannula 2.0 09/06/18 12:00 98.3 94 18 134/96 (109) 96 09/06/18 12:00 95 09/06/18 10:04 94 09/06/18 09:00 Nasal Cannula 2.0 09/06/18 08:00 97.7 94 16 132/72 (92) 100 09/06/18 08:00 110 09/06/18 07:35 72 20 97 Nasal Cannula 2.0 09/06/18 07:26 71 20 98 Nasal Cannula 2.0 09/06/18 07:26 96 Nasal Cannula 2.0 09/06/18 07:26 Nasal Cannula 2.0 28 09/06/18 06:15 141/92 09/06/18 04:00 97.2 97 20 141/92 (108) 98 09/06/18 04:00 95 09/06/18 00:00 98.2 70 20 142/70 (94) 96 09/06/18 00:00 70 09/05/18 23:50 Nasal Cannula 2.0 28 09/05/18 23:50 94 Nasal Cannula 2.0 09/05/18 23:50 70 20 96 Nasal Cannula 2.0 28 09/05/18 23:47 69 22 Nasal Cannula 2.0 09/05/18 23:40 69 22 94 Nasal Cannula 2.0 09/05/18 22:22 160/72 Intake and Output 09/05/18 09/06/18 19:00 07:00 Intake Total 40 ml 670 ml Balance 40 ml 670 ml Intake Free Water 120 ml IV Total 100 ml Tube Feeding 40 ml 450 ml # Voids 2 2 Laboratory Tests 09/06/18 05:20: Troponin I 0.052, Pro-B-Type Natriuretic Peptide 2212H, Digoxin Level 0.7L 09/06/18 06:20: Magnesium Level 1.9 Height (Feet): 5 Height (Inches): 5.00 Weight (Pounds): 230 General Appearance: no apparent distress, alert Neurologic: oriented x 3, depressed affect Flores Tavares MD Sep 06, 2018 22:04
[2018-09-07] VITALS: BP 134/53
[2018-09-07] MEDS: Ipratropium 0.02% Inh Soln 2.5ml UD HHN SCH ×4 (01:13→20:15)
--- NOTE | 2018-09-07 03:27 | NUR ---
NURSE NOTES: Patient is asleep lying semi-edmonds's; resting comfortably. On 2L nasal cannula. No signs of acute distress or pain noted at this time. Patient on SPR mattress for appropriate wound management.
[2018-09-07 04:00] VITALS: BP 122/91
[2018-09-07] MEDS: Vancomycin 750mg/NS 250ml IVPB SCH ×2 (06:47→18:23)
[2018-09-07] MEDS: Verapamil 80mg tab GT SCH ×3 (06:58→21:13)
[2018-09-07] MEDS: HydrALAZINE 50mg tab ORAL SCH ×3 (06:58→21:13)
--- NOTE | 2018-09-07 07:50 | NUR ---
HAND-OFF: Report given to KYLE Carson. Patient is asleep lying semi-edmonds's; resting comfortably. On 2L nasal cannula. No seizure activity noted throughout shift. In stable condition.
--- NOTE | 2018-09-07 07:59 | NUR ---
NURSE NOTES: Bedside report received from Jacob WRIGHT . patient is a x 1 and not oriented. resting with closed eyes in her bed . no s/s of SOB and pain at this time. iv intact and patent. skin intact . call light and frequent used objects are with in reach. g-Tube feeding running at 55 cc / hour and the goal is 55. no residual noted at this time HOB kept elevated for safety reasons. bed at lowest position , rails up x 3 for safety reasons. seizure precaution in place . will follow up and continue to monitor.
[2018-09-07 08:03] VITALS: BP 140/95
--- NOTE | 2018-09-07 08:28 | Pulmonology Progress Note ---
Assessment/Plan Assessment/Plan Pulmonary Progress Note Patient seen 09/06/2018 Chief Complaint: Generalized Weakness, coughing HPI Patient presents from nursing facility with reports of being'sick' This is what the paramedics reported Patient herself appears to have had a previous large CVA Is nonverbal Noted to have Pneumonia on CXR History of present illness is significantly limited There was a report that the patient had been just recently transferred to the nursing facility from another hospitalization Allergies: Coded Allergies: CHLORDIAZEPOXIDE (Verified Allergy, Mild, 01/05/10) DIAZEPAM (Verified Allergy, Mild, 01/05/10) HYDROCHLOROTHIAZIDE (Verified Allergy, Mild, 01/05/10) PENICILLIN G (Verified Allergy, Mild, HIVES, 01/05/10) HYDROMORPHONE (Unverified Allergy, Unknown, 02/22/17) MORPHINE (Unverified Allergy, Unknown, 02/22/17) PENICILLINS (Unverified Allergy, Unknown, 02/22/17) Uncoded Allergies: HYDROCHLOROTHIAZIDE (Allergy, Unknown, 02/22/17) Patient History Limited by: medical condition Past Medical History: see triage record Pertinent Family History: unable to obtain Reviewed Nursing Documentation: PMH: Agreed; PSxH: Agreed Nursing Documentation-PMH Hx Cardiac Problems: Yes - CHF, paroxysmal a-fib, hypothyroidism, chronic iron deficiency anemia Hx Hypertension: Yes Hx Pacemaker: Yes History Of Psychiatric Problem: Yes - Depression degenerative disease of basal ganglia Hx Neurological Problems: Yes - Muscle weakness, ankle contracture, quadriplegia, metabolic encephalopathy, Hx Cerebrovascular Accident: Yes Hx Seizures: Yes Review of Systems All Other Systems: limited - Other than the ones mentioned in the history of present illness all others are reviewed however they do stay limited due to the patient's mental status Physical Exam Vital Signs Noted Sp02 EP Interpretation: reviewed, normal General Appearance: mild distress Head: atraumatic Eyes: bilateral eye PERRL ENT: dry mucus membranes Neck: supple Respiratory: crackles, other - Mildly tachypneic Cardiovascular #1: irregularly irregular Gastrointestinal: non tender, soft Musculoskeletal: other - Patient chronically debilitated, left hand is extended , does not follow commands Neurologic: responsive - To physical stimuli Skin: pallor Lymphatic: no adenopathy Impression: Primary Impression: Pneumonia, Sepsis Atrial fibrillation with RVR UTI (urinary tract infection) CHF, paroxysmal a-fib Hypothyroidism Chronic iron deficiency anemia HTN PPM Previous CVA, basal ganglia disease Seizure History Hx Hypertension: Yes Hx Pacemaker: Yes History Of Psychiatric Problem: Yes - Depression degenerative disease of basal ganglia Hx Neurological Problems: Yes - Muscle weakness, ankle contracture, quadriplegia, metabolic encephalopathy, Hx Cerebrovascular Accident: Yes Hx Seizures: Yes ER Course Patient is a fairly complex patient with multiple differential to consideration including but not limited to cardiac cardiopulmonary and vascular emergencies Patient required IV hydration and antibiotics Sepsis reexamination Time: Reevaluation VS refer to nursing note cvs: RRR respiratory: improved respiration peripheral pulses: 2+radial cap refill:<2 seconds skin exam: warm, dry, not mottled Patient continues to be in critical condition and admitted for further care Labs Test 09/05/18 01:00 09/05/18 01:20 09/05/18 03:00 White Blood Count 15.1 K/UL (4.8-10.8) Red Blood Count 5.40 M/UL (4.20-5.40) Hemoglobin 16.4 G/DL (12.0-16.0) Hematocrit 51.4 % (37.0-47.0) Mean Corpuscular Volume 95 FL (80-99) Mean Corpuscular Hemoglobin 30.4 PG (27.0-31.0) Mean Corpuscular Hemoglobin Concent 31.9 G/DL (32.0-36.0) Red Cell Distribution Width 14.4 % (11.6-14.8) Platelet Count 292 K/UL (150-450) Mean Platelet Volume 6.0 FL (6.5-10.1) Neutrophils (%) (Auto) % (45.0-75.0) Lymphocytes (%) (Auto) % (20.0-45.0) Monocytes (%) (Auto) % (1.0-10.0) Eosinophils (%) (Auto) % (0.0-3.0) Basophils (%) (Auto) % (0.0-2.0) Sodium Level 140 MMOL/L (136-145) Potassium Level 3.8 MMOL/L (3.5-5.1) Chloride Level 99 MMOL/L (98-107) Carbon Dioxide Level 31 MMOL/L (21-32) Anion Gap 10 mmol/L (5-15) Blood Urea Nitrogen 18 mg/dL (7-18) Creatinine 0.8 MG/DL (0.55-1.30) Estimat Glomerular Filtration Rate mL/min (>60) Glucose Level 138 MG/DL (74-106) Lactic Acid Level 3.50 mmol/L (0.4-2.0) 1.90 mmol/L (0.66-2.22) Calcium Level 9.7 MG/DL (8.5-10.1) Total Bilirubin 0.9 MG/DL (0.2-1.0) Aspartate Amino Transf (AST/SGOT) 24 U/L (15-37) Alanine Aminotransferase (ALT/SGPT) 19 U/L (12-78) Alkaline Phosphatase 102 U/L (46-116) Total Creatine Kinase 82 U/L (26-308) Creatine Kinase MB 1.5 NG/ML (0.0-3.6) Creatine Kinase MB Relative Index 1.8 Troponin I 0.033 ng/mL (0.000-0.056) Pro-B-Type Natriuretic Peptide 640 pg/mL (0-125) Total Protein 9.1 G/DL (6.4-8.2) Albumin 3.4 G/DL (3.4-5.0) Globulin 5.7 g/dL Albumin/Globulin Ratio 0.6 (1.0-2.7) Lipase 187 U/L (73-393) Urine Color Yellow Urine Appearance Cloudy Urine pH 7 (4.5-8.0) Urine Specific Orestes 1.010 (1.005-1.035) Urine Protein 3+ (NEGATIVE) Urine Glucose (UA) Negative (NEGATIVE) Urine Ketones Negative (NEGATIVE) Urine Blood 3+ (NEGATIVE) Urine Nitrite Positive (NEGATIVE) Urine Bilirubin Negative (NEGATIVE) Urine Urobilinogen 1 MG/DL (0.0-1.0) Urine Leukocyte Esterase 3+ (NEGATIVE) Urine RBC 10-15 /HPF (0 - 2) Urine WBC 60-80 /HPF (0 - 2) Urine Squamous Epithelial Cells Moderate /LPF (NONE/OCC) Urine Bacteria Many /HPF (NONE) EKG Diagnostic Results Rate: tachycardiac Rhythm: other - afib ST Segments: other - Nonspecific ST changes Rhythm Strip Diag. Results EP Interpretation: yes Rate: 80 Rhythm: no PVC's, no ectopy, other - Atrial fibrillation Chest X-Ray Diagnostic Results Chest X-Ray Diagnostic Results : Chest X-Ray Ordered: Yes # of Views/Limited/Complete: 1 View Indication: Chest Pain EP Interpretation: Yes Interpretation: no effusion, no pneumothorax, other - Right-sided marking concerning for infiltrated Impression: Other - Right-sided marking possible pneumonia Subjective ROS Limited/Unobtainable: No Allergies: Coded Allergies: CHLORDIAZEPOXIDE (Verified Allergy, Mild, 01/05/10) DIAZEPAM (Verified Allergy, Mild, 01/05/10) HYDROCHLOROTHIAZIDE (Verified Allergy, Mild, 01/05/10) PENICILLIN G (Verified Allergy, Mild, HIVES, 01/05/10) HYDROMORPHONE (Unverified Allergy, Unknown, 02/22/17) MORPHINE (Unverified Allergy, Unknown, 02/22/17) PENICILLINS (Unverified Allergy, Unknown, 02/22/17) Uncoded Allergies: HYDROCHLOROTHIAZIDE (Allergy, Unknown, 02/22/17) Objective Last 24 Hour Vital Signs Date Time Temp Pulse Resp B/P (MAP) Pulse Ox O2 Delivery O2 Flow Rate FiO2 09/07/18 08:03 98.2 72 20 140/95 (110) 98 09/07/18 07:35 79 18 99 Nasal Cannula 2.0 28 09/07/18 07:27 97 Nasal Cannula 2.0 28 09/07/18 07:27 Nasal Cannula 2.0 28 09/07/18 07:26 77 18 97 Nasal Cannula 2.0 28 09/07/18 06:58 71 146/92 09/07/18 06:58 146/92 09/07/18 04:00 70 09/07/18 04:00 98.2 71 20 122/91 (101) 98 09/07/18 01:24 69 20 98 Nasal Cannula 2.0 28 09/07/18 01:13 90 20 96 Nasal Cannula 2.0 09/07/18 00:00 98.1 80 20 134/53 (80) 95 09/07/18 00:00 71 09/06/18 21:14 166/70 09/06/18 21:13 90 166/70 09/06/18 21:00 Nasal Cannula 2.0 09/06/18 20:00 67 09/06/18 20:00 97.9 80 20 146/84 (104) 100 09/06/18 19:27 74 20 96 Nasal Cannula 2.0 28 09/06/18 19:19 Nasal Cannula 2.0 28 09/06/18 19:17 75 20 95 Nasal Cannula 2.0 09/06/18 19:16 95 Nasal Cannula 2.0 09/06/18 16:00 98 09/06/18 16:00 98.6 84 18 151/77 (101) 98 09/06/18 15:18 87 134/96 09/06/18 15:17 134/96 09/06/18 13:40 71 20 97 Nasal Cannula 2.0 28 09/06/18 13:34 72 20 95 Nasal Cannula 2.0 09/06/18 12:00 98.3 94 18 134/96 (109) 96 09/06/18 12:00 95 09/06/18 10:04 94 09/06/18 09:00 Nasal Cannula 2.0 Intake and Output 09/06/18 09/07/18 18:59 06:59 Intake Total 550 ml 815 ml Output Total 500 ml Balance 50 ml 815 ml Intake Free Water 120 ml IV Total 100 ml Tube Feeding 550 ml 595 ml Output Urine Total 500 ml # Voids 2 # Bowel Movements 1 Microbiology Date/Time Source Procedure Growth Status 09/05/18 01:00 Blood Blood Culture - Preliminary Staphylococcus Sp Coag Neg Resulted 09/05/18 00:45 Blood Blood Culture - Preliminary NO GROWTH AFTER 48 HOURS Resulted 09/05/18 00:30 Nasal Nares Influenza Types A,B Antigen (LEXI) - Final Complete 09/05/18 01:20 Urine,Clean Catch Urine Culture - Preliminary Gram Negative Mac Resulted 09/05/18 02:30 Rectum VRE Culture - Final NO VANCOMYCIN RESISTANT ENTEROCOCCUS ... Complete Laboratory Tests 09/07/18 04:15: Vancomycin Level Trough 15.1H Current Medications Medications (Trade) Dose Ordered Sig/Richard Route PRN Reason Start Time Stop Time Status Last Admin Dose Admin Acetaminophen (Tylenol) 650 mg Q6H PRN GT Mild Pain/Temp > 100.5 09/05/18 12:15 10/05/18 12:14 Apixaban (Eliquis) 5 mg BID GT 09/05/18 18:00 10/05/18 17:59 09/06/18 17:41 Atorvastatin Calcium (Lipitor) 40 mg BEDTIME GT 09/05/18 21:00 10/05/18 20:59 09/06/18 21:13 Digoxin (Lanoxin) 0.125 mg DAILY GT 09/05/18 12:30 10/05/18 12:29 09/06/18 10:04 Hydralazine HCl (Apresoline) 50 mg Q8HR ORAL 09/05/18 14:00 10/05/18 13:59 09/07/18 06:58 Ipratropium [place] (Atrovent) 500 mcg Q6HRT HHN 09/05/18 19:00 09/10/18 18:59 09/07/18 07:24 Lansoprazole (Prevacid) 30 mg DAILY GT 09/06/18 09:00 10/06/18 08:59 09/06/18 10:04 Levetiracetam (Keppra) 750 mg Q12HR NG 09/05/18 21:00 10/05/18 20:59 09/06/18 21:13 Levofloxacin 100 ml @ 100 mls/hr Q24H IVPB 09/05/18 21:00 09/12/18 20:59 09/06/18 21:15 Levothyroxine Sodium (Synthroid) 50 mcg DAILY@0630 GT 09/06/18 06:30 10/06/18 06:29 09/07/18 06:58 Magnesium Oxide (Mag-Ox 400mg) 250 mg DAILY GT 09/05/18 12:30 10/05/18 12:29 09/06/18 10:03 Quetiapine Fumarate (SEROquel) 12.5 mg Q4H PRN GT agitation 09/06/18 12:30 10/06/18 00:00 Vancomycin HCl (Vanco rx to dose) 1 ea DAILY PRN MISC Per rx protocol 09/05/18 15:45 10/05/18 15:44 Vancomycin/Sodium Chloride 250 ml @ 166.667 mls/hr Q12H IVPB 09/05/18 17:00 09/10/18 16:59 09/07/18 06:47 Verapamil HCl (Calan) 160 mg Q8HR GT 09/06/18 13:00 10/06/18 12:59 09/07/18 06:58 Marques Lau MD Sep 07, 2018 08:28
[2018-09-07] MEDS: Digoxin 0.125mg tab GT SCH (08:48)
[2018-09-07] MEDS: Magnesium Oxide 400mg tab GT SCH (08:48)
[2018-09-07] MEDS: Eliquis 2.5mg tablet GT SCH ×2 (08:49→18:23)
[2018-09-07] MEDS: levETIRAcetam 500mg/5ml Liquid NG SCH ×2 (08:49→21:14)
[2018-09-07 11:36] VITALS: BP 163/80
--- NOTE | 2018-09-07 12:10 | NUR ---
NURSE NOTES: Pt received from KYLE Carson alert and oriented x1 opens eyes to name only. No complaints or s/s of pain, SOB, or n/v. Gtube feed tolerated - HOB elevated, no s/s of abd pain or distention, 10 mL gastric residual. Bed in lowest position, call light within reach.
--- NOTE | 2018-09-07 15:24 | Internal Med Progress Note ---
Subjective Physician Name Joshua Ramsey Attending Physician Joshua Ramsey MD Current Medications Medications (Trade) Dose Ordered Sig/Richard Route PRN Reason Start Time Stop Time Status Last Admin Dose Admin Acetaminophen (Tylenol) 650 mg Q6H PRN GT Mild Pain/Temp > 100.5 09/05/18 12:15 10/05/18 12:14 Apixaban (Eliquis) 5 mg BID GT 09/05/18 18:00 10/05/18 17:59 09/07/18 08:49 Atorvastatin Calcium (Lipitor) 40 mg BEDTIME GT 09/05/18 21:00 10/05/18 20:59 09/06/18 21:13 Digoxin (Lanoxin) 0.125 mg DAILY GT 09/05/18 12:30 10/05/18 12:29 09/07/18 08:48 Hydralazine HCl (Apresoline) 50 mg Q8HR ORAL 09/05/18 14:00 10/05/18 13:59 09/07/18 13:02 Ipratropium [place] (Atrovent) 500 mcg Q6HRT HHN 09/05/18 19:00 09/10/18 18:59 09/07/18 13:10 Lansoprazole (Prevacid) 30 mg DAILY GT 09/06/18 09:00 10/06/18 08:59 09/07/18 08:48 Levetiracetam (Keppra) 750 mg Q12HR NG 09/05/18 21:00 10/05/18 20:59 09/07/18 08:49 Levofloxacin 100 ml @ 100 mls/hr Q24H IVPB 09/05/18 21:00 09/12/18 20:59 09/06/18 21:15 Levothyroxine Sodium (Synthroid) 50 mcg DAILY@0630 GT 09/06/18 06:30 10/06/18 06:29 09/07/18 06:58 Magnesium Oxide (Mag-Ox 400mg) 250 mg DAILY GT 09/05/18 12:30 10/05/18 12:29 09/07/18 08:48 Quetiapine Fumarate (SEROquel) 12.5 mg Q4H PRN GT agitation 09/06/18 12:30 10/06/18 00:00 Vancomycin HCl (Vanco rx to dose) 1 ea DAILY PRN MISC Per rx protocol 09/05/18 15:45 10/05/18 15:44 Vancomycin/Sodium Chloride 250 ml @ 166.667 mls/hr Q12H IVPB 09/05/18 17:00 09/10/18 16:59 09/07/18 06:47 Verapamil HCl (Calan) 160 mg Q8HR GT 09/06/18 13:00 10/06/18 12:59 09/07/18 13:03 Allergies: Coded Allergies: CHLORDIAZEPOXIDE (Verified Allergy, Mild, 01/05/10) DIAZEPAM (Verified Allergy, Mild, 01/05/10) HYDROCHLOROTHIAZIDE (Verified Allergy, Mild, 01/05/10) PENICILLIN G (Verified Allergy, Mild, HIVES, 01/05/10) HYDROMORPHONE (Unverified Allergy, Unknown, 02/22/17) MORPHINE (Unverified Allergy, Unknown, 02/22/17) PENICILLINS (Unverified Allergy, Unknown, 02/22/17) Uncoded Allergies: HYDROCHLOROTHIAZIDE (Allergy, Unknown, 02/22/17) Subjective awake, responsive, open eyes, not verbal Objective Last Vital Signs Date Time Temp Pulse Resp B/P (MAP) Pulse Ox O2 Delivery O2 Flow Rate FiO2 09/07/18 13:41 88 18 98 Nasal Cannula 2.0 28 09/07/18 13:03 163/80 09/07/18 11:36 98.0 Laboratory Tests Test 09/07/18 04:15 Vancomycin Level Trough 15.1 ug/mL (5.0-12.0) H Microbiology Date/Time Source Procedure Growth Status 09/05/18 01:00 Blood Blood Culture - Preliminary Staphylococcus Sp Coag Neg Resulted 09/05/18 00:45 Blood Blood Culture - Preliminary NO GROWTH AFTER 48 HOURS Resulted 09/05/18 00:30 Nasal Nares Influenza Types A,B Antigen (LEXI) - Final Complete 09/05/18 01:20 Urine,Clean Catch Urine Culture - Final Escherichia Coli - Esbl Escherichia Coli Complete 09/05/18 02:30 Rectum VRE Culture - Final NO VANCOMYCIN RESISTANT ENTEROCOCCUS ... Complete Intake and Output 09/06/18 09/07/18 19:00 07:00 Intake Total 600 ml 765 ml Output Total 500 ml Balance 100 ml 765 ml Intake Free Water 120 ml IV Total 100 ml Tube Feeding 600 ml 545 ml Output Urine Total 500 ml # Voids 2 # Bowel Movements 1 Objective General: No acute distress, awake and more responsive, open eyes, not verbal. HEENT: NCAT, sclera anicteric, PERRL, Neck: Supple, no significant jugular venous distention, Lungs: Fair inspiratory effort, decrease air on bases no Wheeze. Heart: Regular rate and rhythm, normal S1/S2, no murmurs. Abdomen: soft, nontender, nondistended. Normoactive bowel sounds.PEG Extremities: No Cyanosis , clubbing or edema. Neuro: Very limited secondary to the patient's status. Contraction of upper extremities as well as lower extremity functional quadriplegia as well as weakness on the left side greater than right side. Skin: warm, no rashes. Assessment/Plan Assessment/Plan ASSESSMENT: 1. Sepsis secondary to pneumonia. 2. Atrial fibrillation with rapid ventricular rate. 3. Lactic acidosis. 4. Functional quadriplegia. 5. E. Coli ESBL Urinary tract infection. 6. Hypothyroidism. 7. Chronic iron deficiency anemia. 8. Hypertension. 9. Sick sinus syndrome/pacemaker. 10. Basal ganglia cerebrovascular accident with hemiparesis. 11. Seizure disorder. 12. Morbid obesity. 13. Dysphagia status post percutaneous endoscopic gastrostomy. PLAN: On monitored unit. Full Code. Broad-spectrum antibiotics: DC cefepime , vancomycin, Start Imipenem Dr. Wyatt from Cardiology Electrophysiology Dr. Marques Lau from Pulmonary Critical monitor Labs and cultures. Joshua Ramsey M.D. Joshua Ramsey MD Sep 07, 2018 15:23
[2018-09-07 16:00] VITALS: BP 118/80
--- NOTE | 2018-09-07 18:18 | Cardiology Progress Note ---
Assessment/Plan Status: stable Assessment/Plan ASSESSMENT AND PLAN: 1. Atrial fibrillation with rapid ventricular response. Resume the patient's verapamil 240 mg b.i.d. and discontinue amlodipine. The patient is also on digoxin and is on Eliquis 5 mg b.i.d. for anticoagulation purposes. 2. Status post [employer] pacemaker in 2013. The pacemaker may need to be interrogated. 3. Hypothyroidism, on Synthroid. 4. Dementia. 5. Dysphagia, status post G-tube. 6. Hyperlipidemia, on Lipitor. 7. Essential hypertension. Continue maximizing her antiarrhythmic therapy with verapamil as the patient has atrial fibrillation with rapid ventricular response. 8. Outpatient stress test Subjective Cardiovascular: Reports: no symptoms Respiratory: Reports: no symptoms Gastrointestinal/Abdominal: Reports: no symptoms Genitourinary: Reports: no symptoms Subjective COVERAGE FOR TOLUE No acute events, 5 beats vtach, LVEF on echo 55% Objective Last 24 Hour Vital Signs Date Time Temp Pulse Resp B/P (MAP) Pulse Ox O2 Delivery O2 Flow Rate FiO2 09/07/18 16:00 98.4 72 20 118/80 (93) 95 09/07/18 16:00 72 09/07/18 13:41 88 18 98 Nasal Cannula 2.0 28 09/07/18 13:10 81 18 96 Nasal Cannula 2.0 28 09/07/18 13:03 72 163/80 09/07/18 13:02 163/80 09/07/18 12:00 70 09/07/18 11:36 98.0 72 20 163/80 (107) 96 09/07/18 09:00 Nasal Cannula 2.0 Nasal Cannula 2.0 09/07/18 08:48 72 09/07/18 08:03 98.2 72 20 140/95 (110) 98 09/07/18 08:00 70 09/07/18 07:35 79 18 99 Nasal Cannula 2.0 28 09/07/18 07:27 97 Nasal Cannula 2.0 28 09/07/18 07:27 Nasal Cannula 2.0 28 09/07/18 07:26 77 18 97 Nasal Cannula 2.0 28 09/07/18 06:58 71 146/92 09/07/18 06:58 146/92 09/07/18 04:00 70 09/07/18 04:00 98.2 71 20 122/91 (101) 98 09/07/18 01:24 69 20 98 Nasal Cannula 2.0 28 09/07/18 01:13 90 20 96 Nasal Cannula 2.0 09/07/18 00:00 98.1 80 20 134/53 (80) 95 09/07/18 00:00 71 09/06/18 21:14 166/70 09/06/18 21:13 90 166/70 09/06/18 21:00 Nasal Cannula 2.0 09/06/18 20:00 67 09/06/18 20:00 97.9 80 20 146/84 (104) 100 09/06/18 19:27 74 20 96 Nasal Cannula 2.0 28 09/06/18 19:19 Nasal Cannula 2.0 28 09/06/18 19:17 75 20 95 Nasal Cannula 2.0 09/06/18 19:16 95 Nasal Cannula 2.0 General Appearance: no apparent distress, alert EENT: PERRL/EOMI, normal ENT inspection, TMs normal Neck: non-tender, normal alignment, supple, normal inspection, no JVD Rhythm: NSR Cardiovascular: normal peripheral pulses, normal rate, regular rhythm Respiratory/Chest: chest wall non-tender, lungs clear, normal breath sounds Abdomen: normal bowel sounds, non tender, soft, no organomegaly Neurologic: 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 II-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 grossly normal, no motor/sensory deficits Intake and Output 09/06/18 09/07/18 19:00 07:00 Intake Total 600 ml 765 ml Output Total 500 ml Balance 100 ml 765 ml Intake Free Water 120 ml IV Total 100 ml Tube Feeding 600 ml 545 ml Output Urine Total 500 ml # Voids 2 # Bowel Movements 1 Laboratory Tests Test 09/07/18 04:15 Vancomycin Level Trough 15.1 ug/mL (5.0-12.0) H Microbiology Date/Time Source Procedure Growth Status 09/05/18 01:00 Blood Blood Culture - Preliminary Staphylococcus Sp Coag Neg Resulted 09/05/18 00:45 Blood Blood Culture - Preliminary NO GROWTH AFTER 48 HOURS Resulted 09/05/18 00:30 Nasal Nares Influenza Types A,B Antigen (LEXI) - Final Complete 09/05/18 01:20 Urine,Clean Catch Urine Culture - Final Escherichia Coli - Esbl Escherichia Coli Complete 09/05/18 02:30 Rectum VRE Culture - Final NO VANCOMYCIN RESISTANT ENTEROCOCCUS ... Complete FilsoMarques kilgore MD Sep 07, 2018 18:18
[2018-09-07] MEDS: Meropenem 1 GM in NS 55 ML IVPB SCH (18:22)
--- NOTE | 2018-09-07 19:08 | Pulmonology Progress Note ---
Assessment/Plan Assessment/Plan Pulmonary Progress Note Patient seen 09/06/2018 Chief Complaint: Generalized Weakness, coughing HPI Patient presents from nursing facility with reports of being'sick' This is what the paramedics reported Patient herself appears to have had a previous large CVA Is nonverbal Noted to have Pneumonia on CXR History of present illness is significantly limited There was a report that the patient had been just recently transferred to the nursing facility from another hospitalization Allergies: Coded Allergies: CHLORDIAZEPOXIDE (Verified Allergy, Mild, 01/05/10) DIAZEPAM (Verified Allergy, Mild, 01/05/10) HYDROCHLOROTHIAZIDE (Verified Allergy, Mild, 01/05/10) PENICILLIN G (Verified Allergy, Mild, HIVES, 01/05/10) HYDROMORPHONE (Unverified Allergy, Unknown, 02/22/17) MORPHINE (Unverified Allergy, Unknown, 02/22/17) PENICILLINS (Unverified Allergy, Unknown, 02/22/17) Uncoded Allergies: HYDROCHLOROTHIAZIDE (Allergy, Unknown, 02/22/17) Patient History Limited by: medical condition Past Medical History: see triage record Pertinent Family History: unable to obtain Reviewed Nursing Documentation: PMH: Agreed; PSxH: Agreed Nursing Documentation-PMH Hx Cardiac Problems: Yes - CHF, paroxysmal a-fib, hypothyroidism, chronic iron deficiency anemia Hx Hypertension: Yes Hx Pacemaker: Yes History Of Psychiatric Problem: Yes - Depression degenerative disease of basal ganglia Hx Neurological Problems: Yes - Muscle weakness, ankle contracture, quadriplegia, metabolic encephalopathy, Hx Cerebrovascular Accident: Yes Hx Seizures: Yes Review of Systems All Other Systems: limited - Other than the ones mentioned in the history of present illness all others are reviewed however they do stay limited due to the patient's mental status Physical Exam Vital Signs Noted Sp02 EP Interpretation: reviewed, normal General Appearance: mild distress Head: atraumatic Eyes: bilateral eye PERRL ENT: dry mucus membranes Neck: supple Respiratory: crackles, other - Mildly tachypneic Cardiovascular #1: irregularly irregular Gastrointestinal: non tender, soft Musculoskeletal: other - Patient chronically debilitated, left hand is extended , does not follow commands Neurologic: responsive - To physical stimuli Skin: pallor Lymphatic: no adenopathy Impression: Primary Impression: Pneumonia, Sepsis Atrial fibrillation with RVR UTI (urinary tract infection) CHF, paroxysmal a-fib Hypothyroidism Chronic iron deficiency anemia HTN PPM Previous CVA, basal ganglia disease Seizure History Hx Hypertension: Yes Hx Pacemaker: Yes History Of Psychiatric Problem: Yes - Depression degenerative disease of basal ganglia Hx Neurological Problems: Yes - Muscle weakness, ankle contracture, quadriplegia, metabolic encephalopathy, Hx Cerebrovascular Accident: Yes Hx Seizures: Yes ER Course Patient is a fairly complex patient with multiple differential to consideration including but not limited to cardiac cardiopulmonary and vascular emergencies Patient required IV hydration and antibiotics Sepsis reexamination Time: Reevaluation VS refer to nursing note cvs: RRR respiratory: improved respiration peripheral pulses: 2+radial cap refill:<2 seconds skin exam: warm, dry, not mottled Patient continues to be in critical condition and admitted for further care Labs Test 09/05/18 01:00 09/05/18 01:20 09/05/18 03:00 White Blood Count 15.1 K/UL (4.8-10.8) Red Blood Count 5.40 M/UL (4.20-5.40) Hemoglobin 16.4 G/DL (12.0-16.0) Hematocrit 51.4 % (37.0-47.0) Mean Corpuscular Volume 95 FL (80-99) Mean Corpuscular Hemoglobin 30.4 PG (27.0-31.0) Mean Corpuscular Hemoglobin Concent 31.9 G/DL (32.0-36.0) Red Cell Distribution Width 14.4 % (11.6-14.8) Platelet Count 292 K/UL (150-450) Mean Platelet Volume 6.0 FL (6.5-10.1) Neutrophils (%) (Auto) % (45.0-75.0) Lymphocytes (%) (Auto) % (20.0-45.0) Monocytes (%) (Auto) % (1.0-10.0) Eosinophils (%) (Auto) % (0.0-3.0) Basophils (%) (Auto) % (0.0-2.0) Sodium Level 140 MMOL/L (136-145) Potassium Level 3.8 MMOL/L (3.5-5.1) Chloride Level 99 MMOL/L (98-107) Carbon Dioxide Level 31 MMOL/L (21-32) Anion Gap 10 mmol/L (5-15) Blood Urea Nitrogen 18 mg/dL (7-18) Creatinine 0.8 MG/DL (0.55-1.30) Estimat Glomerular Filtration Rate mL/min (>60) Glucose Level 138 MG/DL (74-106) Lactic Acid Level 3.50 mmol/L (0.4-2.0) 1.90 mmol/L (0.66-2.22) Calcium Level 9.7 MG/DL (8.5-10.1) Total Bilirubin 0.9 MG/DL (0.2-1.0) Aspartate Amino Transf (AST/SGOT) 24 U/L (15-37) Alanine Aminotransferase (ALT/SGPT) 19 U/L (12-78) Alkaline Phosphatase 102 U/L (46-116) Total Creatine Kinase 82 U/L (26-308) Creatine Kinase MB 1.5 NG/ML (0.0-3.6) Creatine Kinase MB Relative Index 1.8 Troponin I 0.033 ng/mL (0.000-0.056) Pro-B-Type Natriuretic Peptide 640 pg/mL (0-125) Total Protein 9.1 G/DL (6.4-8.2) Albumin 3.4 G/DL (3.4-5.0) Globulin 5.7 g/dL Albumin/Globulin Ratio 0.6 (1.0-2.7) Lipase 187 U/L (73-393) Urine Color Yellow Urine Appearance Cloudy Urine pH 7 (4.5-8.0) Urine Specific [place] 1.010 (1.005-1.035) Urine Protein 3+ (NEGATIVE) Urine Glucose (UA) Negative (NEGATIVE) Urine Ketones Negative (NEGATIVE) Urine Blood 3+ (NEGATIVE) Urine Nitrite Positive (NEGATIVE) Urine Bilirubin Negative (NEGATIVE) Urine Urobilinogen 1 MG/DL (0.0-1.0) Urine Leukocyte Esterase 3+ (NEGATIVE) Urine RBC 10-15 /HPF (0 - 2) Urine WBC 60-80 /HPF (0 - 2) Urine Squamous Epithelial Cells Moderate /LPF (NONE/OCC) Urine Bacteria Many /HPF (NONE) EKG Diagnostic Results Rate: tachycardiac Rhythm: other - afib ST Segments: other - Nonspecific ST changes Rhythm Strip Diag. Results EP Interpretation: yes Rate: 80 Rhythm: no PVC's, no ectopy, other - Atrial fibrillation Chest X-Ray Diagnostic Results Chest X-Ray Diagnostic Results : Chest X-Ray Ordered: Yes # of Views/Limited/Complete: 1 View Indication: Chest Pain EP Interpretation: Yes Interpretation: no effusion, no pneumothorax, other - Right-sided marking concerning for infiltrated Impression: Other - Right-sided marking possible pneumonia Subjective ROS Limited/Unobtainable: No Allergies: Coded Allergies: CHLORDIAZEPOXIDE (Verified Allergy, Mild, 01/05/10) DIAZEPAM (Verified Allergy, Mild, 01/05/10) HYDROCHLOROTHIAZIDE (Verified Allergy, Mild, 01/05/10) PENICILLIN G (Verified Allergy, Mild, HIVES, 01/05/10) HYDROMORPHONE (Unverified Allergy, Unknown, 02/22/17) MORPHINE (Unverified Allergy, Unknown, 02/22/17) PENICILLINS (Unverified Allergy, Unknown, 02/22/17) Uncoded Allergies: HYDROCHLOROTHIAZIDE (Allergy, Unknown, 02/22/17) Objective Last 24 Hour Vital Signs Date Time Temp Pulse Resp B/P (MAP) Pulse Ox O2 Delivery O2 Flow Rate FiO2 09/07/18 16:00 98.4 72 20 118/80 (93) 95 09/07/18 16:00 72 09/07/18 13:41 88 18 98 Nasal Cannula 2.0 28 09/07/18 13:10 81 18 96 Nasal Cannula 2.0 28 09/07/18 13:03 72 163/80 09/07/18 13:02 163/80 09/07/18 12:00 70 09/07/18 11:36 98.0 72 20 163/80 (107) 96 09/07/18 09:00 Nasal Cannula 2.0 Nasal Cannula 2.0 09/07/18 08:48 72 09/07/18 08:03 98.2 72 20 140/95 (110) 98 09/07/18 08:00 70 09/07/18 07:35 79 18 99 Nasal Cannula 2.0 28 09/07/18 07:27 97 Nasal Cannula 2.0 28 09/07/18 07:27 Nasal Cannula 2.0 28 09/07/18 07:26 77 18 97 Nasal Cannula 2.0 28 09/07/18 06:58 71 146/92 09/07/18 06:58 146/92 09/07/18 04:00 70 09/07/18 04:00 98.2 71 20 122/91 (101) 98 12/23/18 01:24 69 20 98 Nasal Cannula 2.0 28 09/07/18 01:13 90 20 96 Nasal Cannula 2.0 09/07/18 00:00 98.1 80 20 134/53 (80) 95 09/07/18 00:00 71 09/06/18 21:14 166/70 18 21:13 90 166/70 09/06/18 21:00 Nasal Cannula 2.0 09/06/18 20:00 67 09/06/18 20:00 97.9 80 20 146/84 (104) 100 09/06/18 19:27 74 20 96 Nasal Cannula 2.0 28 09/06/18 19:19 Nasal Cannula 2.0 28 09/06/18 19:17 75 20 95 Nasal Cannula 2.0 09/06/18 19:16 95 Nasal Cannula 2.0 Intake and Output 09/06/18 09/07/18 19:00 07:00 Intake Total 600 ml 765 ml Output Total 500 ml Balance 100 ml 765 ml Intake Free Water 120 ml IV Total 100 ml Tube Feeding 600 ml 545 ml Output Urine Total 500 ml # Voids 2 # Bowel Movements 1 Microbiology Date/Time Source Procedure Growth Status 09/05/18 01:00 Blood Blood Culture - Preliminary Staphylococcus Sp Coag Neg Resulted 09/05/18 00:45 Blood Blood Culture - Preliminary NO GROWTH AFTER 48 HOURS Resulted 09/05/18 00:30 Nasal Nares Influenza Types A,B Antigen (LEXI) - Final Complete 09/05/18 01:20 Urine,Clean Catch Urine Culture - Final Escherichia Coli - Esbl Escherichia Coli Complete 09/05/18 02:30 Rectum VRE Culture - Final NO VANCOMYCIN RESISTANT ENTEROCOCCUS ... Complete Laboratory Tests 09/07/18 04:15: Vancomycin Level Trough 15.1H Current Medications Medications (Trade) Dose Ordered Sig/Richard Route PRN Reason Start Time Stop Time Status Last Admin Dose Admin Acetaminophen (Tylenol) 650 mg Q6H PRN GT Mild Pain/Temp > 100.5 09/05/18 12:15 10/05/18 12:14 Apixaban (Eliquis) 5 mg BID GT 09/05/18 18:00 10/05/18 17:59 09/07/18 18:23 Atorvastatin Calcium (Lipitor) 40 mg BEDTIME GT 09/05/18 21:00 10/05/18 20:59 09/06/18 21:13 Digoxin (Lanoxin) 0.125 mg DAILY GT 09/05/18 12:30 10/05/18 12:29 09/07/18 08:48 Hydralazine HCl (Apresoline) 50 mg Q8HR ORAL 09/05/18 14:00 10/05/18 13:59 09/07/18 13:02 Ipratropium [place] (Atrovent) 500 mcg Q6HRT HHN 09/05/18 19:00 09/10/18 18:59 09/07/18 13:10 Lansoprazole (Prevacid) 30 mg DAILY GT 09/06/18 09:00 10/06/18 08:59 09/07/18 08:48 Levetiracetam (Keppra) 750 mg Q12HR NG 09/05/18 21:00 10/05/18 20:59 09/07/18 08:49 Levothyroxine Sodium (Synthroid) 50 mcg DAILY@0630 GT 09/06/18 06:30 10/06/18 06:29 09/07/18 06:58 Magnesium Oxide (Mag-Ox 400mg) 250 mg DAILY GT 09/05/18 12:30 10/05/18 12:29 09/07/18 08:48 Meropenem 1 gm/ Sodium Chloride 55 ml @ 110 mls/hr Q12H IVPB 09/07/18 17:00 09/12/18 16:59 09/07/18 18:22 Quetiapine Fumarate (SEROquel) 12.5 mg Q4H PRN GT agitation 09/06/18 12:30 10/06/18 00:00 Vancomycin HCl (Vanco rx to dose) 1 ea DAILY PRN MISC Per rx protocol 09/05/18 15:45 10/05/18 15:44 Vancomycin/Sodium Chloride 250 ml @ 166.667 mls/hr Q12H IVPB 09/05/18 17:00 09/10/18 16:59 09/07/18 18:23 Verapamil HCl (Calan) 160 mg Q8HR GT 09/06/18 13:00 10/06/18 12:59 09/07/18 13:03 Marques Lau MD Sep 07, 2018 19:08
--- NOTE | 2018-09-07 19:55 | NUR ---
HAND-OFF: Report given to KYLE Bautista.
[2018-09-07 20:00] VITALS: BP 189/92
--- NOTE | 2018-09-07 20:00 | NUR ---
NURSE NOTES: Received report from KYLE Lucas. Patient is alert and oriented x1 opens eyes to name only. No s/s of pain, SOB, or signs of discomforts. Gtube feed tolerated. Gtube stoma patent and intact with no signs of infection. - HOB elevated, no s/s of abd pain or distention, 0 gastric residual. Bed in lowest position, call light within reach. Will continue plan of care
[2018-09-07] MEDS: Atorvastatin 20mg tab GT SCH (21:12)
--- NOTE | 2018-09-07 22:15 | General Progress Note ---
Assessment/Plan Problem List: (1) Dementia ICD Codes: F03.90 - Unspecified dementia without behavioral disturbance SNOMED: 71647056 (2) encephalopathy with metabolic factor Assessment/Plan dc valium seroquel prn admitting orders were placed Subjective Neurologic/Psychiatric: Reports: anxiety, depressed Allergies: Coded Allergies: CHLORDIAZEPOXIDE (Verified Allergy, Mild, 01/05/10) DIAZEPAM (Verified Allergy, Mild, 01/05/10) HYDROCHLOROTHIAZIDE (Verified Allergy, Mild, 01/05/10) PENICILLIN G (Verified Allergy, Mild, HIVES, 01/05/10) HYDROMORPHONE (Unverified Allergy, Unknown, 02/22/17) MORPHINE (Unverified Allergy, Unknown, 02/22/17) PENICILLINS (Unverified Allergy, Unknown, 02/22/17) Uncoded Allergies: HYDROCHLOROTHIAZIDE (Allergy, Unknown, 02/22/17) Objective Last 24 Hour Vital Signs Date Time Temp Pulse Resp B/P (MAP) Pulse Ox O2 Delivery O2 Flow Rate FiO2 09/07/18 21:13 71 189/92 09/07/18 21:13 189/92 09/07/18 20:22 70 20 98 Nasal Cannula 2.0 28 09/07/18 20:13 70 20 100 Nasal Cannula 2.0 28 09/07/18 20:13 Nasal Cannula 2.0 28 09/07/18 20:12 100 Nasal Cannula 2.0 28 09/07/18 16:00 98.4 72 20 118/80 (93) 95 09/07/18 16:00 72 09/07/18 13:41 88 18 98 Nasal Cannula 2.0 28 09/07/18 13:10 81 18 96 Nasal Cannula 2.0 28 09/07/18 13:03 72 163/80 09/07/18 13:02 163/80 09/07/18 12:00 70 09/07/18 11:36 98.0 72 20 163/80 (107) 96 09/07/18 09:00 Nasal Cannula 2.0 Nasal Cannula 2.0 09/07/18 08:48 72 09/07/18 08:03 98.2 72 20 140/95 (110) 98 09/07/18 08:00 70 09/07/18 07:35 79 18 99 Nasal Cannula 2.0 28 09/07/18 07:27 97 Nasal Cannula 2.0 28 09/07/18 07:27 Nasal Cannula 2.0 09/07/18 07:26 77 18 97 Nasal Cannula 2.0 09/07/18 06:58 71 146/92 09/07/18 06:58 146/92 09/07/18 04:00 70 09/07/18 04:00 98.2 71 20 122/91 (101) 98 09/07/18 01:24 69 20 98 Nasal Cannula 2.0 09/07/18 01:13 90 20 96 Nasal Cannula 2.0 09/07/18 00:00 98.1 80 20 134/53 (80) 95 09/07/18 00:00 71 Intake and Output 09/06/18 09/07/18 19:00 07:00 Intake Total 600 ml 765 ml Output Total 500 ml Balance 100 ml 765 ml Intake Free Water 120 ml IV Total 100 ml Tube Feeding 600 ml 545 ml Output Urine Total 500 ml # Voids 2 # Bowel Movements 1 Laboratory Tests 09/07/18 04:15: Vancomycin Level Trough 15.1H Height (Feet): 5 Height (Inches): 5.00 Weight (Pounds): 230 General Appearance: alert, confused, agitated Flores Tavares MD Sep 07, 2018 22:15
[2018-09-08] VITALS: BP 157/82
[2018-09-08] MEDS: Ipratropium 0.02% Inh Soln 2.5ml UD HHN SCH ×4 (01:27→21:36)
[2018-09-08 04:00] VITALS: BP 171/80
[2018-09-08] MEDS: Vancomycin 750mg/NS 250ml IVPB SCH (05:20)
[2018-09-08] MEDS: Meropenem 1 GM in NS 55 ML IVPB SCH ×2 (05:20→17:57)
[2018-09-08] MEDS: HydrALAZINE 50mg tab ORAL SCH ×3 (06:11→21:52)
[2018-09-08] MEDS: Verapamil 80mg tab GT SCH ×3 (06:11→21:51)
--- NOTE | 2018-09-08 07:08 | NUR ---
HAND-OFF: Report given to KYLE Carson. Patient in stable condition. No seizure activity throughout shift.
[2018-09-08 07:11] LABS: BASOPHILS % (AUTO) 0.5 % (0.0-2.0); EOSINOPHILS % (AUTO) 2.2 % (0.0-3.0); HEMATOCRIT 36.5 % (37.0-47.0); HEMOGLOBIN 11.8 G/DL (12.0-16.0); LYMPHOCYTES % (AUTO) 19.5 % (20.0-45.0); MEAN CORPUSCULAR VOLUME 95 FL (80-99); MONOCYTES % (AUTO) 7.5 % (1.0-10.0); NEUTROPHILS % (AUTO) 70.3 % (45.0-75.0); PLATELET COUNT 256 K/UL (150-450); RED BLOOD COUNT 3.86 M/UL (4.20-5.40); RED CELL DISTRIBUTION WIDTH 14.1 % (11.6-14.8); WHITE BLOOD COUNT 8.6 K/UL (4.8-10.8)
[2018-09-08 07:25] LABS: ALANINE AMINOTRANSFERASE 13 U/L (12-78); ALBUMIN 2.3 G/DL (3.4-5.0); ALBUMIN/GLOBULIN RATIO 0.5 (1.0-2.7); ALKALINE PHOSPHATASE 66 U/L (46-116); ANION GAP 8 mmol/L (5-15); ASPARTATE AMINO TRANSFERASE 22 U/L (15-37); BILIRUBIN,TOTAL 0.3 MG/DL (0.2-1.0); BLOOD UREA NITROGEN 16 mg/dL (7-18); CALCIUM 8.5 MG/DL (8.5-10.1); CARBON DIOXIDE 29 MMOL/L (21-32); CHLORIDE 107 MMOL/L (98-107); CREATININE 0.8 MG/DL (0.55-1.30); PHOSPHORUS 3.3 MG/DL (2.5-4.9); POTASSIUM 3.4 MMOL/L (3.5-5.1); SODIUM 144 MMOL/L (136-145)
[2018-09-08 08:00] VITALS: BP 145/68
[2018-09-08] MEDS: Eliquis 2.5mg tablet GT SCH ×2 (08:19→21:51)
[2018-09-08] MEDS: Magnesium Oxide 400mg tab GT SCH (08:20)
[2018-09-08] MEDS: levETIRAcetam 500mg/5ml Liquid NG SCH ×2 (08:20→21:52)
[2018-09-08] MEDS: Digoxin 0.125mg tab GT SCH (08:20)
[2018-09-08] MEDS ORDERED: NS 275ml ONE (10:35)
[2018-09-08] MEDS ORDERED: Sterile Water Irrig 1000ml IRRIG ONE (10:35)
[2018-09-08] MEDS ORDERED: Tubing IV Secondary IV ONE (10:35)
[2018-09-08 12:00] VITALS: BP 140/82
--- NOTE | 2018-09-08 12:29 | NUR ---
RD ASSESSMENT & RECOMMENDATIONS SEE CARE ACTIVITY FOR COMPLETE ASSESSMENT DAILY ESTIMATED NEEDS: Needs based on Wound/ 75.6kg abw 24-30 kcals/kg 5874-1824 total kcals 1.25-1.7 g protein/kg 95-129 g total protein 25-30 mL/kg 1954-3603 total fluid mLs NUTRITION DIAGNOSIS: * Swallowing difficulty R/T dysphagia, h/o CVA as evidenced by pt is PEG dep. * Increased kcal/prot needs R/T wound healing as evidenced by admitted w/ lt hip stage 2 wound. CURRENT TF:Glucerna 1.2 @ 55ml/hr x 22 hrs ENTERAL NUTRITION RECOMMENDATIONS: Glucerna 1.5 @ 55ml/hr x 22 hrs (hold 1 hr before & after Synthroid med) to provide 1210ml, 1815kcal, 100g prot, 974ml free water * Rec TF CHANGE to Glucerna 1.5 for increased kcal/prot needs, carb control, lower volume * Initiate Glucerna 1.5 @ 25ml/hr x 6 hrs, adavnce 10ml q 4-6 hrs as tolerated to goal rate * Hold 1 hour before and after Synthroid med * HOB over 30 degrees/ water flush per MD ADDITIONAL RECOMMENDATIONS: * Calibrated bedscale wt for accurate CBW * WOUND EVALUATION FOR LT HIP WOUND * Wound care: add Ozzy 1pkt BID * Monitor lytes, replete as needed (K 3.4) * Consider accucheck w/ SSI- h/o DM, PEG dep
--- NOTE | 2018-09-08 14:39 | Internal Med Progress Note ---
Subjective Physician Name Joshua Ramsey Attending Physician Joshua Ramsey MD Current Medications Medications (Trade) Dose Ordered Sig/Richard Route PRN Reason Start Time Stop Time Status Last Admin Dose Admin Acetaminophen (Tylenol) 650 mg Q6H PRN GT Mild Pain/Temp > 100.5 09/05/18 12:15 10/05/18 12:14 Apixaban (Eliquis) 5 mg BID GT 09/05/18 18:00 10/05/18 17:59 09/08/18 08:19 Atorvastatin Calcium (Lipitor) 40 mg BEDTIME GT 09/05/18 21:00 10/05/18 20:59 09/07/18 21:12 Digoxin (Lanoxin) 0.125 mg DAILY GT 09/05/18 12:30 10/05/18 12:29 09/08/18 08:20 Hydralazine HCl (Apresoline) 50 mg Q8HR ORAL 09/05/18 14:00 10/05/18 13:59 09/08/18 06:11 Ipratropium [place] (Atrovent) 500 mcg Q6HRT HHN 09/05/18 19:00 09/10/18 18:59 09/08/18 07:28 Lansoprazole (Prevacid) 30 mg DAILY GT 09/06/18 09:00 10/06/18 08:59 09/08/18 08:20 Levetiracetam (Keppra) 750 mg Q12HR NG 09/05/18 21:00 10/05/18 20:59 09/08/18 08:20 Levothyroxine Sodium (Synthroid) 50 mcg DAILY@0630 GT 09/06/18 06:30 10/06/18 06:29 09/08/18 06:11 Magnesium Oxide (Mag-Ox 400mg) 250 mg DAILY GT 09/05/18 12:30 10/05/18 12:29 09/08/18 08:20 Meropenem 1 gm/ Sodium Chloride 55 ml @ 110 mls/hr Q12H IVPB 09/07/18 17:00 09/12/18 16:59 09/08/18 05:20 Quetiapine Fumarate (SEROquel) 12.5 mg Q4H PRN GT agitation 09/06/18 12:30 10/06/18 00:00 Vancomycin HCl (Vanco rx to dose) 1 ea DAILY PRN MISC Per rx protocol 09/05/18 15:45 10/05/18 15:44 Vancomycin/Sodium Chloride 250 ml @ 166.667 mls/hr Q12H IVPB 09/05/18 17:00 09/10/18 16:59 09/08/18 05:20 Verapamil HCl (Calan) 160 mg Q8HR GT 09/06/18 13:00 10/06/18 12:59 09/08/18 06:11 Allergies: Coded Allergies: CHLORDIAZEPOXIDE (Verified Allergy, Mild, 01/05/10) DIAZEPAM (Verified Allergy, Mild, 01/05/10) HYDROCHLOROTHIAZIDE (Verified Allergy, Mild, 01/05/10) PENICILLIN G (Verified Allergy, Mild, HIVES, 01/05/10) HYDROMORPHONE (Unverified Allergy, Unknown, 02/22/17) MORPHINE (Unverified Allergy, Unknown, 02/22/17) PENICILLINS (Unverified Allergy, Unknown, 02/22/17) Uncoded Allergies: HYDROCHLOROTHIAZIDE (Allergy, Unknown, 02/22/17) Subjective awake, responsive, open eyes, not verbal Objective Last Vital Signs Date Time Temp Pulse Resp B/P (MAP) Pulse Ox O2 Delivery O2 Flow Rate FiO2 09/08/18 12:00 97.2 84 18 140/82 (101) 97 09/08/18 09:04 Nasal Cannula 2.0 Nasal Cannula 2.0 09/08/18 07:43 28 Laboratory Tests Test 09/08/18 06:05 White Blood Count 8.6 K/UL (4.8-10.8) Red Blood Count 3.86 M/UL (4.20-5.40) L Hemoglobin 11.8 G/DL (12.0-16.0) L Hematocrit 36.5 % (37.0-47.0) L Mean Corpuscular Volume 95 FL (80-99) Mean Corpuscular Hemoglobin 30.6 PG (27.0-31.0) Mean Corpuscular Hemoglobin Concent 32.3 G/DL (32.0-36.0) Red Cell Distribution Width 14.1 % (11.6-14.8) Platelet Count 256 K/UL (150-450) Mean Platelet Volume 6.0 FL (6.5-10.1) L Neutrophils (%) (Auto) 70.3 % (45.0-75.0) Lymphocytes (%) (Auto) 19.5 % (20.0-45.0) L Monocytes (%) (Auto) 7.5 % (1.0-10.0) Eosinophils (%) (Auto) 2.2 % (0.0-3.0) Basophils (%) (Auto) 0.5 % (0.0-2.0) Sodium Level 144 MMOL/L (136-145) Potassium Level 3.4 MMOL/L (3.5-5.1) L Chloride Level 107 MMOL/L (98-107) Carbon Dioxide Level 29 MMOL/L (21-32) Anion Gap 8 mmol/L (5-15) Blood Urea Nitrogen 16 mg/dL (7-18) Creatinine 0.8 MG/DL (0.55-1.30) Estimat Glomerular Filtration Rate mL/min (>60) Glucose Level 115 MG/DL (74-106) H Calcium Level 8.5 MG/DL (8.5-10.1) Phosphorus Level 3.3 MG/DL (2.5-4.9) Magnesium Level 1.8 MG/DL (1.8-2.4) Total Bilirubin 0.3 MG/DL (0.2-1.0) Aspartate Amino Transf (AST/SGOT) 22 U/L (15-37) Alanine Aminotransferase (ALT/SGPT) 13 U/L (12-78) Alkaline Phosphatase 66 U/L (46-116) Total Protein 6.9 G/DL (6.4-8.2) Albumin 2.3 G/DL (3.4-5.0) L Globulin 4.6 g/dL Albumin/Globulin Ratio 0.5 (1.0-2.7) L Intake and Output 09/07/18 09/08/18 18:59 06:59 Intake Total 445 ml 775 ml Output Total 550 ml 650 ml Balance -105 ml 125 ml Intake Free Water 60 ml 60 ml IV Total 55 ml Tube Feeding 385 ml 660 ml Output Urine Total 550 ml 650 ml Objective General: No acute distress, awake and more responsive, open eyes, not verbal. HEENT: NCAT, sclera anicteric, PERRL, Neck: Supple, no significant jugular venous distention, Lungs: Fair inspiratory effort, decrease air on bases no Wheeze. Heart: Regular rate and rhythm, normal S1/S2, no murmurs. Abdomen: soft, nontender, nondistended. Normoactive bowel sounds.PEG Extremities: No Cyanosis , clubbing or edema. Neuro: Very limited secondary to the patient's status. Contraction of upper extremities as well as lower extremity functional quadriplegia as well as weakness on the left side greater than right side. Skin: warm, no rashes. Assessment/Plan Assessment/Plan ASSESSMENT: 1. Sepsis secondary to pneumonia. 2. Atrial fibrillation with rapid ventricular rate. 3. Lactic acidosis. 4. Functional quadriplegia. 5. E. Coli ESBL Urinary tract infection. 6. Hypothyroidism. 7. Chronic iron deficiency anemia. 8. Hypertension. 9. Sick sinus syndrome/pacemaker. 10. Basal ganglia cerebrovascular accident with hemiparesis. 11. Seizure disorder. 12. Morbid obesity. 13. Dysphagia status post percutaneous endoscopic gastrostomy. PLAN: DC monitored unit. Full Code. Broad-spectrum antibiotics: Vancomycin and Imipenem Dr. Wyatt from Cardiology Electrophysiology Dr. Marques Lau from Pulmonary Critical monitor Labs and cultures. Joshua Ramsey M.D. Joshua Ramsey MD Sep 08, 2018 14:39
--- NOTE | 2018-09-08 14:57 | Pulmonology Progress Note ---
Assessment/Plan Assessment/Plan Pulmonary Progress Note Chief Complaint: Generalized Weakness, coughing HPI Patient presents from nursing facility with reports of being'sick' This is what the paramedics reported Patient herself appears to have had a previous large CVA Is nonverbal Noted to have Pneumonia on CXR History of present illness is significantly limited There was a report that the patient had been just recently transferred to the nursing facility from another hospitalization Allergies: Coded Allergies: CHLORDIAZEPOXIDE (Verified Allergy, Mild, 01/05/10) DIAZEPAM (Verified Allergy, Mild, 01/05/10) HYDROCHLOROTHIAZIDE (Verified Allergy, Mild, 01/05/10) PENICILLIN G (Verified Allergy, Mild, HIVES, 01/05/10) HYDROMORPHONE (Unverified Allergy, Unknown, 02/22/17) MORPHINE (Unverified Allergy, Unknown, 02/22/17) PENICILLINS (Unverified Allergy, Unknown, 02/22/17) Uncoded Allergies: HYDROCHLOROTHIAZIDE (Allergy, Unknown, 02/22/17) Patient History Limited by: medical condition Past Medical History: see triage record Pertinent Family History: unable to obtain Reviewed Nursing Documentation: PMH: Agreed; PSxH: Agreed Nursing Documentation-PMH Hx Cardiac Problems: Yes - CHF, paroxysmal a-fib, hypothyroidism, chronic iron deficiency anemia Hx Hypertension: Yes Hx Pacemaker: Yes History Of Psychiatric Problem: Yes - Depression degenerative disease of basal ganglia Hx Neurological Problems: Yes - Muscle weakness, ankle contracture, quadriplegia, metabolic encephalopathy, Hx Cerebrovascular Accident: Yes Hx Seizures: Yes Review of Systems All Other Systems: limited - Other than the ones mentioned in the history of present illness all others are reviewed however they do stay limited due to the patient's mental status Physical Exam Vital Signs Noted Sp02 EP Interpretation: reviewed, normal General Appearance: mild distress Head: atraumatic Eyes: bilateral eye PERRL ENT: dry mucus membranes Neck: supple Respiratory: crackles, other - Mildly tachypneic Cardiovascular #1: irregularly irregular Gastrointestinal: non tender, soft Musculoskeletal: other - Patient chronically debilitated, left hand is extended , does not follow commands Neurologic: responsive - To physical stimuli Skin: pallor Lymphatic: no adenopathy Impression: Primary Impression: Pneumonia, Sepsis Atrial fibrillation with RVR UTI (urinary tract infection) CHF, paroxysmal a-fib Hypothyroidism Chronic iron deficiency anemia HTN PPM Previous CVA, basal ganglia disease Seizure History Hx Hypertension: Yes Hx Pacemaker: Yes History Of Psychiatric Problem: Yes - Depression degenerative disease of basal ganglia Hx Neurological Problems: Yes - Muscle weakness, ankle contracture, quadriplegia, metabolic encephalopathy, Hx Cerebrovascular Accident: Yes Hx Seizures: Yes ER Course Patient is a fairly complex patient with multiple differential to consideration including but not limited to cardiac cardiopulmonary and vascular emergencies Patient required IV hydration and antibiotics Sepsis reexamination Time: Reevaluation VS refer to nursing note cvs: RRR respiratory: improved respiration peripheral pulses: 2+radial cap refill:<2 seconds skin exam: warm, dry, not mottled Patient continues to be in critical condition and admitted for further care Labs Test 09/05/18 01:00 09/05/18 01:20 09/05/18 03:00 White Blood Count 15.1 K/UL (4.8-10.8) Red Blood Count 5.40 M/UL (4.20-5.40) Hemoglobin 16.4 G/DL (12.0-16.0) Hematocrit 51.4 % (37.0-47.0) Mean Corpuscular Volume 95 FL (80-99) Mean Corpuscular Hemoglobin 30.4 PG (27.0-31.0) Mean Corpuscular Hemoglobin Concent 31.9 G/DL (32.0-36.0) Red Cell Distribution Width 14.4 % (11.6-14.8) Platelet Count 292 K/UL (150-450) Mean Platelet Volume 6.0 FL (6.5-10.1) Neutrophils (%) (Auto) % (45.0-75.0) Lymphocytes (%) (Auto) % (20.0-45.0) Monocytes (%) (Auto) % (1.0-10.0) Eosinophils (%) (Auto) % (0.0-3.0) Basophils (%) (Auto) % (0.0-2.0) Sodium Level 140 MMOL/L (136-145) Potassium Level 3.8 MMOL/L (3.5-5.1) Chloride Level 99 MMOL/L (98-107) Carbon Dioxide Level 31 MMOL/L (21-32) Anion Gap 10 mmol/L (5-15) Blood Urea Nitrogen 18 mg/dL (7-18) Creatinine 0.8 MG/DL (0.55-1.30) Estimat Glomerular Filtration Rate mL/min (>60) Glucose Level 138 MG/DL (74-106) Lactic Acid Level 3.50 mmol/L (0.4-2.0) 1.90 mmol/L (0.66-2.22) Calcium Level 9.7 MG/DL (8.5-10.1) Total Bilirubin 0.9 MG/DL (0.2-1.0) Aspartate Amino Transf (AST/SGOT) 24 U/L (15-37) Alanine Aminotransferase (ALT/SGPT) 19 U/L (12-78) Alkaline Phosphatase 102 U/L (46-116) Total Creatine Kinase 82 U/L (26-308) Creatine Kinase MB 1.5 NG/ML (0.0-3.6) Creatine Kinase MB Relative Index 1.8 Troponin I 0.033 ng/mL (0.000-0.056) Pro-B-Type Natriuretic Peptide 640 pg/mL (0-125) Total Protein 9.1 G/DL (6.4-8.2) Albumin 3.4 G/DL (3.4-5.0) Globulin 5.7 g/dL Albumin/Globulin Ratio 0.6 (1.0-2.7) Lipase 187 U/L (73-393) Urine Color Yellow Urine Appearance Cloudy Urine pH 7 (4.5-8.0) Urine Specific [place] 1.010 (1.005-1.035) Urine Protein 3+ (NEGATIVE) Urine Glucose (UA) Negative (NEGATIVE) Urine Ketones Negative (NEGATIVE) Urine Blood 3+ (NEGATIVE) Urine Nitrite Positive (NEGATIVE) Urine Bilirubin Negative (NEGATIVE) Urine Urobilinogen 1 MG/DL (0.0-1.0) Urine Leukocyte Esterase 3+ (NEGATIVE) Urine RBC 10-15 /HPF (0 - 2) Urine WBC 60-80 /HPF (0 - 2) Urine Squamous Epithelial Cells Moderate /LPF (NONE/OCC) Urine Bacteria Many /HPF (NONE) EKG Diagnostic Results Rate: tachycardiac Rhythm: other - afib ST Segments: other - Nonspecific ST changes Rhythm Strip Diag. Results EP Interpretation: yes Rate: 80 Rhythm: no PVC's, no ectopy, other - Atrial fibrillation Chest X-Ray Diagnostic Results Chest X-Ray Diagnostic Results : Chest X-Ray Ordered: Yes # of Views/Limited/Complete: 1 View Indication: Chest Pain EP Interpretation: Yes Interpretation: no effusion, no pneumothorax, other - Right-sided marking concerning for infiltrated Impression: Other - Right-sided marking possible pneumonia Subjective ROS Limited/Unobtainable: No Allergies: Coded Allergies: CHLORDIAZEPOXIDE (Verified Allergy, Mild, 01/05/10) DIAZEPAM (Verified Allergy, Mild, 01/05/10) HYDROCHLOROTHIAZIDE (Verified Allergy, Mild, 01/05/10) PENICILLIN G (Verified Allergy, Mild, HIVES, 01/05/10) HYDROMORPHONE (Unverified Allergy, Unknown, 02/22/17) MORPHINE (Unverified Allergy, Unknown, 02/22/17) PENICILLINS (Unverified Allergy, Unknown, 02/22/17) Uncoded Allergies: HYDROCHLOROTHIAZIDE (Allergy, Unknown, 02/22/17) Objective Last 24 Hour Vital Signs Date Time Temp Pulse Resp B/P (MAP) Pulse Ox O2 Delivery O2 Flow Rate FiO2 09/08/18 14:41 79 18 93 Nasal Cannula 2.0 28 09/08/18 12:00 97.2 84 18 140/82 (101) 97 09/08/18 12:00 85 09/08/18 09:04 Nasal Cannula 2.0 Nasal Cannula 2.0 09/08/18 08:20 84 09/08/18 08:00 71 09/08/18 08:00 97.7 72 18 145/68 (93) 96 09/08/18 07:43 84 20 95 Nasal Cannula 2.0 28 09/08/18 07:31 Nasal Cannula 2.0 28 09/08/18 07:31 92 Nasal Cannula 2.0 28 09/08/18 07:28 81 18 92 Nasal Cannula 2.0 28 09/08/18 06:11 76 171/80 09/08/18 06:11 171/80 09/08/18 04:00 76 09/08/18 04:00 98.6 71 24 171/80 (110) 95 09/08/18 01:32 71 20 99 Nasal Cannula 2.0 28 09/08/18 01:25 78 20 97 Nasal Cannula 2.0 28 09/08/18 00:00 72 09/08/18 00:00 98.8 71 25 157/82 (107) 95 12/23/18 21:13 71 189/92 09/07/18 21:13 189/92 09/07/18 21:00 Nasal Cannula 2.0 Nasal Cannula 2.0 09/07/18 20:22 70 20 98 Nasal Cannula 2.0 28 09/07/18 20:13 70 20 100 Nasal Cannula 2.0 28 09/07/18 20:13 Nasal Cannula 2.0 28 09/07/18 20:12 100 Nasal Cannula 2.0 28 09/07/18 20:00 97.9 71 24 189/92 (124) 95 09/07/18 20:00 70 09/07/18 16:00 98.4 72 20 118/80 (93) 95 09/07/18 16:00 72 Intake and Output 09/07/18 09/08/18 18:59 06:59 Intake Total 445 ml 775 ml Output Total 550 ml 650 ml Balance -105 ml 125 ml Intake Free Water 60 ml 60 ml IV Total 55 ml Tube Feeding 385 ml 660 ml Output Urine Total 550 ml 650 ml Laboratory Tests 09/08/18 06:05: White Blood Count 8.6, Red Blood Count 3.86L, Hemoglobin 11.8L, Hematocrit 36.5L , Mean Corpuscular Volume 95, Mean Corpuscular Hemoglobin 30.6, Mean Corpuscular Hemoglobin Concent 32.3, Red Cell Distribution Width 14.1, Platelet Count 256, Mean Platelet Volume 6.0L, Neutrophils (%) (Auto) 70.3, Lymphocytes ( %) (Auto) 19.5L, Monocytes (%) (Auto) 7.5, Eosinophils (%) (Auto) 2.2, Basophils (%) (Auto) 0.5, Sodium Level 144, Potassium Level 3.4L, Chloride Level 107, Carbon Dioxide Level 29, Anion Gap 8, Blood Urea Nitrogen 16, Creatinine 0.8, Estimat Glomerular Filtration Rate , Glucose Level 115H, Calcium Level 8.5, Phosphorus Level 3.3, Magnesium Level 1.8, Total Bilirubin 0.3, Aspartate Amino Transf (AST/SGOT) 22, Alanine Aminotransferase (ALT/SGPT) 13, Alkaline Phosphatase 66, Total Protein 6.9, Albumin 2.3L, Globulin 4.6, Albumin/Globulin Ratio 0.5L Current Medications Medications (Trade) Dose Ordered Sig/Richard Route PRN Reason Start Time Stop Time Status Last Admin Dose Admin Acetaminophen (Tylenol) 650 mg Q6H PRN GT Mild Pain/Temp > 100.5 09/05/18 12:15 10/05/18 12:14 Apixaban (Eliquis) 5 mg BID GT 09/05/18 18:00 10/05/18 17:59 09/08/18 08:19 Atorvastatin Calcium (Lipitor) 40 mg BEDTIME GT 09/05/18 21:00 10/05/18 20:59 09/07/18 21:12 Digoxin (Lanoxin) 0.125 mg DAILY GT 09/05/18 12:30 10/05/18 12:29 09/08/18 08:20 Hydralazine HCl (Apresoline) 50 mg Q8HR ORAL 09/05/18 14:00 10/05/18 13:59 09/08/18 06:11 Ipratropium [place] (Atrovent) 500 mcg Q6HRT HHN 09/05/18 19:00 09/10/18 18:59 09/08/18 14:40 Lansoprazole (Prevacid) 30 mg DAILY GT 09/06/18 09:00 10/06/18 08:59 09/08/18 08:20 Levetiracetam (Keppra) 750 mg Q12HR NG 09/05/18 21:00 10/05/18 20:59 09/08/18 08:20 Levothyroxine Sodium (Synthroid) 50 mcg DAILY@0630 GT 09/06/18 06:30 10/06/18 06:29 09/08/18 06:11 Magnesium Oxide (Mag-Ox 400mg) 250 mg DAILY GT 09/05/18 12:30 10/05/18 12:29 09/08/18 08:20 Meropenem 1 gm/ Sodium Chloride 55 ml @ 110 mls/hr Q12H IVPB 09/07/18 17:00 09/12/18 16:59 09/08/18 05:20 Quetiapine Fumarate (SEROquel) 12.5 mg Q4H PRN GT agitation 09/06/18 12:30 10/06/18 00:00 Vancomycin HCl (Vanco rx to dose) 1 ea DAILY PRN MISC Per rx protocol 09/05/18 15:45 10/05/18 15:44 Vancomycin/Sodium Chloride 250 ml @ 166.667 mls/hr Q12H IVPB 09/05/18 17:00 09/10/18 16:59 09/08/18 05:20 Verapamil HCl (Calan) 160 mg Q8HR GT 09/06/18 13:00 10/06/18 12:59 09/08/18 06:11 Marques Lau MD Sep 08, 2018 14:57
--- NOTE | 2018-09-08 15:12 | Infectious Diseases Prog Note ---
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 Ramsey thank you Subjective Allergies: Coded Allergies: CHLORDIAZEPOXIDE (Verified Allergy, Mild, 01/05/10) DIAZEPAM (Verified Allergy, Mild, 01/05/10) HYDROCHLOROTHIAZIDE (Verified Allergy, Mild, 01/05/10) PENICILLIN G (Verified Allergy, Mild, HIVES, 01/05/10) HYDROMORPHONE (Unverified Allergy, Unknown, 02/22/17) MORPHINE (Unverified Allergy, Unknown, 02/22/17) PENICILLINS (Unverified Allergy, Unknown, 02/22/17) Uncoded Allergies: HYDROCHLOROTHIAZIDE (Allergy, Unknown, 02/22/17) Objective Vital Signs Last 24 Hour Vital Signs Date Time Temp Pulse Resp B/P (MAP) Pulse Ox O2 Delivery O2 Flow Rate FiO2 09/08/18 14:41 79 18 93 Nasal Cannula 2.0 28 09/08/18 12:00 97.2 84 18 140/82 (101) 97 09/08/18 12:00 85 09/08/18 09:04 Nasal Cannula 2.0 Nasal Cannula 2.0 09/08/18 08:20 84 09/08/18 08:00 71 09/08/18 08:00 97.7 72 18 145/68 (93) 96 09/08/18 07:43 84 20 95 Nasal Cannula 2.0 28 09/08/18 07:31 Nasal Cannula 2.0 28 09/08/18 07:31 92 Nasal Cannula 2.0 28 09/08/18 07:28 81 18 92 Nasal Cannula 2.0 28 09/08/18 06:11 76 171/80 09/08/18 06:11 171/80 09/08/18 04:00 76 09/08/18 04:00 98.6 71 24 171/80 (110) 95 09/08/18 01:32 71 20 99 Nasal Cannula 2.0 28 09/08/18 01:25 78 20 97 Nasal Cannula 2.0 28 09/08/18 00:00 72 09/08/18 00:00 98.8 71 25 157/82 (107) 95 09/07/18 21:13 71 189/92 09/07/18 21:13 189/92 09/07/18 21:00 Nasal Cannula 2.0 Nasal Cannula 2.0 09/07/18 20:22 70 20 98 Nasal Cannula 2.0 28 09/07/18 20:13 70 20 100 Nasal Cannula 2.0 28 09/07/18 20:13 Nasal Cannula 2.0 28 09/07/18 20:12 100 Nasal Cannula 2.0 28 09/07/18 20:00 97.9 71 24 189/92 (124) 95 09/07/18 20:00 70 09/07/18 16:00 98.4 72 20 118/80 (93) 95 09/07/18 16:00 72 Height (Feet): 5 Height (Inches): 5.00 Weight (Pounds): 230 Laboratory Tests Test 09/08/18 06:05 White Blood Count 8.6 K/UL (4.8-10.8) Red Blood Count 3.86 M/UL (4.20-5.40) L Hemoglobin 11.8 G/DL (12.0-16.0) L Hematocrit 36.5 % (37.0-47.0) L Mean Corpuscular Volume 95 FL (80-99) Mean Corpuscular Hemoglobin 30.6 PG (27.0-31.0) Mean Corpuscular Hemoglobin Concent 32.3 G/DL (32.0-36.0) Red Cell Distribution Width 14.1 % (11.6-14.8) Platelet Count 256 K/UL (150-450) Mean Platelet Volume 6.0 FL (6.5-10.1) L Neutrophils (%) (Auto) 70.3 % (45.0-75.0) Lymphocytes (%) (Auto) 19.5 % (20.0-45.0) L Monocytes (%) (Auto) 7.5 % (1.0-10.0) Eosinophils (%) (Auto) 2.2 % (0.0-3.0) Basophils (%) (Auto) 0.5 % (0.0-2.0) Sodium Level 144 MMOL/L (136-145) Potassium Level 3.4 MMOL/L (3.5-5.1) L Chloride Level 107 MMOL/L (98-107) Carbon Dioxide Level 29 MMOL/L (21-32) Anion Gap 8 mmol/L (5-15) Blood Urea Nitrogen 16 mg/dL (7-18) Creatinine 0.8 MG/DL (0.55-1.30) Estimat Glomerular Filtration Rate mL/min (>60) Glucose Level 115 MG/DL (74-106) H Calcium Level 8.5 MG/DL (8.5-10.1) Phosphorus Level 3.3 MG/DL (2.5-4.9) Magnesium Level 1.8 MG/DL (1.8-2.4) Total Bilirubin 0.3 MG/DL (0.2-1.0) Aspartate Amino Transf (AST/SGOT) 22 U/L (15-37) Alanine Aminotransferase (ALT/SGPT) 13 U/L (12-78) Alkaline Phosphatase 66 U/L (46-116) Total Protein 6.9 G/DL (6.4-8.2) Albumin 2.3 G/DL (3.4-5.0) L Globulin 4.6 g/dL Albumin/Globulin Ratio 0.5 (1.0-2.7) L Current Medications Medications (Trade) Dose Ordered Sig/Richard Route PRN Reason Start Time Stop Time Status Last Admin Dose Admin Acetaminophen (Tylenol) 650 mg Q6H PRN GT Mild Pain/Temp > 100.5 09/05/18 12:15 10/05/18 12:14 Apixaban (Eliquis) 5 mg BID GT 09/05/18 18:00 10/05/18 17:59 09/08/18 08:19 Atorvastatin Calcium (Lipitor) 40 mg BEDTIME GT 09/05/18 21:00 10/05/18 20:59 09/07/18 21:12 Digoxin (Lanoxin) 0.125 mg DAILY GT 09/05/18 12:30 10/05/18 12:29 09/08/18 08:20 Hydralazine HCl (Apresoline) 50 mg Q8HR ORAL 09/05/18 14:00 10/05/18 13:59 09/08/18 06:11 Ipratropium [place] (Atrovent) 500 mcg Q6HRT HHN 09/05/18 19:00 09/10/18 18:59 09/08/18 14:40 Lansoprazole (Prevacid) 30 mg DAILY GT 09/06/18 09:00 10/06/18 08:59 09/08/18 08:20 Levetiracetam (Keppra) 750 mg Q12HR NG 09/05/18 21:00 10/05/18 20:59 09/08/18 08:20 Levothyroxine Sodium (Synthroid) 50 mcg DAILY@0630 GT 09/06/18 06:30 10/06/18 06:29 09/08/18 06:11 Magnesium Oxide (Mag-Ox 400mg) 250 mg DAILY GT 09/05/18 12:30 10/05/18 12:29 09/08/18 08:20 Meropenem 1 gm/ Sodium Chloride 55 ml @ 110 mls/hr Q12H IVPB 09/07/18 17:00 09/12/18 16:59 09/08/18 05:20 Quetiapine Fumarate (SEROquel) 12.5 mg Q4H PRN GT agitation 09/06/18 12:30 10/06/18 00:00 Vancomycin HCl (Vanco rx to dose) 1 ea DAILY PRN MISC Per rx protocol 09/05/18 15:45 10/05/18 15:44 Vancomycin/Sodium Chloride 250 ml @ 166.667 mls/hr Q12H IVPB 09/05/18 17:00 09/10/18 16:59 09/08/18 05:20 Verapamil HCl (Calan) 160 mg Q8HR GT 09/06/18 13:00 10/06/18 12:59 09/08/18 06:11 Kaden Obrien MD Sep 08, 2018 15:12
--- NOTE | 2018-09-08 15:24 | Cardiology Progress Note ---
Assessment/Plan Status: stable Assessment/Plan ASSESSMENT AND PLAN: 1. Atrial fibrillation with rapid ventricular response. Resume the patient's verapamil 240 mg b.i.d. and discontinue amlodipine. The patient is also on digoxin and is on Eliquis 5 mg b.i.d. for anticoagulation purposes. 2. Status post [employer] pacemaker in 2013. The pacemaker may need to be interrogated. Follow up as outpatient in clinic 3. Hypothyroidism, on Synthroid. 4. Dementia. 5. Dysphagia, status post G-tube. 6. Hyperlipidemia, on Lipitor. 7. Essential hypertension. Continue maximizing her antiarrhythmic therapy with verapamil as the patient has atrial fibrillation with rapid ventricular response. 8. Outpatient stress test 9 .Physical therapy 10. Dispo planning Subjective Cardiovascular: Reports: no symptoms Respiratory: Reports: no symptoms Gastrointestinal/Abdominal: Reports: no symptoms Genitourinary: Reports: no symptoms Subjective COVERAGE FOR TOLUE No acute events, 5 beats vtach, LVEF on echo 55% Patient is alert and oriented x1 opens eyes to name only. No s/s of pain, SOB, or signs of discomforts. Gtube feed tolerated Objective Last 24 Hour Vital Signs Date Time Temp Pulse Resp B/P (MAP) Pulse Ox O2 Delivery O2 Flow Rate FiO2 09/08/18 14:41 79 18 93 Nasal Cannula 2.0 28 09/08/18 12:00 97.2 84 18 140/82 (101) 97 09/08/18 12:00 85 09/08/18 09:04 Nasal Cannula 2.0 Nasal Cannula 2.0 09/08/18 08:20 84 09/08/18 08:00 71 09/08/18 08:00 97.7 72 18 145/68 (93) 96 09/08/18 07:43 84 20 95 Nasal Cannula 2.0 28 09/08/18 07:31 Nasal Cannula 2.0 28 09/08/18 07:31 92 Nasal Cannula 2.0 28 09/08/18 07:28 81 18 92 Nasal Cannula 2.0 28 09/08/18 06:11 76 171/80 09/08/18 06:11 171/80 09/08/18 04:00 76 09/08/18 04:00 98.6 71 24 171/80 (110) 95 09/08/18 01:32 71 20 99 Nasal Cannula 2.0 28 09/08/18 01:25 78 20 97 Nasal Cannula 2.0 28 09/08/18 00:00 72 09/08/18 00:00 98.8 71 25 157/82 (107) 95 09/07/18 21:13 71 189/92 09/07/18 21:13 189/92 09/07/18 21:00 Nasal Cannula 2.0 Nasal Cannula 2.0 09/07/18 20:22 70 20 98 Nasal Cannula 2.0 28 09/07/18 20:13 70 20 100 Nasal Cannula 2.0 28 09/07/18 20:13 Nasal Cannula 2.0 28 09/07/18 20:12 100 Nasal Cannula 2.0 28 09/07/18 20:00 97.9 71 24 189/92 (124) 95 09/07/18 20:00 70 09/07/18 16:00 98.4 72 20 118/80 (93) 95 09/07/18 16:00 72 General Appearance: no apparent distress, lethargic EENT: PERRL/EOMI, normal ENT inspection, TMs normal, pharynx normal Neck: non-tender, normal alignment, supple, normal inspection, no JVD Rhythm: NSR Cardiovascular: normal peripheral pulses, normal rate, regular rhythm Respiratory/Chest: chest wall non-tender, lungs clear, normal breath sounds Abdomen: normal bowel sounds, non tender, soft, no organomegaly, no mass Extremities: normal range of motion, non-tender, normal inspection 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, no motor/sensory deficits Intake and Output 09/07/18 09/08/18 18:59 06:59 Intake Total 445 ml 775 ml Output Total 550 ml 650 ml Balance -105 ml 125 ml Intake Free Water 60 ml 60 ml IV Total 55 ml Tube Feeding 385 ml 660 ml Output Urine Total 550 ml 650 ml Laboratory Tests Test 09/08/18 06:05 White Blood Count 8.6 K/UL (4.8-10.8) Red Blood Count 3.86 M/UL (4.20-5.40) L Hemoglobin 11.8 G/DL (12.0-16.0) L Hematocrit 36.5 % (37.0-47.0) L Mean Corpuscular Volume 95 FL (80-99) Mean Corpuscular Hemoglobin 30.6 PG (27.0-31.0) Mean Corpuscular Hemoglobin Concent 32.3 G/DL (32.0-36.0) Red Cell Distribution Width 14.1 % (11.6-14.8) Platelet Count 256 K/UL (150-450) Mean Platelet Volume 6.0 FL (6.5-10.1) L Neutrophils (%) (Auto) 70.3 % (45.0-75.0) Lymphocytes (%) (Auto) 19.5 % (20.0-45.0) L Monocytes (%) (Auto) 7.5 % (1.0-10.0) Eosinophils (%) (Auto) 2.2 % (0.0-3.0) Basophils (%) (Auto) 0.5 % (0.0-2.0) Sodium Level 144 MMOL/L (136-145) Potassium Level 3.4 MMOL/L (3.5-5.1) L Chloride Level 107 MMOL/L (98-107) Carbon Dioxide Level 29 MMOL/L (21-32) Anion Gap 8 mmol/L (5-15) Blood Urea Nitrogen 16 mg/dL (7-18) Creatinine 0.8 MG/DL (0.55-1.30) Estimat Glomerular Filtration Rate mL/min (>60) Glucose Level 115 MG/DL (74-106) H Calcium Level 8.5 MG/DL (8.5-10.1) Phosphorus Level 3.3 MG/DL (2.5-4.9) Magnesium Level 1.8 MG/DL (1.8-2.4) Total Bilirubin 0.3 MG/DL (0.2-1.0) Aspartate Amino Transf (AST/SGOT) 22 U/L (15-37) Alanine Aminotransferase (ALT/SGPT) 13 U/L (12-78) Alkaline Phosphatase 66 U/L (46-116) Total Protein 6.9 G/DL (6.4-8.2) Albumin 2.3 G/DL (3.4-5.0) L Globulin 4.6 g/dL Albumin/Globulin Ratio 0.5 (1.0-2.7) L Marques Hernandez MD Sep 08, 2018 15:24
[2018-09-08 16:04] VITALS: BP 136/72
[2018-09-08] MEDS ORDERED: Acetaminophen 650mg/20.3ml GT PRN (16:12)
--- NOTE | 2018-09-08 16:57 | NUR ---
NURSE NOTES: patient transferred to med-Surg as ordered. vital signs stable. report given to Rocio WRIGHT. No belonging. magnesium ordered 250 mg and medication available in 400mg.pharmacy asked to verify the dose with HCP .Rocio WRIGHT endorsed to follow up.
[2018-09-08] MEDS ORDERED: Vancomycin 750mg/NS 250ml 250 ML IVPB SCH (17:00)
--- NOTE | 2018-09-08 17:00 | NUR ---
NURSE NOTES: received patient transferred from telemetry unit, report received from KYLE Carson. No belongings at patient belongings list. Patient is awake, unable to assess orientation as patient is aphasic. Patient opens eyes and has lower mandible and left hand tremors, reassured by KYLE Carson patient has been having this demeanor. No s/s of SOB and pain at this time, on 2L O2/min nasal cannula. Patient has LAC and L hand IV accesses, intact and patent. patient has right hip wound and left AC 2 wounds appearing skin tear, done dressing and taken picture along with KYLE Carson. Patient has a G-Tube feeding running at 55 cc/ hour, HOB kept elevated for safety reasons. Bed at lowest position , siderails up x 3 and padded for safety reasons and seizure precaution. Place female external urinary catheter. Will continue to monitor patient and follow up with the plan of care.
--- NOTE | 2018-09-08 17:00 | Consultation ---
DATE OF CONSULTATION: INFECTIOUS DISEASES CONSULTATION NOTE: CANCELED DICTATION. ATTENDING PHYSICIAN: Joshua Ramsey M.D. Kaedn Obrien M.D. DR: Paula JOB#: [id number] CC:
--- NOTE | 2018-09-08 17:15 | Consultation ---
DATE OF CONSULTATION: 09/08/2018 INFECTIOUS DISEASES CONSULTATION ATTENDING PHYSICIAN: Joshua Ramsey M.D. REFERRING PHYSICIAN: Joshua Ramsey M.D. REASON FOR CONSULTATION: Complicated E. coli UTI with elevated white count, possible sepsis, possible pneumonia. The patient's chief complaint coming to the hospital is sepsis and dehydration. HISTORY OF PRESENT ILLNESS: This is a 72-year-old female, who comes in to [facility] with what looks like dehydration, sepsis, and elevated white count. The patient was noted to have urinary tract infection secondary to ESBL E. coli. The patient has complicated E. colic UTI with sepsis and elevated white count. Chest x-ray also shows possible pneumonia. Blood cultures have 1/4 coagulase staph, which is a contaminant. Infectious Diseases consultation was requested for antibiotic management. The patient is currently on meropenem and vancomycin. I have ordered a sputum culture and followup chest x-ray. The urine culture was ESBL E. coli. The case was discussed with Dr. Ramsey. MAR was noted. Orders were noted. Notes were reviewed. The patient has no Ace. The patient is nonverbal, cannot give any further history. Case was also discussed with RN. We will continue vancomycin and meropenem for complicated UTI and sepsis. REVIEW OF SYSTEMS: GENERAL: The patient is alert, responsive, but is nonverbal. HEAD AND NECK: Really could not assess. CARDIAC: No pressors. GASTROINTESTINAL: No nausea, vomiting, or diarrhea. GENITOURINARY: No Ace. PULMONARY: Mild cough and congestion, but no significant secretions or hemoptysis appreciated. SKIN: No rashes. EXTREMITIES: no cellulitis. NEUROLOGIC: No seizures. Generalized fatigue and weakness. No fevers. Nonverbal. No rash noted. No seizure activity. That is review of systems otherwise limited in this patient. PAST MEDICAL HISTORY: The patient's past medical history includes the following. The patient has history of septic shock, history of CHF, history of bacteremia in the past, history of morbid obesity, history of hypernatremia, history of hyperosmolality, history of hypothyroidism, history of metabolic encephalopathy, history of depression, history of atrial fibrillation, history of already mentioned obesity, history of stroke, history of aspiration risk, history of seizures, history of hypertension, history of dyslipidemia, history of GERD, history of hemiparesis, dysphagia, G-tube, history of pacemaker. No history of diabetes mentioned, history of hypothyroidism mentioned. No history of diabetes, history of functional quadriplegia. MEDICATIONS: Upon reviewing the MAR, she is on the following medications. She is on meropenem. She is on verapamil, Seroquel, Prevacid, Synthroid, Lipitor, and Keppra. She is on Atrovent, Eliquis, vancomycin, meropenem per pharmacy dosing, hydralazine, digoxin, magnesium hydroxide, and acetaminophen. Outside medications noted and reconciliated. ALLERGIES: Chlordiazepoxide. The patient is also allergic to diazepam, hydrochlorothiazide, hydromorphone, morphine, and penicillin. She tolerates meropenem. SOCIAL HISTORY: Negative for smoking, alcohol, or drug abuse. FAMILY HISTORY: Noncontributory. There is no mention of diabetes, cancer, or tuberculosis in the family. PHYSICAL EXAMINATION: VITAL SIGNS: Temperature 97.2 degrees, pulse rate 84, respiratory rate 18, blood pressure 140/82, saturation 97% on two liters. GENERAL: The patient is alert, opens eyes, but nonverbal. HEAD AND NECK: Oral exam, no thrush. Eye exam, no icterus. Normocephalic. Neck is supple. No JVD. HEART: Regular. No gallop or murmur. Occasionally irregular. ABDOMEN: Soft. Positive bowel sounds. Cannot assess tenderness, but does not seem tender. LUNGS: A few bilateral rhonchi and possible rales at bases more so on the right. SKIN: No rash or dermatitis. MUSCULOSKELETAL: No effusions. Cannot really assess septic arthritis. Lower extremity exam without cellulitis. PERIPHERAL VASCULAR: No cyanosis. GENITOURINARY: No Ace. LINE SITES: Without phlebitis. NEUROLOGIC: alert, responsive, but nonverbal. SKIN: Upon reviewing the skin, there is no obvious draining decubiti. LABORATORY AND DIAGNOSTIC DATA: Laboratory data as follows. Creatinine 0.8. White count 8.6, hemoglobin 11.8. White count on admission is 15.1. Urinalysis had 3+ leukocyte esterase, 6 to 8 white blood cells, many bacteria. Cultures, urine culture with greater than 100,000 ESBL E. coli UTI and other second organisms also E. coli. Also, 1/4 coag-negative Staph, which is contaminant. Imaging study shows a right lower lobe patchy infiltrate, right basilar infiltrate. ASSESSMENT AND PLAN: 1. The patient has what looks like extended-spectrum beta-lactamases Escherichia coli urinary tract infection, complicated urinary tract infection, dehydration, elevated white count, possible sepsis. The patient did have initially systemic inflammatory response syndrome criteria with white count over as high as 16 and heart rate well over 90 as high as 110 and 114. At this time, we will continue meropenem and vancomycin for methicillin-resistant Staphylococcus aureus and extended-spectrum beta-lactamases Escherichia coli treatment. The patient also on chest x-ray looks like she has pneumonia. She is at high risk for aspiration and healthcare-acquired pneumonia in addition to community-acquired pneumonia. Continue meropenem and vancomycin for extended-spectrum beta-lactamases Escherichia coli, urinary tract infection, sepsis, and pneumonia. Check sputum culture. Followup laboratories and chest x-ray. Coagulase-negative staph in the blood is likely contaminated and is unlikely the pathogen or infection. Continue meropenem and vancomycin. Check followup laboratories, cultures, chest x-ray. Case was discussed with Dr. Ramsey. 2. The patient has history of hypertension. Continue hypertension treatment per Dr. Ramsey. 3. The patient is anemic. 4. Acute renal failure. 5. Dehydration. 6. Intravenous fluids. 7. Hypothyroid. Continue thyroid supplementation per primary. 8. No history of diabetes. 9. The patient has history of dysphagia and gastrostomy tube. 10. Aspiration risk. 11. Cerebrovascular accident. 12. Left hemiparesis. 13. History of metabolic abnormality. 14. History of seizure. 15. Dyslipidemia. 16. Gastroesophageal reflux disease. 17. Acute kidney injury. 18. Congestive heart failure history. 19. Atrial fibrillation. 20. Past medical history noted. 21. The patient has multiple drug allergies including penicillin, however, tolerates meropenem. 22. Social history negative. 23. Family history noncontributory. 24. MAR was noted. 25. Case was discussed with RN. 26. Continue treatment per primary consultants. 27. Orders were noted and entered. Kaden Obrien M.D. DR: Paula JOB#: [id number] CC: MATI
[2018-09-08] MEDS: Vancomycin 750mg/NS 250ml 250 ML IVPB SCH (19:21)
--- NOTE | 2018-09-08 19:30 | NUR ---
NURSE NOTES: Received a report from KYLE Chan. Pt is in stable condition. Sleeping comfortably. No respiratory distress noted. Uses NC 2L/min. No pain/discomfort noted. IV site is patent and intact. HOB elevated. GT feeding is running. Bed in lowest position. Bed alarm is on. Call light within reach. Will continue to monitor.
[2018-09-08 20:00] VITALS: BP 156/87
--- NOTE | 2018-09-08 20:30 | NUR ---
NURSE NOTES: left message to dr. Ramsey voicemail regarding need of clarification of ordered Magnesium tab 250mg, as tablet comes in 400mg only.
--- NOTE | 2018-09-08 20:31 | NUR ---
HAND-OFF: Report given to KYLE Ortega.
--- NOTE | 2018-09-08 20:44 | NUR ---
HAND-OFF: Report given to KYLE Shannon.
[2018-09-08] MEDS: Atorvastatin 20mg tab GT SCH (21:51)
[2018-09-09] VITALS: BP 146/80
[2018-09-09] MEDS: Ipratropium 0.02% Inh Soln 2.5ml UD HHN SCH ×4 (03:17→20:00)
[2018-09-09 04:00] VITALS: BP 150/80
[2018-09-09] MEDS: Meropenem 1 GM in NS 55 ML IVPB SCH ×2 (04:07→16:23)
[2018-09-09] MEDS: Verapamil 80mg tab GT SCH ×3 (05:57→21:09)
[2018-09-09] MEDS: HydrALAZINE 50mg tab ORAL SCH ×3 (05:58→21:10)
[2018-09-09] MEDS: Vancomycin 750mg/NS 250ml 250 ML IVPB SCH ×2 (05:58→16:58)
--- NOTE | 2018-09-09 07:30 | NUR ---
NURSE NOTES: Received pt A/A/Ox1. able to follow commands. On O2 2L/min via NC . No pain/discomfort noted. removed IV heplock on L wrist sec to infiltration. HOB elevated for aspiration precaution. GT feeding is patent and tolerating well. Bed in lowest position. Bed alarm is on. Call light within reach. Will continue to monitor.
--- NOTE | 2018-09-09 07:45 | NUR ---
HAND-OFF: Report given to YANELIS Mitchell.
[2018-09-09 08:00] VITALS: BP 141/91
[2018-09-09] MEDS: Magnesium Oxide 400mg tab GT SCH (08:39)
[2018-09-09] MEDS: Eliquis 2.5mg tablet GT SCH ×2 (08:39→21:08)
[2018-09-09] MEDS: Digoxin 0.125mg tab GT SCH (08:39)
[2018-09-09] MEDS: levETIRAcetam 500mg/5ml Liquid NG SCH ×2 (08:40→21:10)
[2018-09-09] MEDS ORDERED: Magnesium Oxide 400mg tab GT SCH (09:00)
[2018-09-09 09:28] LABS: BASOPHILS % (AUTO) 0.7 % (0.0-2.0); EOSINOPHILS % (AUTO) 1.5 % (0.0-3.0); HEMOGLOBIN 13.1 G/DL (12.0-16.0); LYMPHOCYTES % (AUTO) 15.8 % (20.0-45.0); MEAN CORPUSCULAR VOLUME 97 FL (80-99); MONOCYTES % (AUTO) 5.7 % (1.0-10.0); NEUTROPHILS % (AUTO) 76.4 % (45.0-75.0); PLATELET COUNT 294 K/UL (150-450); RED BLOOD COUNT 4.23 M/UL (4.20-5.40); RED CELL DISTRIBUTION WIDTH 15.1 % (11.6-14.8); WHITE BLOOD COUNT 12.1 K/UL (4.8-10.8)
[2018-09-09 10:17] LABS: ALANINE AMINOTRANSFERASE 14 U/L (12-78); ALBUMIN 2.6 G/DL (3.4-5.0); ALBUMIN/GLOBULIN RATIO 0.6 (1.0-2.7); ALKALINE PHOSPHATASE 77 U/L (46-116); ANION GAP 8 mmol/L (5-15); ASPARTATE AMINO TRANSFERASE 17 U/L (15-37); BILIRUBIN,TOTAL 0.4 MG/DL (0.2-1.0); BLOOD UREA NITROGEN 13 mg/dL (7-18); CALCIUM 8.5 MG/DL (8.5-10.1); CARBON DIOXIDE 29 MMOL/L (21-32); CHLORIDE 105 MMOL/L (98-107); CREATININE 0.6 MG/DL (0.55-1.30); PHOSPHORUS 3.1 MG/DL (2.5-4.9); POTASSIUM 3.5 MMOL/L (3.5-5.1); SODIUM 142 MMOL/L (136-145)
--- NOTE | 2018-09-09 11:28 | Diagnostic Imaging Report ---
INDICATION: Infection COMPARISON: Chest x-ray dated 09/05/18 FINDINGS: Single frontal view demonstrates unchanged prominent cardiac size. Stable left chest wall pacemaker with leads in place. The lungs are otherwise clear with subtle opacity in the right lower lung zone.. No pleural effusions. The visualized osseous structures are within normal limits. IMPRESSION: Stable prominent cardiac size and left chest wall pacemaker. Improved aeration of the right lower lung zone.
[2018-09-09 12:00] VITALS: BP 136/88
--- NOTE | 2018-09-09 12:25 | NUR ---
NURSE NOTES: changed gt drsg. no leakage on the stome noted. patient is tolerating tube feeding well. No gastric residual noted. kept hob elevated for aspiration precautions. oral suctioned implemented intermittently. will cont to monitor.
--- NOTE | 2018-09-09 13:09 | Internal Med Progress Note ---
Subjective Physician Name Joshua Ramsey Attending Physician Joshua Ramsey MD Current Medications Medications (Trade) Dose Ordered Sig/Richard Route PRN Reason Start Time Stop Time Status Last Admin Dose Admin Acetaminophen (Tylenol) 650 mg Q6H PRN GT Mild Pain/Temp > 100.5 09/08/18 16:12 10/05/18 16:11 Apixaban (Eliquis) 5 mg Q12HR GT 09/08/18 21:00 10/08/18 20:59 09/09/18 08:39 Atorvastatin Calcium (Lipitor) 40 mg BEDTIME GT 09/08/18 21:00 10/05/18 20:59 09/08/18 21:51 Digoxin (Lanoxin) 0.125 mg DAILY GT 09/09/18 09:00 10/05/18 12:29 09/09/18 08:39 Hydralazine HCl (Apresoline) 50 mg Q8HR ORAL 09/08/18 22:00 10/05/18 13:59 09/09/18 05:58 Ipratropium [place] (Atrovent) 500 mcg Q6HRT HHN 09/08/18 19:00 09/10/18 18:59 09/09/18 12:50 Lansoprazole (Prevacid) 30 mg DAILY GT 09/09/18 09:00 10/06/18 08:59 09/09/18 08:39 Levetiracetam (Keppra) 750 mg Q12HR NG 09/08/18 21:00 10/05/18 20:59 09/09/18 08:40 Levothyroxine Sodium (Synthroid) 50 mcg DAILY@0630 GT 09/09/18 06:30 10/06/18 06:29 09/09/18 05:58 Magnesium Oxide (Mag-Ox 400mg) 400 mg DAILY GT 09/09/18 09:00 10/05/18 12:29 09/09/18 08:39 Meropenem 1 gm/ Sodium Chloride 55 ml @ 110 mls/hr Q12H IVPB 09/08/18 17:00 09/12/18 16:59 09/09/18 04:07 Quetiapine Fumarate (SEROquel) 12.5 mg Q4H PRN GT agitation 09/08/18 16:30 10/06/18 00:00 Vancomycin HCl (Vanco rx to dose) 1 ea DAILY PRN MISC Per rx protocol 09/09/18 09:00 10/05/18 15:44 Vancomycin/Sodium Chloride 250 ml @ 166.667 mls/hr Q12H IVPB 09/08/18 17:00 09/13/18 16:59 09/09/18 05:58 Verapamil HCl (Calan) 160 mg Q8HR GT 09/08/18 22:00 10/06/18 12:59 09/09/18 05:57 Allergies: Coded Allergies: CHLORDIAZEPOXIDE (Verified Allergy, Mild, 01/05/10) DIAZEPAM (Verified Allergy, Mild, 01/05/10) HYDROCHLOROTHIAZIDE (Verified Allergy, Mild, 01/05/10) PENICILLIN G (Verified Allergy, Mild, HIVES, 01/05/10) HYDROMORPHONE (Unverified Allergy, Unknown, 02/22/17) MORPHINE (Unverified Allergy, Unknown, 02/22/17) PENICILLINS (Unverified Allergy, Unknown, 02/22/17) Uncoded Allergies: HYDROCHLOROTHIAZIDE (Allergy, Unknown, 02/22/17) Subjective awake, responsive with open eyes, not verbal, NAD Objective Last Vital Signs Date Time Temp Pulse Resp B/P (MAP) Pulse Ox O2 Delivery O2 Flow Rate FiO2 09/09/18 12:51 75 16 99 Nasal Cannula 2.0 28 09/09/18 12:00 98.8 136/88 (104) Laboratory Tests Test 09/09/18 09:05 White Blood Count 12.1 K/UL (4.8-10.8) H Red Blood Count 4.23 M/UL (4.20-5.40) Hemoglobin 13.1 G/DL (12.0-16.0) Hematocrit 41.0 % (37.0-47.0) Mean Corpuscular Volume 97 FL (80-99) Mean Corpuscular Hemoglobin 31.1 PG (27.0-31.0) H Mean Corpuscular Hemoglobin Concent 32.1 G/DL (32.0-36.0) Red Cell Distribution Width 15.1 % (11.6-14.8) H Platelet Count 294 K/UL (150-450) Mean Platelet Volume 6.3 FL (6.5-10.1) L Neutrophils (%) (Auto) 76.4 % (45.0-75.0) H Lymphocytes (%) (Auto) 15.8 % (20.0-45.0) L Monocytes (%) (Auto) 5.7 % (1.0-10.0) Eosinophils (%) (Auto) 1.5 % (0.0-3.0) Basophils (%) (Auto) 0.7 % (0.0-2.0) Sodium Level 142 MMOL/L (136-145) Potassium Level 3.5 MMOL/L (3.5-5.1) Chloride Level 105 MMOL/L (98-107) Carbon Dioxide Level 29 MMOL/L (21-32) Anion Gap 8 mmol/L (5-15) Blood Urea Nitrogen 13 mg/dL (7-18) Creatinine 0.6 MG/DL (0.55-1.30) Estimat Glomerular Filtration Rate mL/min (>60) Glucose Level 141 MG/DL (74-106) H Calcium Level 8.5 MG/DL (8.5-10.1) Phosphorus Level 3.1 MG/DL (2.5-4.9) Magnesium Level 1.8 MG/DL (1.8-2.4) Total Bilirubin 0.4 MG/DL (0.2-1.0) Aspartate Amino Transf (AST/SGOT) 17 U/L (15-37) Alanine Aminotransferase (ALT/SGPT) 14 U/L (12-78) Alkaline Phosphatase 77 U/L (46-116) Total Protein 7.0 G/DL (6.4-8.2) Albumin 2.6 G/DL (3.4-5.0) L Globulin 4.4 g/dL Albumin/Globulin Ratio 0.6 (1.0-2.7) L Intake and Output 09/08/18 09/09/18 18:59 06:59 Intake Total 745 ml 1171.667 ml Balance 745 ml 1171.667 ml Intake Free Water 40 ml IV Total 250 ml 471.667 ml Tube Feeding 495 ml 660 ml Objective General: No acute distress, awake and responsive with open eyes, not verbal. HEENT: NCAT, sclera anicteric, PERRLA. Left eye less erythema. Neck: Supple, no significant jugular venous distention, Lungs: Fair inspiratory effort, decrease air on bases no Wheeze. Heart: Regular rate and rhythm, normal S1/S2, no murmurs. Abdomen: soft, nontender, nondistended. Normoactive bowel sounds. +PEG Extremities: No Cyanosis , clubbing or edema. Neuro: Very limited secondary to the patient's status. Contraction of upper extremities as well as lower extremity functional quadriplegia as well as weakness on the left side greater than right side. Skin: warm, no rashes. Assessment/Plan Assessment/Plan ASSESSMENT: 1. Sepsis secondary to pneumonia. 2. Atrial fibrillation with rapid ventricular rate. 3. Lactic acidosis. 4. Functional quadriplegia. 5. E. Coli ESBL Urinary tract infection. 6. Hypothyroidism. 7. Chronic iron deficiency anemia. 8. Hypertension. 9. Sick sinus syndrome/pacemaker. 10. Basal ganglia cerebrovascular accident with hemiparesis. 11. Seizure disorder. 12. Morbid obesity. 13. Dysphagia status post percutaneous endoscopic gastrostomy. PLAN: in Medical Unit. Full Code. Broad-spectrum antibiotics: Vancomycin and Imipenem Dr. Wyatt from Cardiology Electrophysiology Dr. Marques Lau from Pulmonary Critical monitor Labs and cultures. DC Planning to SNF in 1-2 days Joshua Ramsey M.D. Joshua Ramsey MD Sep 09, 2018 13:08
--- NOTE | 2018-09-09 13:57 | Infectious Diseases Prog Note ---
Assessment/Plan Assessment/Plan ASSESSMENT AND PLAN: 1. esbl e.coli uti, pna, sepsis, leukocytosis - - meropenem (day #2) and vancomycin (day # 4) - monitor labs - chest x-ray improved - clinically stable 2. The patient has history of hypertension. Continue hypertension treatment per Dr. Ramsey. 3. The patient is anemic. 4. Acute renal failure. 5. Dehydration. 6. Intravenous fluids. 7. Hypothyroid. Continue thyroid supplementation per primary. 8. No history of diabetes. 9. The patient has history of dysphagia and gastrostomy tube. 10. Aspiration risk. 11. Cerebrovascular accident. 12. Left hemiparesis. 13. History of metabolic abnormality. 14. History of seizure. 15. Dyslipidemia. 16. Gastroesophageal reflux disease. 17. Acute kidney injury. 18. Congestive heart failure history. 19. Atrial fibrillation. 20. Past medical history noted. 21. The patient has multiple drug allergies including penicillin, however, tolerates meropenem. 22. Social history negative. 23. Family history noncontributory. 24. MAR was noted. 25. Case was discussed with RN. 26. Continue treatment per primary consultants. 27. Orders were noted and entered. Subjective Constitutional: Reports: fatigue, other - non-verbal ; Denies: fever HEENT: Denies: congestion Respiratory: Denies: shortness of breath, productive cough Cardiovascular: Reports: other - no preesors Gastrointestinal/Abdominal: Denies: nausea, vomiting, diarrhea Genitourinary: Reports: other - no booker Neurologic: Reports: other - weak, alert, non-verbal Psychiatric: Reports: other - na Skin: Denies: rash Hematologic: Denies: bleeding Musculoskeletal: Reports: other - na Allergies: Coded Allergies: CHLORDIAZEPOXIDE (Verified Allergy, Mild, 01/05/10) DIAZEPAM (Verified Allergy, Mild, 01/05/10) HYDROCHLOROTHIAZIDE (Verified Allergy, Mild, 01/05/10) PENICILLIN G (Verified Allergy, Mild, HIVES, 01/05/10) HYDROMORPHONE (Unverified Allergy, Unknown, 02/22/17) MORPHINE (Unverified Allergy, Unknown, 02/22/17) PENICILLINS (Unverified Allergy, Unknown, 02/22/17) Uncoded Allergies: HYDROCHLOROTHIAZIDE (Allergy, Unknown, 02/22/17) Objective Vital Signs Last 24 Hour Vital Signs Date Time Temp Pulse Resp B/P (MAP) Pulse Ox O2 Delivery O2 Flow Rate FiO2 09/09/18 12:51 75 16 99 Nasal Cannula 2.0 28 09/09/18 12:45 77 16 97 Nasal Cannula 2.0 28 09/09/18 12:00 98.8 84 19 136/88 (104) 100 09/09/18 09:00 Nasal Cannula 2.0 Nasal Cannula 2.0 09/09/18 08:39 72 09/09/18 08:00 97.7 72 17 141/91 (108) 100 09/09/18 07:42 72 18 99 Nasal Cannula 2.0 28 09/09/18 07:42 Nasal Cannula 2.0 28 09/09/18 07:42 99 Nasal Cannula 2.0 28 09/09/18 07:37 74 16 99 Nasal Cannula 2.0 28 09/09/18 05:58 150/80 09/09/18 05:57 73 150/80 09/09/18 04:00 97.7 73 18 150/80 (103) 100 09/09/18 03:28 70 20 98 Nasal Cannula 2.0 28 09/09/18 03:17 70 18 98 Nasal Cannula 2.0 28 09/09/18 00:00 97.6 81 20 146/80 (102) 98 09/08/18 21:52 156/87 09/08/18 21:51 72 156/87 09/08/18 21:48 75 20 98 Nasal Cannula 2.0 28 09/08/18 21:36 Nasal Cannula 2.0 28 09/08/18 21:36 72 18 98 Nasal Cannula 2.0 09/08/18 21:36 98 Nasal Cannula 2.0 28 09/08/18 21:00 Nasal Cannula 2.0 Nasal Cannula 2.0 09/08/18 20:00 98.5 74 18 156/87 (110) 99 09/08/18 16:04 97.5 82 20 136/72 (93) 97 09/08/18 15:37 79 140/82 09/08/18 15:37 140/82 09/08/18 14:51 80 20 95 Nasal Cannula 2.0 09/08/18 14:41 79 18 93 Nasal Cannula 2.0 28 Height (Feet): 5 Height (Inches): 5.00 Weight (Pounds): 230 General Appearance: no acute distress HEENT: normocephalic, atraumatic, anicteric, mucous membranes moist, EOMI, supple, no JVD Respiratory/Chest: lungs clear, normal breath sounds, no respiratory distress, no accessory muscle use Cardiovascular: normal rate, regular rhythm, no gallop/murmur, no JVD Abdomen: normal bowel sounds, soft, non tender, no organomegaly, non distended Genitourinary: other - no booker Extremities: no cyanosis Skin: no rash Neurologic/Psychiatric: 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 The left hemidiaphragm is elevated. The pleural spaces are clear. Is a left chest pacemaker again demonstrated Impression: Patchy right basilar infiltrate, likely pneumonia 09/09/18 - chest x-ray: COMPARISON: Chest x-ray dated 09/05/18 FINDINGS: Single frontal view demonstrates unchanged prominent cardiac size. Stable left chest wall pacemaker with leads in place. The lungs are otherwise clear with subtle opacity in the right lower lung zone.. No pleural effusions. The visualized osseous structures are within normal limits. IMPRESSION: Stable prominent cardiac size and left chest wall pacemaker. Improved aeration of the right lower lung zone. Microbiology Date/Time Source Procedure Growth Status 09/05/18 01:00 Blood Blood Culture - Final Staphylococcus Sp Coag Neg Complete 09/05/18 00:30 Nasal Nares Influenza Types A,B Antigen (LEXI) - Final Complete 09/05/18 01:20 Urine,Clean Catch Urine Culture - Final Escherichia Coli - Esbl Escherichia Coli Complete 09/05/18 02:30 Rectum - Final NO CARBAPENEM-RESISTANT ENTEROBACTERI... Complete Laboratory Tests Test 09/09/18 09:05 White Blood Count 12.1 K/UL (4.8-10.8) H Red Blood Count 4.23 M/UL (4.20-5.40) Hemoglobin 13.1 G/DL (12.0-16.0) Hematocrit 41.0 % (37.0-47.0) Mean Corpuscular Volume 97 FL (80-99) Mean Corpuscular Hemoglobin 31.1 PG (27.0-31.0) H Mean Corpuscular Hemoglobin Concent 32.1 G/DL (32.0-36.0) Red Cell Distribution Width 15.1 % (11.6-14.8) H Platelet Count 294 K/UL (150-450) Mean Platelet Volume 6.3 FL (6.5-10.1) L Neutrophils (%) (Auto) 76.4 % (45.0-75.0) H Lymphocytes (%) (Auto) 15.8 % (20.0-45.0) L Monocytes (%) (Auto) 5.7 % (1.0-10.0) Eosinophils (%) (Auto) 1.5 % (0.0-3.0) Basophils (%) (Auto) 0.7 % (0.0-2.0) Sodium Level 142 MMOL/L (136-145) Potassium Level 3.5 MMOL/L (3.5-5.1) Chloride Level 105 MMOL/L (98-107) Carbon Dioxide Level 29 MMOL/L (21-32) Anion Gap 8 mmol/L (5-15) Blood Urea Nitrogen 13 mg/dL (7-18) Creatinine 0.6 MG/DL (0.55-1.30) Estimat Glomerular Filtration Rate mL/min (>60) Glucose Level 141 MG/DL (74-106) H Calcium Level 8.5 MG/DL (8.5-10.1) Phosphorus Level 3.1 MG/DL (2.5-4.9) Magnesium Level 1.8 MG/DL (1.8-2.4) Total Bilirubin 0.4 MG/DL (0.2-1.0) Aspartate Amino Transf (AST/SGOT) 17 U/L (15-37) Alanine Aminotransferase (ALT/SGPT) 14 U/L (12-78) Alkaline Phosphatase 77 U/L (46-116) Total Protein 7.0 G/DL (6.4-8.2) Albumin 2.6 G/DL (3.4-5.0) L Globulin 4.4 g/dL Albumin/Globulin Ratio 0.6 (1.0-2.7) L Current Medications Medications (Trade) Dose Ordered Sig/Richard Route PRN Reason Start Time Stop Time Status Last Admin Dose Admin Acetaminophen (Tylenol) 650 mg Q6H PRN GT Mild Pain/Temp > 100.5 09/08/18 16:12 10/05/18 16:11 Apixaban (Eliquis) 5 mg Q12HR GT 09/08/18 21:00 10/08/18 20:59 09/09/18 08:39 Atorvastatin Calcium (Lipitor) 40 mg BEDTIME GT 09/08/18 21:00 10/05/18 20:59 09/08/18 21:51 Digoxin (Lanoxin) 0.125 mg DAILY GT 09/09/18 09:00 10/05/18 12:29 09/09/18 08:39 Hydralazine HCl (Apresoline) 50 mg Q8HR ORAL 09/08/18 22:00 10/05/18 13:59 09/09/18 05:58 Ipratropium [place] (Atrovent) 500 mcg Q6HRT HHN 09/08/18 19:00 09/10/18 18:59 09/09/18 12:50 Lansoprazole (Prevacid) 30 mg DAILY GT 09/09/18 09:00 10/06/18 08:59 09/09/18 08:39 Levetiracetam (Keppra) 750 mg Q12HR NG 09/08/18 21:00 10/05/18 20:59 09/09/18 08:40 Levothyroxine Sodium (Synthroid) 50 mcg DAILY@0630 GT 09/09/18 06:30 10/06/18 06:29 09/09/18 05:58 Magnesium Oxide (Mag-Ox 400mg) 400 mg DAILY GT 09/09/18 09:00 10/05/18 12:29 09/09/18 08:39 Meropenem 1 gm/ Sodium Chloride 55 ml @ 110 mls/hr Q12H IVPB 09/08/18 17:00 09/12/18 16:59 09/09/18 04:07 Quetiapine Fumarate (SEROquel) 12.5 mg Q4H PRN GT agitation 09/08/18 16:30 10/06/18 00:00 Vancomycin HCl (Vanco rx to dose) 1 ea DAILY PRN MISC Per rx protocol 09/09/18 09:00 10/05/18 15:44 Vancomycin/Sodium Chloride 250 ml @ 166.667 mls/hr Q12H IVPB 09/08/18 17:00 09/13/18 16:59 09/09/18 05:58 Verapamil HCl (Calan) 160 mg Q8HR GT 09/08/18 22:00 10/06/18 12:59 09/09/18 05:57 Kaden Obrien MD Sep 09, 2018 13:57
[2018-09-09 16:00] VITALS: BP 147/79
--- NOTE | 2018-09-09 16:04 | Pulmonology Progress Note ---
Assessment/Plan Assessment/Plan Pulmonary Progress Note Chief Complaint: Generalized Weakness, coughing HPI Patient presents from nursing facility with reports of being'sick' This is what the paramedics reported Patient herself appears to have had a previous large CVA Is nonverbal Noted to have Pneumonia on CXR History of present illness is significantly limited There was a report that the patient had been just recently transferred to the nursing facility from another hospitalization Allergies: Coded Allergies: CHLORDIAZEPOXIDE (Verified Allergy, Mild, 01/05/10) DIAZEPAM (Verified Allergy, Mild, 01/05/10) HYDROCHLOROTHIAZIDE (Verified Allergy, Mild, 01/05/10) PENICILLIN G (Verified Allergy, Mild, HIVES, 01/05/10) HYDROMORPHONE (Unverified Allergy, Unknown, 02/22/17) MORPHINE (Unverified Allergy, Unknown, 02/22/17) PENICILLINS (Unverified Allergy, Unknown, 02/22/17) Uncoded Allergies: HYDROCHLOROTHIAZIDE (Allergy, Unknown, 02/22/17) Patient History Limited by: medical condition Past Medical History: see triage record Pertinent Family History: unable to obtain Reviewed Nursing Documentation: PMH: Agreed; PSxH: Agreed Nursing Documentation-PMH Hx Cardiac Problems: Yes - CHF, paroxysmal a-fib, hypothyroidism, chronic iron deficiency anemia Hx Hypertension: Yes Hx Pacemaker: Yes History Of Psychiatric Problem: Yes - Depression degenerative disease of basal ganglia Hx Neurological Problems: Yes - Muscle weakness, ankle contracture, quadriplegia, metabolic encephalopathy, Hx Cerebrovascular Accident: Yes Hx Seizures: Yes Review of Systems All Other Systems: limited - Other than the ones mentioned in the history of present illness all others are reviewed however they do stay limited due to the patient's mental status Physical Exam Vital Signs Noted Sp02 EP Interpretation: reviewed, normal General Appearance: mild distress Head: atraumatic Eyes: bilateral eye PERRL ENT: dry mucus membranes Neck: supple Respiratory: crackles, other - Mildly tachypneic Cardiovascular #1: irregularly irregular Gastrointestinal: non tender, soft Musculoskeletal: other - Patient chronically debilitated, left hand is extended , does not follow commands Neurologic: responsive - To physical stimuli Skin: pallor Lymphatic: no adenopathy Impression: Primary Impression: Pneumonia, Sepsis Atrial fibrillation with RVR UTI (urinary tract infection) CHF, paroxysmal a-fib Hypothyroidism Chronic iron deficiency anemia HTN PPM Previous CVA, basal ganglia disease Seizure History Hx Hypertension: Yes Hx Pacemaker: Yes History Of Psychiatric Problem: Yes - Depression degenerative disease of basal ganglia Hx Neurological Problems: Yes - Muscle weakness, ankle contracture, quadriplegia, metabolic encephalopathy, Hx Cerebrovascular Accident: Yes Hx Seizures: Yes ER Course Patient is a fairly complex patient with multiple differential to consideration including but not limited to cardiac cardiopulmonary and vascular emergencies Patient required IV hydration and antibiotics Sepsis reexamination Time: Reevaluation VS refer to nursing note cvs: RRR respiratory: improved respiration peripheral pulses: 2+radial cap refill:<2 seconds skin exam: warm, dry, not mottled Patient continues to be in critical condition and admitted for further care Labs Test 09/05/18 01:00 09/05/18 01:20 09/05/18 03:00 White Blood Count 15.1 K/UL (4.8-10.8) Red Blood Count 5.40 M/UL (4.20-5.40) Hemoglobin 16.4 G/DL (12.0-16.0) Hematocrit 51.4 % (37.0-47.0) Mean Corpuscular Volume 95 FL (80-99) Mean Corpuscular Hemoglobin 30.4 PG (27.0-31.0) Mean Corpuscular Hemoglobin Concent 31.9 G/DL (32.0-36.0) Red Cell Distribution Width 14.4 % (11.6-14.8) Platelet Count 292 K/UL (150-450) Mean Platelet Volume 6.0 FL (6.5-10.1) Neutrophils (%) (Auto) % (45.0-75.0) Lymphocytes (%) (Auto) % (20.0-45.0) Monocytes (%) (Auto) % (1.0-10.0) Eosinophils (%) (Auto) % (0.0-3.0) Basophils (%) (Auto) % (0.0-2.0) Sodium Level 140 MMOL/L (136-145) Potassium Level 3.8 MMOL/L (3.5-5.1) Chloride Level 99 MMOL/L (98-107) Carbon Dioxide Level 31 MMOL/L (21-32) Anion Gap 10 mmol/L (5-15) Blood Urea Nitrogen 18 mg/dL (7-18) Creatinine 0.8 MG/DL (0.55-1.30) Estimat Glomerular Filtration Rate mL/min (>60) Glucose Level 138 MG/DL (74-106) Lactic Acid Level 3.50 mmol/L (0.4-2.0) 1.90 mmol/L (0.66-2.22) Calcium Level 9.7 MG/DL (8.5-10.1) Total Bilirubin 0.9 MG/DL (0.2-1.0) Aspartate Amino Transf (AST/SGOT) 24 U/L (15-37) Alanine Aminotransferase (ALT/SGPT) 19 U/L (12-78) Alkaline Phosphatase 102 U/L (46-116) Total Creatine Kinase 82 U/L (26-308) Creatine Kinase MB 1.5 NG/ML (0.0-3.6) Creatine Kinase MB Relative Index 1.8 Troponin I 0.033 ng/mL (0.000-0.056) Pro-B-Type Natriuretic Peptide 640 pg/mL (0-125) Total Protein 9.1 G/DL (6.4-8.2) Albumin 3.4 G/DL (3.4-5.0) Globulin 5.7 g/dL Albumin/Globulin Ratio 0.6 (1.0-2.7) Lipase 187 U/L (73-393) Urine Color Yellow Urine Appearance Cloudy Urine pH 7 (4.5-8.0) Urine Specific [place] 1.010 (1.005-1.035) Urine Protein 3+ (NEGATIVE) Urine Glucose (UA) Negative (NEGATIVE) Urine Ketones Negative (NEGATIVE) Urine Blood 3+ (NEGATIVE) Urine Nitrite Positive (NEGATIVE) Urine Bilirubin Negative (NEGATIVE) Urine Urobilinogen 1 MG/DL (0.0-1.0) Urine Leukocyte Esterase 3+ (NEGATIVE) Urine RBC 10-15 /HPF (0 - 2) Urine WBC 60-80 /HPF (0 - 2) Urine Squamous Epithelial Cells Moderate /LPF (NONE/OCC) Urine Bacteria Many /HPF (NONE) EKG Diagnostic Results Rate: tachycardiac Rhythm: other - afib ST Segments: other - Nonspecific ST changes Rhythm Strip Diag. Results EP Interpretation: yes Rate: 80 Rhythm: no PVC's, no ectopy, other - Atrial fibrillation Chest X-Ray Diagnostic Results Chest X-Ray Diagnostic Results : Chest X-Ray Ordered: Yes # of Views/Limited/Complete: 1 View Indication: Chest Pain EP Interpretation: Yes Interpretation: no effusion, no pneumothorax, other - Right-sided marking concerning for infiltrated Impression: Other - Right-sided marking possible pneumonia Subjective ROS Limited/Unobtainable: No Allergies: Coded Allergies: CHLORDIAZEPOXIDE (Verified Allergy, Mild, 01/05/10) DIAZEPAM (Verified Allergy, Mild, 01/05/10) HYDROCHLOROTHIAZIDE (Verified Allergy, Mild, 01/05/10) PENICILLIN G (Verified Allergy, Mild, HIVES, 01/05/10) HYDROMORPHONE (Unverified Allergy, Unknown, 02/22/17) MORPHINE (Unverified Allergy, Unknown, 02/22/17) PENICILLINS (Unverified Allergy, Unknown, 02/22/17) Uncoded Allergies: HYDROCHLOROTHIAZIDE (Allergy, Unknown, 02/22/17) Objective Last 24 Hour Vital Signs Date Time Temp Pulse Resp B/P (MAP) Pulse Ox O2 Delivery O2 Flow Rate FiO2 09/09/18 14:01 112 158/85 09/09/18 14:01 158/85 09/09/18 12:51 75 16 99 Nasal Cannula 2.0 09/09/18 12:45 77 16 97 Nasal Cannula 2.0 09/09/18 12:00 98.8 84 19 136/88 (104) 100 09/09/18 09:00 Nasal Cannula 2.0 Nasal Cannula 2.0 09/09/18 08:39 72 09/09/18 08:00 97.7 72 17 141/91 (108) 100 09/09/18 07:42 72 18 99 Nasal Cannula 2.0 09/09/18 07:42 Nasal Cannula 2.0 09/09/18 07:42 99 Nasal Cannula 2.0 09/09/18 07:37 74 16 99 Nasal Cannula 2.0 09/09/18 05:58 150/80 09/09/18 05:57 73 150/80 09/09/18 04:00 97.7 73 18 150/80 (103) 100 09/09/18 03:28 70 20 98 Nasal Cannula 2.0 28 09/09/18 03:17 70 18 98 Nasal Cannula 2.0 28 09/09/18 00:00 97.6 81 20 146/80 (102) 98 09/08/18 21:52 156/87 09/08/18 21:51 72 156/87 09/08/18 21:48 75 20 98 Nasal Cannula 2.0 28 09/08/18 21:36 Nasal Cannula 2.0 28 09/08/18 21:36 72 18 98 Nasal Cannula 2.0 28 09/08/18 21:36 98 Nasal Cannula 2.0 28 09/08/18 21:00 Nasal Cannula 2.0 Nasal Cannula 2.0 09/08/18 20:00 98.5 74 18 156/87 (110) 99 Intake and Output 09/08/18 09/09/18 18:59 06:59 Intake Total 745 ml 1171.667 ml Balance 745 ml 1171.667 ml Intake Free Water 40 ml IV Total 250 ml 471.667 ml Tube Feeding 495 ml 660 ml Laboratory Tests 09/09/18 09:05: White Blood Count 12.1H, Red Blood Count 4.23, Hemoglobin 13.1, Hematocrit 41.0 , Mean Corpuscular Volume 97, Mean Corpuscular Hemoglobin 31.1H, Mean Corpuscular Hemoglobin Concent 32.1, Red Cell Distribution Width 15.1H, Platelet Count 294, Mean Platelet Volume 6.3L, Neutrophils (%) (Auto) 76.4H, Lymphocytes (%) (Auto) 15.8L, Monocytes (%) (Auto) 5.7, Eosinophils (%) (Auto) 1.5, Basophils (%) (Auto) 0.7, Sodium Level 142, Potassium Level 3.5, Chloride Level 105, Carbon Dioxide Level 29, Anion Gap 8, Blood Urea Nitrogen 13, Creatinine 0.6, Estimat Glomerular Filtration Rate , Glucose Level 141H, Calcium Level 8.5, Phosphorus Level 3.1, Magnesium Level 1.8, Total Bilirubin 0.4, Aspartate Amino Transf (AST/SGOT) 17, Alanine Aminotransferase (ALT/SGPT) 14, Alkaline Phosphatase 77, Total Protein 7.0, Albumin 2.6L, Globulin 4.4, Albumin/Globulin Ratio 0.6L Current Medications Medications (Trade) Dose Ordered Sig/Richard Route PRN Reason Start Time Stop Time Status Last Admin Dose Admin Acetaminophen (Tylenol) 650 mg Q6H PRN GT Mild Pain/Temp > 100.5 09/08/18 16:12 10/05/18 16:11 Apixaban (Eliquis) 5 mg Q12HR GT 09/08/18 21:00 10/08/18 20:59 09/09/18 08:39 Atorvastatin Calcium (Lipitor) 40 mg BEDTIME GT 09/08/18 21:00 10/05/18 20:59 09/08/18 21:51 Digoxin (Lanoxin) 0.125 mg DAILY GT 09/09/18 09:00 10/05/18 12:29 09/09/18 08:39 Hydralazine HCl (Apresoline) 50 mg Q8HR ORAL 09/08/18 22:00 10/05/18 13:59 09/09/18 14:01 Ipratropium [place] (Atrovent) 500 mcg Q6HRT HHN 09/08/18 19:00 09/10/18 18:59 09/09/18 12:50 Lansoprazole (Prevacid) 30 mg DAILY GT 09/09/18 09:00 10/06/18 08:59 09/09/18 08:39 Levetiracetam (Keppra) 750 mg Q12HR NG 09/08/18 21:00 10/05/18 20:59 09/09/18 08:40 Levothyroxine Sodium (Synthroid) 50 mcg DAILY@0630 GT 09/09/18 06:30 10/06/18 06:29 09/09/18 05:58 Magnesium Oxide (Mag-Ox 400mg) 400 mg DAILY GT 09/09/18 09:00 10/05/18 12:29 09/09/18 08:39 Meropenem 1 gm/ Sodium Chloride 55 ml @ 110 mls/hr Q12H IVPB 09/08/18 17:00 09/12/18 16:59 09/09/18 04:07 Quetiapine Fumarate (SEROquel) 12.5 mg Q4H PRN GT agitation 09/08/18 16:30 10/06/18 00:00 Vancomycin HCl (Vanco rx to dose) 1 ea DAILY PRN MISC Per rx protocol 09/09/18 09:00 10/05/18 15:44 Vancomycin/Sodium Chloride 250 ml @ 166.667 mls/hr Q12H IVPB 09/08/18 17:00 09/13/18 16:59 09/09/18 05:58 Verapamil HCl (Calan) 160 mg Q8HR GT 09/08/18 22:00 10/06/18 12:59 09/09/18 14:01 Marques Lau MD Sep 09, 2018 16:04
--- NOTE | 2018-09-09 19:06 | NUR ---
HAND-OFF: Report given to Nancy.
--- NOTE | 2018-09-09 19:30 | NUR ---
NURSE NOTES: Patient asleep in bed, opens eyes on name, with g tube connected to feeding. With purewick connected to suction machine. Call light and needs in reach. Bed in lowest position, lock engaged and alarm on. Will continue to monitor.
[2018-09-09 20:00] VITALS: BP 179/80
[2018-09-09] MEDS: Bactrim-DS 1 tab GT SCH (21:08)
[2018-09-09] MEDS: metroNIDAZOLE 500mg tab GT SCH (21:09)
[2018-09-09] MEDS: Atorvastatin 20mg tab GT SCH (21:09)
[2018-09-09] MEDS ORDERED: LORazepam Inj 2mg/ml 1ml IV PRN (21:20)
--- NOTE | 2018-09-09 21:50 | NUR ---
NURSE NOTES: Patient appeared to be having seizures. Charge nurse Flako made aware. Spoke to Dr. Ramsey and obtained order for Ativan.
--- NOTE | 2018-09-09 22:40 | Cardiology Progress Note ---
Assessment/Plan Status: stable Assessment/Plan ASSESSMENT AND PLAN: 1. Atrial fibrillation with rapid ventricular response. Resume the patient's verapamil 240 mg b.i.d. and discontinue amlodipine. The patient is also on digoxin and is on Eliquis 5 mg b.i.d. for anticoagulation purposes. 2. Status post Medtronic pacemaker in 2013. The pacemaker may need to be interrogated. Follow up as outpatient in clinic 3. Hypothyroidism, on Synthroid. 4. Dementia. 5. Dysphagia, status post G-tube. 6. Hyperlipidemia, on Lipitor. 7. Essential hypertension. Continue maximizing her antiarrhythmic therapy with verapamil as the patient has atrial fibrillation with rapid ventricular response. 8. Outpatient stress test 9 .Physical therapy 10. Dispo planning Subjective Cardiovascular: Reports: no symptoms Respiratory: Reports: no symptoms Gastrointestinal/Abdominal: Reports: no symptoms Genitourinary: Reports: no symptoms Subjective COVERAGE FOR TOLUE No acute events, 5 beats vtach, LVEF on echo 55% Patient is alert and oriented x1 opens eyes to name only. No s/s of pain, SOB, or signs of discomforts. Gtube feed tolerated Objective Last 24 Hour Vital Signs Date Time Temp Pulse Resp B/P (MAP) Pulse Ox O2 Delivery O2 Flow Rate FiO2 09/09/18 21:10 179/80 09/09/18 21:09 71 179/80 09/09/18 20:12 Nasal Cannula 2.0 Nasal Cannula 2.0 09/09/18 20:10 79 18 99 Nasal Cannula 2.0 28 09/09/18 20:02 98 Nasal Cannula 2.0 28 09/09/18 20:02 Nasal Cannula 2.0 28 09/09/18 20:00 72 18 98 Nasal Cannula 2.0 28 09/09/18 16:00 98.1 70 19 147/79 (101) 98 09/09/18 14:01 112 158/85 09/09/18 14:01 158/85 09/09/18 12:51 75 16 99 Nasal Cannula 2.0 28 09/09/18 12:45 77 16 97 Nasal Cannula 2.0 28 09/09/18 12:00 98.8 84 19 136/88 (104) 100 09/09/18 09:00 Nasal Cannula 2.0 Nasal Cannula 2.0 09/09/18 08:39 72 09/09/18 08:00 97.7 72 17 141/91 (108) 100 09/09/18 07:42 72 18 99 Nasal Cannula 2.0 28 09/09/18 07:42 Nasal Cannula 2.0 28 09/09/18 07:42 99 Nasal Cannula 2.0 28 09/09/18 07:37 74 16 99 Nasal Cannula 2.0 28 09/09/18 05:58 150/80 09/09/18 05:57 73 150/80 09/09/18 04:00 97.7 73 18 150/80 (103) 100 09/09/18 03:28 70 20 98 Nasal Cannula 2.0 28 09/09/18 03:17 70 18 98 Nasal Cannula 2.0 28 09/09/18 00:00 97.6 81 20 146/80 (102) 98 General Appearance: no apparent distress, alert EENT: PERRL/EOMI, normal ENT inspection, TMs normal, pharynx normal Neck: non-tender, normal alignment, supple, normal inspection, no JVD Rhythm: NSR Cardiovascular: normal peripheral pulses, normal rate, regular rhythm Respiratory/Chest: chest wall non-tender, lungs clear, normal breath sounds Abdomen: normal bowel sounds, non tender, soft, no organomegaly Extremities: normal range of motion, non-tender, normal inspection 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, no motor/sensory deficits Intake and Output 09/08/18 09/09/18 19:00 07:00 Intake Total 550 ml 1171.667 ml Balance 550 ml 1171.667 ml Intake Free Water 40 ml IV Total 471.667 ml Tube Feeding 550 ml 660 ml Laboratory Tests Test 09/09/18 09:05 White Blood Count 12.1 K/UL (4.8-10.8) H Red Blood Count 4.23 M/UL (4.20-5.40) Hemoglobin 13.1 G/DL (12.0-16.0) Hematocrit 41.0 % (37.0-47.0) Mean Corpuscular Volume 97 FL (80-99) Mean Corpuscular Hemoglobin 31.1 PG (27.0-31.0) H Mean Corpuscular Hemoglobin Concent 32.1 G/DL (32.0-36.0) Red Cell Distribution Width 15.1 % (11.6-14.8) H Platelet Count 294 K/UL (150-450) Mean Platelet Volume 6.3 FL (6.5-10.1) L Neutrophils (%) (Auto) 76.4 % (45.0-75.0) H Lymphocytes (%) (Auto) 15.8 % (20.0-45.0) L Monocytes (%) (Auto) 5.7 % (1.0-10.0) Eosinophils (%) (Auto) 1.5 % (0.0-3.0) Basophils (%) (Auto) 0.7 % (0.0-2.0) Sodium Level 142 MMOL/L (136-145) Potassium Level 3.5 MMOL/L (3.5-5.1) Chloride Level 105 MMOL/L (98-107) Carbon Dioxide Level 29 MMOL/L (21-32) Anion Gap 8 mmol/L (5-15) Blood Urea Nitrogen 13 mg/dL (7-18) Creatinine 0.6 MG/DL (0.55-1.30) Estimat Glomerular Filtration Rate mL/min (>60) Glucose Level 141 MG/DL (74-106) H Calcium Level 8.5 MG/DL (8.5-10.1) Phosphorus Level 3.1 MG/DL (2.5-4.9) Magnesium Level 1.8 MG/DL (1.8-2.4) Total Bilirubin 0.4 MG/DL (0.2-1.0) Aspartate Amino Transf (AST/SGOT) 17 U/L (15-37) Alanine Aminotransferase (ALT/SGPT) 14 U/L (12-78) Alkaline Phosphatase 77 U/L (46-116) Total Protein 7.0 G/DL (6.4-8.2) Albumin 2.6 G/DL (3.4-5.0) L Globulin 4.4 g/dL Albumin/Globulin Ratio 0.6 (1.0-2.7) L Marques Hernandez MD Sep 09, 2018 22:40
[2018-09-10 00:25] VITALS: BP 107/66
[2018-09-10] MEDS: Ipratropium 0.02% Inh Soln 2.5ml UD HHN SCH ×4 (01:02→20:10)
[2018-09-10 04:00] VITALS: BP 138/84
[2018-09-10] MEDS: HydrALAZINE 50mg tab ORAL SCH ×3 (05:50→21:14)
[2018-09-10] MEDS: Verapamil 80mg tab GT SCH ×3 (05:50→21:15)
[2018-09-10] MEDS: metroNIDAZOLE 500mg tab GT SCH ×2 (05:50→14:00)
--- NOTE | 2018-09-10 07:39 | NUR ---
HAND-OFF: Report given to KYLE Lucas.
--- NOTE | 2018-09-10 07:50 | NUR ---
NURSE NOTES: Pt received from Sergei WRIGHT, alert and oriented x1 opens eyes to name only, nonverbal. IV site flushing but both of pt's arms are infiltrated and swollen, will DC IV once obtained order for Ativan PRN since per night RN, pt had seizure last night. Gtube feed tolerated - 5mL of gastric residual, no abdominal pain or distention. HOB elevated, suction at bedside. Bed in lowest position, call light and belongings within reach.
[2018-09-10 08:00] VITALS: BP 158/80
[2018-09-10 08:15] LABS: BASOPHILS % (AUTO) 0.5 % (0.0-2.0); EOSINOPHILS % (AUTO) 1.9 % (0.0-3.0); HEMATOCRIT 39.9 % (37.0-47.0); HEMOGLOBIN 12.8 G/DL (12.0-16.0); LYMPHOCYTES % (AUTO) 15.9 % (20.0-45.0); MEAN CORPUSCULAR VOLUME 97 FL (80-99); MONOCYTES % (AUTO) 4.7 % (1.0-10.0); NEUTROPHILS % (AUTO) 76.9 % (45.0-75.0); PLATELET COUNT 302 K/UL (150-450); RED BLOOD COUNT 4.13 M/UL (4.20-5.40); RED CELL DISTRIBUTION WIDTH 14.6 % (11.6-14.8)
--- NOTE | 2018-09-10 08:15 | NUR ---
NURSE NOTES: RN obtained order from Dr. Ramsey for Ativan 0.5 mg IM PRN to replace IVP.
[2018-09-10 08:43] LABS: ANION GAP 8 mmol/L (5-15); BLOOD UREA NITROGEN 16 mg/dL (7-18); CALCIUM 9.1 MG/DL (8.5-10.1); CARBON DIOXIDE 29 MMOL/L (21-32); CHLORIDE 104 MMOL/L (98-107); CREATININE 0.6 MG/DL (0.55-1.30); PHOSPHORUS 3.4 MG/DL (2.5-4.9); POTASSIUM 3.5 MMOL/L (3.5-5.1); SODIUM 141 MMOL/L (136-145)
[2018-09-10] MEDS ORDERED: LORazepam Inj 2mg/ml 1ml IM PRN (09:20)
[2018-09-10] MEDS: levETIRAcetam 500mg/5ml Liquid NG SCH ×2 (09:58→21:15)
[2018-09-10] MEDS: Bactrim-DS 1 tab GT SCH (09:58)
[2018-09-10] MEDS: Magnesium Oxide 400mg tab GT SCH (09:58)
[2018-09-10] MEDS: Eliquis 2.5mg tablet GT SCH ×2 (09:59→21:14)
[2018-09-10] MEDS: Digoxin 0.125mg tab GT SCH (09:59)
[2018-09-10 12:00] VITALS: BP 139/76
--- NOTE | 2018-09-10 12:22 | Cardiac Electrophysiology PN ---
Assessment/Plan Assessment/Plan 1. Atrial fibrillation with rapid ventricular response. On verapamil 160 q 8 hrs , digoxin and Eliquis 5 mg b.i.d. 2. Status post Medtronic pacemaker in 2013. 3. Hypothyroidism, on Synthroid. 4. Dementia. 5. Dysphagia, status post G-tube. 6. Hyperlipidemia, on Lipitor. 7. Essential hypertension. On Verapamil 8. PNA on Abx per Dr ross EVANS RN Subjective Subjective Awaiting DC to [facility] Objective Last 24 Hour Vital Signs Date Time Temp Pulse Resp B/P (MAP) Pulse Ox O2 Delivery O2 Flow Rate FiO2 09/10/18 09:59 70 09/10/18 09:00 Nasal Cannula 2.0 Nasal Cannula 2.0 09/10/18 08:06 72 20 100 Nasal Cannula 2.0 28 09/10/18 08:00 97.8 70 17 158/80 (106) 94 09/10/18 07:58 100 Nasal Cannula 2.0 28 09/10/18 07:58 Nasal Cannula 2.0 28 09/10/18 07:56 69 20 100 Nasal Cannula 2.0 28 09/10/18 05:50 113 138/84 09/10/18 05:50 138/84 09/10/18 04:00 97.7 76 18 138/84 (102) 98 09/10/18 01:09 72 18 98 Nasal Cannula 2.0 28 09/10/18 01:02 70 18 98 Nasal Cannula 2.0 28 09/10/18 00:25 97.7 69 16 107/66 (80) 98 09/09/18 21:10 179/80 09/09/18 21:09 71 179/80 09/09/18 20:12 Nasal Cannula 2.0 Nasal Cannula 2.0 09/09/18 20:10 79 18 99 Nasal Cannula 2.0 28 09/09/18 20:02 98 Nasal Cannula 2.0 28 09/09/18 20:02 Nasal Cannula 2.0 28 09/09/18 20:00 72 18 98 Nasal Cannula 2.0 28 09/09/18 20:00 97.3 71 20 179/80 (113) 100 09/09/18 16:00 98.1 70 19 147/79 (101) 98 09/09/18 14:01 112 158/85 09/09/18 14:01 158/85 09/09/18 12:51 75 16 99 Nasal Cannula 2.0 28 09/09/18 12:45 77 16 97 Nasal Cannula 2.0 28 Intake and Output 09/09/18 09/10/18 19:00 07:00 Intake Total 863.333 ml 860 ml Balance 863.333 ml 860 ml Intake Free Water 120 ml 200 ml IV Total 83.333 ml Tube Feeding 660 ml 660 ml # Voids 2 Laboratory Tests Test 09/10/18 06:55 White Blood Count 12.0 K/UL (4.8-10.8) H Red Blood Count 4.13 M/UL (4.20-5.40) L Hemoglobin 12.8 G/DL (12.0-16.0) Hematocrit 39.9 % (37.0-47.0) Mean Corpuscular Volume 97 FL (80-99) Mean Corpuscular Hemoglobin 31.0 PG (27.0-31.0) Mean Corpuscular Hemoglobin Concent 32.1 G/DL (32.0-36.0) Red Cell Distribution Width 14.6 % (11.6-14.8) Platelet Count 302 K/UL (150-450) Mean Platelet Volume 5.4 FL (6.5-10.1) L Neutrophils (%) (Auto) 76.9 % (45.0-75.0) H Lymphocytes (%) (Auto) 15.9 % (20.0-45.0) L Monocytes (%) (Auto) 4.7 % (1.0-10.0) Eosinophils (%) (Auto) 1.9 % (0.0-3.0) Basophils (%) (Auto) 0.5 % (0.0-2.0) Sodium Level 141 MMOL/L (136-145) Potassium Level 3.5 MMOL/L (3.5-5.1) Chloride Level 104 MMOL/L (98-107) Carbon Dioxide Level 29 MMOL/L (21-32) Anion Gap 8 mmol/L (5-15) Blood Urea Nitrogen 16 mg/dL (7-18) Creatinine 0.6 MG/DL (0.55-1.30) Estimat Glomerular Filtration Rate mL/min (>60) Glucose Level 127 MG/DL (74-106) H Calcium Level 9.1 MG/DL (8.5-10.1) Phosphorus Level 3.4 MG/DL (2.5-4.9) Magnesium Level 1.9 MG/DL (1.8-2.4) Objective HEAD AND NECK: Showed no JVD. LUNGS: Coarse rhonchi. CARDIOVASCULAR: Regular S1 and S2 with no gallop. Pacemaker is in the left subclavian. ABDOMEN: Soft. Status post post G-tube. EXTREMITIES: 1+ pitting edema. Elijah Wyatt MD Sep 10, 2018 12:22
--- NOTE | 2018-09-10 14:56 | Infectious Diseases Prog Note ---
Assessment/Plan Assessment/Plan ASSESSMENT AND PLAN: 1. esbl e.coli uti, pna, sepsis, leukocytosis - - meropenem and vancomycin on hold since no iv access - on oral abx bactrim and flagyl, no iv access - ? reaction to bactrim with rash and flushing - consider picc line since esbl infection and allergies limits abx options to carbapenems and vancomycin - monitor labs and chest x-ray - chest x-ray improved - clinically stable 2. The patient has history of hypertension. Continue hypertension treatment per Dr. Ramsey. 3. The patient is anemic. 4. Acute renal failure. 5. Dehydration. 6. Intravenous fluids. 7. Hypothyroid. Continue thyroid supplementation per primary. 8. No history of diabetes. 9. The patient has history of dysphagia and gastrostomy tube. 10. Aspiration risk. 11. Cerebrovascular accident. 12. Left hemiparesis. 13. History of metabolic abnormality. 14. History of seizure. 15. Dyslipidemia. 16. Gastroesophageal reflux disease. 17. Acute kidney injury. 18. Congestive heart failure history. 19. Atrial fibrillation. 20. Past medical history noted. 21. The patient has multiple drug allergies including penicillin, however, tolerates meropenem. 22. Social history negative. 23. Family history noncontributory. 24. MAR was noted. 25. Case was discussed with RN. 26. Continue treatment per primary consultants. 27. Orders were noted and entered. Subjective Constitutional: Denies: fever HEENT: Denies: congestion Respiratory: Denies: shortness of breath Cardiovascular: Denies: chest pain Gastrointestinal/Abdominal: Denies: nausea, vomiting, diarrhea Genitourinary: Reports: other - no booker Neurologic: Denies: headache Psychiatric: Denies: depression Skin: Reports: other - ? facial flush, ? early rash Hematologic: Denies: bleeding Musculoskeletal: Denies: pain Allergies: Coded Allergies: CHLORDIAZEPOXIDE (Verified Allergy, Mild, 01/05/10) DIAZEPAM (Verified Allergy, Mild, 01/05/10) HYDROCHLOROTHIAZIDE (Verified Allergy, Mild, 01/05/10) PENICILLIN G (Verified Allergy, Mild, HIVES, 01/05/10) HYDROMORPHONE (Unverified Allergy, Unknown, 02/22/17) MORPHINE (Unverified Allergy, Unknown, 02/22/17) PENICILLINS (Unverified Allergy, Unknown, 02/22/17) Uncoded Allergies: HYDROCHLOROTHIAZIDE (Allergy, Unknown, 02/22/17) Objective Vital Signs Last 24 Hour Vital Signs Date Time Temp Pulse Resp B/P (MAP) Pulse Ox O2 Delivery O2 Flow Rate FiO2 09/10/18 13:16 77 20 100 Nasal Cannula 2.0 28 09/10/18 13:06 70 22 95 Nasal Cannula 2.0 28 09/10/18 09:59 70 09/10/18 09:00 Nasal Cannula 2.0 Nasal Cannula 2.0 09/10/18 08:06 72 20 100 Nasal Cannula 2.0 28 09/10/18 08:00 97.8 70 17 158/80 (106) 94 09/10/18 07:58 100 Nasal Cannula 2.0 28 09/10/18 07:58 Nasal Cannula 2.0 28 09/10/18 07:56 69 20 100 Nasal Cannula 2.0 28 09/10/18 05:50 113 138/84 09/10/18 05:50 138/84 09/10/18 04:00 97.7 76 18 138/84 (102) 98 09/10/18 01:09 72 18 98 Nasal Cannula 2.0 28 09/10/18 01:02 70 18 98 Nasal Cannula 2.0 28 09/10/18 00:25 97.7 69 16 107/66 (80) 98 09/09/18 21:10 179/80 09/09/18 21:09 71 179/80 09/09/18 20:12 Nasal Cannula 2.0 Nasal Cannula 2.0 09/09/18 20:10 79 18 99 Nasal Cannula 2.0 28 09/09/18 20:02 98 Nasal Cannula 2.0 28 09/09/18 20:02 Nasal Cannula 2.0 28 09/09/18 20:00 72 18 98 Nasal Cannula 2.0 28 09/09/18 20:00 97.3 71 20 179/80 (113) 100 09/09/18 16:00 98.1 70 19 147/79 (101) 98 Height (Feet): 5 Height (Inches): 5.00 Weight (Pounds): 253 General Appearance: no acute distress HEENT: normocephalic, atraumatic, anicteric, mucous membranes moist Respiratory/Chest: lungs clear, normal breath sounds, no respiratory distress, no accessory muscle use Cardiovascular: normal rate, regular rhythm, no gallop/murmur, no JVD Abdomen: normal bowel sounds, soft, non tender, no organomegaly, non distended Genitourinary: other - no booker Extremities: no cyanosis Skin: other - + redness noted, ? 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 The left hemidiaphragm is elevated. The pleural spaces are clear. Is a left chest pacemaker again demonstrated Impression: Patchy right basilar infiltrate, likely pneumonia 09/09/18 - chest x-ray: COMPARISON: Chest x-ray dated 09/05/18 FINDINGS: Single frontal view demonstrates unchanged prominent cardiac size. Stable left chest wall pacemaker with leads in place. The lungs are otherwise clear with subtle opacity in the right lower lung zone.. No pleural effusions. The visualized osseous structures are within normal limits. IMPRESSION: Stable prominent cardiac size and left chest wall pacemaker. Improved aeration of the right lower lung zone. Microbiology Date/Time Source Procedure Growth Status 09/05/18 01:00 Blood Blood Culture - Final Staphylococcus Sp Coag Neg Complete 09/09/18 13:50 Sputum Induced Gram Stain - Final Resulted 09/09/18 13:50 Sputum Induced Sputum Culture Pending Resulted 09/05/18 01:20 Urine,Clean Catch Urine Culture - Final Escherichia Coli - Esbl Escherichia Coli Complete 09/05/18 02:30 Rectum - Final NO CARBAPENEM-RESISTANT ENTEROBACTERI... Complete Microbiology Date/Time Source Procedure Growth Status 09/09/18 13:50 Sputum Induced Gram Stain - Final Resulted 09/09/18 13:50 Sputum Induced Sputum Culture Pending Resulted Laboratory Tests Test 09/10/18 06:55 White Blood Count 12.0 K/UL (4.8-10.8) H Red Blood Count 4.13 M/UL (4.20-5.40) L Hemoglobin 12.8 G/DL (12.0-16.0) Hematocrit 39.9 % (37.0-47.0) Mean Corpuscular Volume 97 FL (80-99) Mean Corpuscular Hemoglobin 31.0 PG (27.0-31.0) Mean Corpuscular Hemoglobin Concent 32.1 G/DL (32.0-36.0) Red Cell Distribution Width 14.6 % (11.6-14.8) Platelet Count 302 K/UL (150-450) Mean Platelet Volume 5.4 FL (6.5-10.1) L Neutrophils (%) (Auto) 76.9 % (45.0-75.0) H Lymphocytes (%) (Auto) 15.9 % (20.0-45.0) L Monocytes (%) (Auto) 4.7 % (1.0-10.0) Eosinophils (%) (Auto) 1.9 % (0.0-3.0) Basophils (%) (Auto) 0.5 % (0.0-2.0) Sodium Level 141 MMOL/L (136-145) Potassium Level 3.5 MMOL/L (3.5-5.1) Chloride Level 104 MMOL/L (98-107) Carbon Dioxide Level 29 MMOL/L (21-32) Anion Gap 8 mmol/L (5-15) Blood Urea Nitrogen 16 mg/dL (7-18) Creatinine 0.6 MG/DL (0.55-1.30) Estimat Glomerular Filtration Rate mL/min (>60) Glucose Level 127 MG/DL (74-106) H Calcium Level 9.1 MG/DL (8.5-10.1) Phosphorus Level 3.4 MG/DL (2.5-4.9) Magnesium Level 1.9 MG/DL (1.8-2.4) Current Medications Medications (Trade) Dose Ordered Sig/Richard Route PRN Reason Start Time Stop Time Status Last Admin Dose Admin Acetaminophen (Tylenol) 650 mg Q6H PRN GT Mild Pain/Temp > 100.5 09/08/18 16:12 10/05/18 16:11 Apixaban (Eliquis) 5 mg Q12HR GT 09/08/18 21:00 10/08/18 20:59 09/10/18 09:59 Atorvastatin Calcium (Lipitor) 40 mg BEDTIME GT 09/08/18 21:00 10/05/18 20:59 09/09/18 21:09 Digoxin (Lanoxin) 0.125 mg DAILY GT 09/09/18 09:00 10/05/18 12:29 09/10/18 09:59 Hydralazine HCl (Apresoline) 50 mg Q8HR ORAL 09/08/18 22:00 10/05/18 13:59 09/10/18 05:50 Ipratropium [place] (Atrovent) 500 mcg Q6HRT HHN 09/08/18 19:00 09/10/18 18:59 09/10/18 13:06 Lansoprazole (Prevacid) 30 mg DAILY GT 09/09/18 09:00 10/06/18 08:59 09/10/18 09:59 Levetiracetam (Keppra) 750 mg Q12HR NG 09/08/18 21:00 10/05/18 20:59 09/10/18 09:58 Levothyroxine Sodium (Synthroid) 50 mcg DAILY@0630 GT 09/09/18 06:30 10/06/18 06:29 09/10/18 05:50 Lorazepam (Ativan 2mg/ml 1ml) 0.5 mg Q6H PRN IM For Anxiety 09/10/18 09:20 09/16/18 21:19 Magnesium Oxide (Mag-Ox 400mg) 400 mg DAILY GT 09/09/18 09:00 10/05/18 12:29 09/10/18 09:58 Meropenem 1 gm/ Sodium Chloride 55 ml @ 110 mls/hr Q12H IVPB 09/08/18 17:00 09/12/18 16:59 Future Hold 09/09/18 16:23 Metronidazole (Flagyl) 500 mg Q8HR GT 09/09/18 22:00 09/10/18 23:59 09/10/18 05:50 Quetiapine Fumarate (SEROquel) 12.5 mg Q4H PRN GT agitation 09/08/18 16:30 10/06/18 00:00 Trimethoprim/ Sulfamethoxazole (Bactrim-DS) 1 tab Q12HR GT 09/09/18 21:00 09/10/18 23:59 09/10/18 09:58 Vancomycin HCl (Vanco rx to dose) 1 ea DAILY PRN MISC Per rx protocol 09/09/18 09:00 10/05/18 15:44 Vancomycin/Sodium Chloride 250 ml @ 166.667 mls/hr Q12H IVPB 09/08/18 17:00 09/13/18 16:59 Future Hold 09/09/18 05:58 Verapamil HCl (Calan) 160 mg Q8HR GT 09/08/18 22:00 10/06/18 12:59 09/10/18 05:50 Kaden Obrien MD Sep 10, 2018 14:56
[2018-09-10] MEDS ORDERED: Lidocaine 1% Plain 30 ml INJ PRN (15:00)
[2018-09-10] MEDS ORDERED: Heparin 2000 units/Ns 1000ml INJ PRN (15:00)
--- NOTE | 2018-09-10 15:15 | NUR ---
NURSE NOTES: RN entered room with Dr. Obrien and Carlos Alberto CHOUDHARY and found pt's face was reddened with temp of 98.[address]. [address] Obrien, it's possible that pt may have reaction with Bactrim PO so it's necessary to have the pt placed on IV abx stat. Dr. Denson put in order for PICC Line placement stat, RN and Jessica CHONG obtained telephone consent with pt's family member - Geraldine Chawla.
--- NOTE | 2018-09-10 16:24 | Pulmonology Progress Note ---
Assessment/Plan Assessment/Plan Pulmonary Progress Note HPI Patient presents from nursing facility with reports of being'sick' This is what the paramedics reported Patient herself appears to have had a previous large CVA Is nonverbal Noted to have Pneumonia on CXR History of present illness is significantly limited There was a report that the patient had been just recently transferred to the nursing facility from another hospitalization Allergies: Coded Allergies: CHLORDIAZEPOXIDE (Verified Allergy, Mild, 01/05/10) DIAZEPAM (Verified Allergy, Mild, 01/05/10) HYDROCHLOROTHIAZIDE (Verified Allergy, Mild, 01/05/10) PENICILLIN G (Verified Allergy, Mild, HIVES, 01/05/10) HYDROMORPHONE (Unverified Allergy, Unknown, 02/22/17) MORPHINE (Unverified Allergy, Unknown, 02/22/17) PENICILLINS (Unverified Allergy, Unknown, 02/22/17) Uncoded Allergies: HYDROCHLOROTHIAZIDE (Allergy, Unknown, 02/22/17) Patient History Limited by: medical condition Past Medical History: see triage record Pertinent Family History: unable to obtain Reviewed Nursing Documentation: PMH: Agreed; PSxH: Agreed Nursing Documentation-PMH Hx Cardiac Problems: Yes - CHF, paroxysmal a-fib, hypothyroidism, chronic iron deficiency anemia Hx Hypertension: Yes Hx Pacemaker: Yes History Of Psychiatric Problem: Yes - Depression degenerative disease of basal ganglia Hx Neurological Problems: Yes - Muscle weakness, ankle contracture, quadriplegia, metabolic encephalopathy, Hx Cerebrovascular Accident: Yes Hx Seizures: Yes Review of Systems All Other Systems: limited - Other than the ones mentioned in the history of present illness all others are reviewed however they do stay limited due to the patient's mental status Physical Exam Vital Signs Noted Sp02 EP Interpretation: reviewed, normal General Appearance: mild distress Head: atraumatic Eyes: bilateral eye PERRL ENT: dry mucus membranes Neck: supple Respiratory: crackles, other - Mildly tachypneic Cardiovascular #1: irregularly irregular Gastrointestinal: non tender, soft Musculoskeletal: other - Patient chronically debilitated, left hand is extended , does not follow commands Neurologic: responsive - To physical stimuli Skin: pallor Lymphatic: no adenopathy Impression: Primary Impression: Pneumonia, Sepsis Atrial fibrillation with RVR UTI (urinary tract infection) CHF, paroxysmal a-fib Hypothyroidism Chronic iron deficiency anemia HTN PPM Previous CVA, basal ganglia disease Seizure History Hx Hypertension: Yes Hx Pacemaker: Yes History Of Psychiatric Problem: Yes - Depression degenerative disease of basal ganglia Hx Neurological Problems: Yes - Muscle weakness, ankle contracture, quadriplegia, metabolic encephalopathy, Hx Cerebrovascular Accident: Yes Hx Seizures: Yes ER Course Patient is a fairly complex patient with multiple differential to consideration including but not limited to cardiac cardiopulmonary and vascular emergencies Patient required IV hydration and antibiotics Sepsis reexamination Time: Reevaluation VS refer to nursing note cvs: RRR respiratory: improved respiration peripheral pulses: 2+radial cap refill:<2 seconds skin exam: warm, dry, not mottled Patient continues to be in critical condition and admitted for further care Labs Test 09/05/18 01:00 09/05/18 01:20 09/05/18 03:00 White Blood Count 15.1 K/UL (4.8-10.8) Red Blood Count 5.40 M/UL (4.20-5.40) Hemoglobin 16.4 G/DL (12.0-16.0) Hematocrit 51.4 % (37.0-47.0) Mean Corpuscular Volume 95 FL (80-99) Mean Corpuscular Hemoglobin 30.4 PG (27.0-31.0) Mean Corpuscular Hemoglobin Concent 31.9 G/DL (32.0-36.0) Red Cell Distribution Width 14.4 % (11.6-14.8) Platelet Count 292 K/UL (150-450) Mean Platelet Volume 6.0 FL (6.5-10.1) Neutrophils (%) (Auto) % (45.0-75.0) Lymphocytes (%) (Auto) % (20.0-45.0) Monocytes (%) (Auto) % (1.0-10.0) Eosinophils (%) (Auto) % (0.0-3.0) Basophils (%) (Auto) % (0.0-2.0) Sodium Level 140 MMOL/L (136-145) Potassium Level 3.8 MMOL/L (3.5-5.1) Chloride Level 99 MMOL/L (98-107) Carbon Dioxide Level 31 MMOL/L (21-32) Anion Gap 10 mmol/L (5-15) Blood Urea Nitrogen 18 mg/dL (7-18) Creatinine 0.8 MG/DL (0.55-1.30) Estimat Glomerular Filtration Rate mL/min (>60) Glucose Level 138 MG/DL (74-106) Lactic Acid Level 3.50 mmol/L (0.4-2.0) 1.90 mmol/L (0.66-2.22) Calcium Level 9.7 MG/DL (8.5-10.1) Total Bilirubin 0.9 MG/DL (0.2-1.0) Aspartate Amino Transf (AST/SGOT) 24 U/L (15-37) Alanine Aminotransferase (ALT/SGPT) 19 U/L (12-78) Alkaline Phosphatase 102 U/L (46-116) Total Creatine Kinase 82 U/L (26-308) Creatine Kinase MB 1.5 NG/ML (0.0-3.6) Creatine Kinase MB Relative Index 1.8 Troponin I 0.033 ng/mL (0.000-0.056) Pro-B-Type Natriuretic Peptide 640 pg/mL (0-125) Total Protein 9.1 G/DL (6.4-8.2) Albumin 3.4 G/DL (3.4-5.0) Globulin 5.7 g/dL Albumin/Globulin Ratio 0.6 (1.0-2.7) Lipase 187 U/L (73-393) Urine Color Yellow Urine Appearance Cloudy Urine pH 7 (4.5-8.0) Urine Specific [place] 1.010 (1.005-1.035) Urine Protein 3+ (NEGATIVE) Urine Glucose (UA) Negative (NEGATIVE) Urine Ketones Negative (NEGATIVE) Urine Blood 3+ (NEGATIVE) Urine Nitrite Positive (NEGATIVE) Urine Bilirubin Negative (NEGATIVE) Urine Urobilinogen 1 MG/DL (0.0-1.0) Urine Leukocyte Esterase 3+ (NEGATIVE) Urine RBC 10-15 /HPF (0 - 2) Urine WBC 60-80 /HPF (0 - 2) Urine Squamous Epithelial Cells Moderate /LPF (NONE/OCC) Urine Bacteria Many /HPF (NONE) EKG Diagnostic Results Rate: tachycardiac Rhythm: other - afib ST Segments: other - Nonspecific ST changes Rhythm Strip Diag. Results EP Interpretation: yes Rate: 80 Rhythm: no PVC's, no ectopy, other - Atrial fibrillation Chest X-Ray Diagnostic Results Chest X-Ray Diagnostic Results : Chest X-Ray Ordered: Yes # of Views/Limited/Complete: 1 View Indication: Chest Pain EP Interpretation: Yes Interpretation: no effusion, no pneumothorax, other - Right-sided marking concerning for infiltrated Impression: Other - Right-sided marking possible pneumonia Subjective ROS Limited/Unobtainable: No Allergies: Coded Allergies: CHLORDIAZEPOXIDE (Verified Allergy, Mild, 01/05/10) DIAZEPAM (Verified Allergy, Mild, 01/05/10) HYDROCHLOROTHIAZIDE (Verified Allergy, Mild, 01/05/10) PENICILLIN G (Verified Allergy, Mild, HIVES, 01/05/10) HYDROMORPHONE (Unverified Allergy, Unknown, 02/22/17) MORPHINE (Unverified Allergy, Unknown, 02/22/17) PENICILLINS (Unverified Allergy, Unknown, 02/22/17) Uncoded Allergies: HYDROCHLOROTHIAZIDE (Allergy, Unknown, 02/22/17) Objective Last 24 Hour Vital Signs Date Time Temp Pulse Resp B/P (MAP) Pulse Ox O2 Delivery O2 Flow Rate FiO2 09/10/18 13:16 77 20 100 Nasal Cannula 2.0 28 09/10/18 13:06 70 22 95 Nasal Cannula 2.0 28 09/10/18 12:00 98.0 71 17 139/76 (97) 96 09/10/18 09:59 70 09/10/18 09:00 Nasal Cannula 2.0 Nasal Cannula 2.0 09/10/18 08:06 72 20 100 Nasal Cannula 2.0 28 09/10/18 08:00 97.8 70 17 158/80 (106) 94 09/10/18 07:58 100 Nasal Cannula 2.0 09/10/18 07:58 Nasal Cannula 2.0 09/10/18 07:56 69 20 100 Nasal Cannula 2.0 28 09/10/18 05:50 113 138/84 09/10/18 05:50 138/84 09/10/18 04:00 97.7 76 18 138/84 (102) 98 09/10/18 01:09 72 18 98 Nasal Cannula 2.0 28 09/10/18 01:02 70 18 98 Nasal Cannula 2.0 28 09/10/18 00:25 97.7 69 16 107/66 (80) 98 09/09/18 21:10 179/80 09/09/18 21:09 71 179/80 09/09/18 20:12 Nasal Cannula 2.0 Nasal Cannula 2.0 09/09/18 20:10 79 18 99 Nasal Cannula 2.0 28 09/09/18 20:02 98 Nasal Cannula 2.0 28 09/09/18 20:02 Nasal Cannula 2.0 28 09/09/18 20:00 72 18 98 Nasal Cannula 2.0 28 09/09/18 20:00 97.3 71 20 179/80 (113) 100 Intake and Output 09/09/18 09/10/18 18:59 06:59 Intake Total 863.333 ml 860 ml Balance 863.333 ml 860 ml Intake Free Water 120 ml 200 ml IV Total 83.333 ml Tube Feeding 660 ml 660 ml # Voids 2 Microbiology Date/Time Source Procedure Growth Status 09/09/18 13:50 Sputum Induced Gram Stain - Final Resulted 09/09/18 13:50 Sputum Induced Sputum Culture Pending Resulted Laboratory Tests 09/10/18 06:55: White Blood Count 12.0H, Red Blood Count 4.13L, Hemoglobin 12.8, Hematocrit 39.9 , Mean Corpuscular Volume 97, Mean Corpuscular Hemoglobin 31.0, Mean Corpuscular Hemoglobin Concent 32.1, Red Cell Distribution Width 14.6, Platelet Count 302, Mean Platelet Volume 5.4L, Neutrophils (%) (Auto) 76.9H, Lymphocytes (%) (Auto) 15.9L, Monocytes (%) (Auto) 4.7, Eosinophils (%) (Auto) 1.9, Basophils (%) (Auto) 0.5, Sodium Level 141, Potassium Level 3.5, Chloride Level 104, Carbon Dioxide Level 29, Anion Gap 8, Blood Urea Nitrogen 16, Creatinine 0.6, Estimat Glomerular Filtration Rate , Glucose Level 127H, Calcium Level 9.1 , Phosphorus Level 3.4, Magnesium Level 1.9 Current Medications Medications (Trade) Dose Ordered Sig/Richard Route PRN Reason Start Time Stop Time Status Last Admin Dose Admin Acetaminophen (Tylenol) 650 mg Q6H PRN GT Mild Pain/Temp > 100.5 09/08/18 16:12 10/05/18 16:11 Apixaban (Eliquis) 5 mg Q12HR GT 09/08/18 21:00 10/08/18 20:59 09/10/18 09:59 Atorvastatin Calcium (Lipitor) 40 mg BEDTIME GT 09/08/18 21:00 10/05/18 20:59 09/09/18 21:09 Chlorhexidine Gluconate (Renetta-Hex 2%) 1 applic DAILY@2000 TOPIC 09/10/18 20:00 10/10/18 19:59 Digoxin (Lanoxin) 0.125 mg DAILY GT 09/09/18 09:00 10/05/18 12:29 09/10/18 09:59 Heparin Sodium/ Sodium Chloride (Heparin 2000 units/Ns 1000ml premix) 2,000 unit ONCE PRN INJ PICC PLACEMENT 09/10/18 15:00 09/11/18 23:59 Hydralazine HCl (Apresoline) 50 mg Q8HR ORAL 09/08/18 22:00 10/05/18 13:59 09/10/18 05:50 Ipratropium [place] (Atrovent) 500 mcg Q6HRT HHN 09/08/18 19:00 09/10/18 18:59 09/10/18 13:06 Lansoprazole (Prevacid) 30 mg DAILY GT 09/09/18 09:00 10/06/18 08:59 09/10/18 09:59 Levetiracetam (Keppra) 750 mg Q12HR NG 09/08/18 21:00 10/05/18 20:59 09/10/18 09:58 Levothyroxine Sodium (Synthroid) 50 mcg DAILY@0630 GT 09/09/18 06:30 10/06/18 06:29 09/10/18 05:50 Lidocaine HCl (Xylocaine 1% 30ml) 30 ml ONCE PRN INJ PICC PLACEMENT 09/10/18 15:00 09/11/18 23:59 Lorazepam (Ativan 2mg/ml 1ml) 0.5 mg Q6H PRN IM For Anxiety 09/10/18 09:20 09/16/18 21:19 Magnesium Oxide (Mag-Ox 400mg) 400 mg DAILY GT 09/09/18 09:00 10/05/18 12:29 09/10/18 09:58 Meropenem 1 gm/ Sodium Chloride 55 ml @ 110 mls/hr Q12H IVPB 09/08/18 17:00 09/12/18 16:59 Future hold 09/09/18 16:23 Quetiapine Fumarate (SEROquel) 12.5 mg Q4H PRN GT agitation 09/08/18 16:30 10/06/18 00:00 Vancomycin HCl (Vanco rx to dose) 1 ea DAILY PRN MISC Per rx protocol 09/09/18 09:00 10/05/18 15:44 Vancomycin/Sodium Chloride 250 ml @ 166.667 mls/hr Q12H IVPB 09/08/18 17:00 09/13/18 16:59 Future hold 09/09/18 05:58 Verapamil HCl (Calan) 160 mg Q8HR GT 09/08/18 22:00 10/06/18 12:59 09/10/18 05:50 Marques Lau MD Sep 10, 2018 16:24
--- NOTE | 2018-09-10 16:56 | Diagnostic Imaging Report ---
Indications: Needs long-term IV access Technique: Informed consent obtained by the primary team. Ultrasound confirms patent compressible right basilic vein. Total sterile technique, including sterile probe cover and sterile gel, hat, mask,, sterile gown, large sterile drape, and preparation with 2% chlorhexidine utilized. Local anesthesia with 1% lidocaine. Under real-time ultrasound guidance, puncture right basilic vein using 21-gauge needle, documented and archived, passage 0.018 guidewire under direct fluoroscopy, which was used to determine appropriate catheter length, exchange for 5 [place] peel-away sheath. 5 [place] dual-lumen power PICC cut to 42 cm. It was inserted through the peel-away sheath. Peel-away sheath and guidewire removed. Catheter fixed to the skin. Both catheter ports aspirated and flushed. Patient tolerated procedure well, without immediate complication. Digital radiograph documents satisfactory catheter tip position, at the cavoatrial junction. Total fluoroscopy time 109.5 minutes. Total [place] dose 13.92 mGy Impression: Successful placement of 5 [place] double-lumen PICC under sonographic and fluoroscopic guidance, as described above. Catheter cleared for immediate use.
--- NOTE | 2018-09-10 17:02 | Internal Med Progress Note ---
Subjective Physician Name Joshua Ramsey Attending Physician Joshua Ramsey MD Current Medications Medications (Trade) Dose Ordered Sig/Richard Route PRN Reason Start Time Stop Time Status Last Admin Dose Admin Acetaminophen (Tylenol) 650 mg Q6H PRN GT Mild Pain/Temp > 100.5 09/08/18 16:12 10/05/18 16:11 Apixaban (Eliquis) 5 mg Q12HR GT 09/08/18 21:00 10/08/18 20:59 09/10/18 09:59 Atorvastatin Calcium (Lipitor) 40 mg BEDTIME GT 09/08/18 21:00 10/05/18 20:59 09/09/18 21:09 Chlorhexidine Gluconate (Renetta-Hex 2%) 1 applic DAILY@1999 TOPIC 09/10/18 20:00 10/10/18 19:59 Digoxin (Lanoxin) 0.125 mg DAILY GT 09/09/18 09:00 10/05/18 12:29 09/10/18 09:59 Heparin Sodium/ Sodium Chloride (Heparin 2000 units/Ns 1000ml premix) 2,000 unit ONCE PRN INJ PICC PLACEMENT 09/10/18 15:00 09/11/18 23:59 Hydralazine HCl (Apresoline) 50 mg Q8HR ORAL 09/08/18 22:00 10/05/18 13:59 09/10/18 05:50 Ipratropium [place] (Atrovent) 500 mcg Q6HRT HHN 09/08/18 19:00 09/10/18 18:59 09/10/18 13:06 Lansoprazole (Prevacid) 30 mg DAILY GT 09/09/18 09:00 10/06/18 08:59 09/10/18 09:59 Levetiracetam (Keppra) 750 mg Q12HR NG 09/08/18 21:00 10/05/18 20:59 09/10/18 09:58 Levothyroxine Sodium (Synthroid) 50 mcg DAILY@0630 GT 09/09/18 06:30 10/06/18 06:29 09/10/18 05:50 Lidocaine HCl (Xylocaine 1% 30ml) 30 ml ONCE PRN INJ PICC PLACEMENT 09/10/18 15:00 09/11/18 23:59 Lorazepam (Ativan 2mg/ml 1ml) 0.5 mg Q6H PRN IM For Anxiety 09/10/18 09:20 09/16/18 21:19 Magnesium Oxide (Mag-Ox 400mg) 400 mg DAILY GT 09/09/18 09:00 10/05/18 12:29 09/10/18 09:58 Meropenem 1 gm/ Sodium Chloride 55 ml @ 110 mls/hr Q12H IVPB 09/08/18 17:00 09/12/18 16:59 Future hold 09/09/18 16:23 Quetiapine Fumarate (SEROquel) 12.5 mg Q4H PRN GT agitation 09/08/18 16:30 10/06/18 00:00 Vancomycin HCl (Vanco rx to dose) 1 ea DAILY PRN MISC Per rx protocol 09/09/18 09:00 10/05/18 15:44 Vancomycin/Sodium Chloride 250 ml @ 166.667 mls/hr Q12H IVPB 09/08/18 17:00 09/13/18 16:59 Future hold 09/09/18 05:58 Verapamil HCl (Calan) 160 mg Q8HR GT 09/08/18 22:00 10/06/18 12:59 09/10/18 05:50 Allergies: Coded Allergies: CHLORDIAZEPOXIDE (Verified Allergy, Mild, 01/05/10) DIAZEPAM (Verified Allergy, Mild, 01/05/10) HYDROCHLOROTHIAZIDE (Verified Allergy, Mild, 01/05/10) PENICILLIN G (Verified Allergy, Mild, HIVES, 01/05/10) HYDROMORPHONE (Unverified Allergy, Unknown, 02/22/17) MORPHINE (Unverified Allergy, Unknown, 02/22/17) PENICILLINS (Unverified Allergy, Unknown, 02/22/17) Uncoded Allergies: HYDROCHLOROTHIAZIDE (Allergy, Unknown, 02/22/17) Subjective awake, responsive with open eyes, not verbal, NAD, episode of SZ last night? Objective Last Vital Signs Date Time Temp Pulse Resp B/P (MAP) Pulse Ox O2 Delivery O2 Flow Rate FiO2 09/10/18 13:16 77 20 100 Nasal Cannula 2.0 28 09/10/18 12:00 98.0 139/76 (97) Laboratory Tests Test 09/10/18 06:55 White Blood Count 12.0 K/UL (4.8-10.8) H Red Blood Count 4.13 M/UL (4.20-5.40) L Hemoglobin 12.8 G/DL (12.0-16.0) Hematocrit 39.9 % (37.0-47.0) Mean Corpuscular Volume 97 FL (80-99) Mean Corpuscular Hemoglobin 31.0 PG (27.0-31.0) Mean Corpuscular Hemoglobin Concent 32.1 G/DL (32.0-36.0) Red Cell Distribution Width 14.6 % (11.6-14.8) Platelet Count 302 K/UL (150-450) Mean Platelet Volume 5.4 FL (6.5-10.1) L Neutrophils (%) (Auto) 76.9 % (45.0-75.0) H Lymphocytes (%) (Auto) 15.9 % (20.0-45.0) L Monocytes (%) (Auto) 4.7 % (1.0-10.0) Eosinophils (%) (Auto) 1.9 % (0.0-3.0) Basophils (%) (Auto) 0.5 % (0.0-2.0) Sodium Level 141 MMOL/L (136-145) Potassium Level 3.5 MMOL/L (3.5-5.1) Chloride Level 104 MMOL/L (98-107) Carbon Dioxide Level 29 MMOL/L (21-32) Anion Gap 8 mmol/L (5-15) Blood Urea Nitrogen 16 mg/dL (7-18) Creatinine 0.6 MG/DL (0.55-1.30) Estimat Glomerular Filtration Rate mL/min (>60) Glucose Level 127 MG/DL (74-106) H Calcium Level 9.1 MG/DL (8.5-10.1) Phosphorus Level 3.4 MG/DL (2.5-4.9) Magnesium Level 1.9 MG/DL (1.8-2.4) Microbiology Date/Time Source Procedure Growth Status 09/09/18 13:50 Sputum Induced Gram Stain - Final Resulted 09/09/18 13:50 Sputum Induced Sputum Culture Pending Resulted Intake and Output 09/09/18 09/10/18 19:00 07:00 Intake Total 863.333 ml 860 ml Balance 863.333 ml 860 ml Intake Free Water 120 ml 200 ml IV Total 83.333 ml Tube Feeding 660 ml 660 ml # Voids 2 Objective General: No acute distress, awake and responsive with open eyes, not verbal. HEENT: NCAT, sclera anicteric, PERRLA. Left eye less erythema. Neck: Supple, no significant jugular venous distention, Lungs: Fair inspiratory effort, decrease air on bases no Wheeze. Heart: Regular rate and rhythm, normal S1/S2, no murmurs. Abdomen: soft, nontender, nondistended. Normoactive bowel sounds. +PEG Extremities: No Cyanosis , clubbing or edema. Neuro: Very limited secondary to the patient's status. Contraction of upper extremities as well as lower extremity functional quadriplegia as well as weakness on the left side greater than right side. Skin: warm, no rashes. Assessment/Plan Assessment/Plan ASSESSMENT: 1. Sepsis secondary to pneumonia. 2. Atrial fibrillation with rapid ventricular rate. 3. Lactic acidosis. 4. Functional quadriplegia. 5. E. Coli ESBL Urinary tract infection. 6. Hypothyroidism. 7. Chronic iron deficiency anemia. 8. Hypertension. 9. Sick sinus syndrome/pacemaker. 10. Basal ganglia cerebrovascular accident with hemiparesis. 11. Seizure disorder. 12. Morbid obesity. 13. Dysphagia status post percutaneous endoscopic gastrostomy. PLAN: in Medical Unit. Full Code. Broad-spectrum antibiotics: Vancomycin and Imipenem, DC Bactrim Dr. Wyatt from Cardiology Electrophysiology Dr. Marques Lau from Pulmonary Critical monitor Labs and cultures. DC Planning to SNF in AM. Piccline placement Joshua Ramsey M.D. Joshua Ramsey MD Sep 10, 2018 17:02
--- NOTE | 2018-09-10 17:08 | NUR ---
CASE MANAGEMENT:REVIEW 09/10/18 SI: SEPSIS. UTI. PNA 97.8 70 17 158/80 100% ON 2L/NC WBC+12.0 IS: IV MEROPENEM Q12 IV VANCOMYCIN Q12 ELIQUIS GT Q12 VERAPAMIL GT Q8HRS HYDRALAZINE GT Q8HRS DIGOXIN GT QD : TELEMETRY STATUS DCP: PATIENT IS FROM [facility] PLAN: PICC LINE PLACEMENT
[2018-09-10] MEDS: Meropenem 1 GM in NS 55 ML IVPB SCH (18:36)
[2018-09-10] MEDS: Vancomycin 750mg/NS 250ml 250 ML IVPB SCH (18:36)
--- NOTE | 2018-09-10 19:36 | NUR ---
HAND-OFF: Report given to KYLE Mai.
[2018-09-10 20:00] VITALS: BP 147/88
--- NOTE | 2018-09-10 20:10 | NUR ---
RESPIRATORY NOTE: ATROVENT NOT GIVEN DUE TO IT NOT BEING AVAILABLE FROM 1900 TO 1999. PT. IN STABLE CONDITION. ALL VS WNL.
--- NOTE | 2018-09-10 20:22 | NUR ---
NURSE NOTES: Receive Addendum: 09/10/18 at 2022 by Laine Woods RN [email or web address]
--- NOTE | 2018-09-10 20:22 | General Progress Note ---
Assessment/Plan Problem List: (1) Dementia ICD Codes: F03.90 - Unspecified dementia without behavioral disturbance SNOMED: [id number] (2) encephalopathy with metabolic factor Assessment/Plan dc valium seroquel prn admitting orders were placed Subjective Neurologic/Psychiatric: Reports: anxiety Allergies: Coded Allergies: CHLORDIAZEPOXIDE (Verified Allergy, Mild, 01/05/10) DIAZEPAM (Verified Allergy, Mild, 01/05/10) HYDROCHLOROTHIAZIDE (Verified Allergy, Mild, 01/05/10) PENICILLIN G (Verified Allergy, Mild, HIVES, 01/05/10) HYDROMORPHONE (Unverified Allergy, Unknown, 02/22/17) MORPHINE (Unverified Allergy, Unknown, 02/22/17) PENICILLINS (Unverified Allergy, Unknown, 02/22/17) Uncoded Allergies: HYDROCHLOROTHIAZIDE (Allergy, Unknown, 02/22/17) Objective Last 24 Hour Vital Signs Date Time Temp Pulse Resp B/P (MAP) Pulse Ox O2 Delivery O2 Flow Rate FiO2 09/10/18 13:16 77 20 100 Nasal Cannula 2.0 28 09/10/18 13:06 70 22 95 Nasal Cannula 2.0 28 09/10/18 12:00 98.0 71 17 139/76 (97) 96 09/10/18 09:59 70 09/10/18 09:00 Nasal Cannula 2.0 Nasal Cannula 2.0 09/10/18 08:06 72 20 100 Nasal Cannula 2.0 28 09/10/18 08:00 97.8 70 17 158/80 (106) 94 09/10/18 07:58 100 Nasal Cannula 2.0 09/10/18 07:58 Nasal Cannula 2.0 28 09/10/18 07:56 69 20 100 Nasal Cannula 2.0 28 09/10/18 05:50 113 138/84 09/10/18 05:50 138/84 09/10/18 04:00 97.7 76 18 138/84 (102) 98 09/10/18 01:09 72 18 98 Nasal Cannula 2.0 28 09/10/18 01:02 70 18 98 Nasal Cannula 2.0 28 09/10/18 00:25 97.7 69 16 107/66 (80) 98 09/09/18 21:10 179/80 09/09/18 21:09 71 179/80 Intake and Output 09/09/18 09/10/18 18:59 06:59 Intake Total 863.333 ml 860 ml Balance 863.333 ml 860 ml Intake Free Water 120 ml 200 ml IV Total 83.333 ml Tube Feeding 660 ml 660 ml # Voids 2 Laboratory Tests 09/10/18 06:55: White Blood Count 12.0H, Red Blood Count 4.13L, Hemoglobin 12.8, Hematocrit 39.9 , Mean Corpuscular Volume 97, Mean Corpuscular Hemoglobin 31.0, Mean Corpuscular Hemoglobin Concent 32.1, Red Cell Distribution Width 14.6, Platelet Count 302, Mean Platelet Volume 5.4L, Neutrophils (%) (Auto) 76.9H, Lymphocytes (%) (Auto) 15.9L, Monocytes (%) (Auto) 4.7, Eosinophils (%) (Auto) 1.9, Basophils (%) (Auto) 0.5, Sodium Level 141, Potassium Level 3.5, Chloride Level 104, Carbon Dioxide Level 29, Anion Gap 8, Blood Urea Nitrogen 16, Creatinine 0.6, Estimat Glomerular Filtration Rate , Glucose Level 127H, Calcium Level 9.1 , Phosphorus Level 3.4, Magnesium Level 1.9 Height (Feet): 5 Height (Inches): 5.00 Weight (Pounds): 253 General Appearance: alert, confused, agitated Flores Tavares MD Sep 10, 2018 20:22
--- NOTE | 2018-09-10 20:23 | NUR ---
NURSE NOTES: Received patient in bed, patient non verbal but response stimuli. No acute distress noted. Bed alarm is on, bed locked and in low position with HOB, G tube patent. Picc line patent and no filtration noted, Call light in reach and will continue to monitor.
[2018-09-10] MEDS ORDERED: LORazepam Inj 2mg/ml 1ml IV PRN (20:45)
--- NOTE | 2018-09-10 20:50 | NUR ---
NURSE NOTES: Got a renewal order for Regina from Dr. Ramsey and carried out. RT Rosy made aware.
[2018-09-10] MEDS: Atorvastatin 20mg tab GT SCH (21:14)
[2018-09-10] MEDS: Dyna-Hex 2% Top Sol 2oz TOPIC SCH (21:15)
[2018-09-11] VITALS: BP 145/74
[2018-09-11 04:00] VITALS: BP 137/86
[2018-09-11 05:57] LABS: BASOPHILS % (AUTO) 0.8 % (0.0-2.0); HEMATOCRIT 36.9 % (37.0-47.0); HEMOGLOBIN 11.9 G/DL (12.0-16.0); LYMPHOCYTES % (AUTO) 21.1 % (20.0-45.0); MEAN CORPUSCULAR VOLUME 96 FL (80-99); MONOCYTES % (AUTO) 6.1 % (1.0-10.0); PLATELET COUNT 262 K/UL (150-450); RED BLOOD COUNT 3.84 M/UL (4.20-5.40); RED CELL DISTRIBUTION WIDTH 14.4 % (11.6-14.8); WHITE BLOOD COUNT 12.4 K/UL (4.8-10.8)
[2018-09-11] MEDS: Meropenem 1 GM in NS 55 ML IVPB SCH ×2 (05:57→16:57)
[2018-09-11] MEDS: Vancomycin 750mg/NS 250ml 250 ML IVPB SCH (05:58)
[2018-09-11 06:09] LABS: ANION GAP 7 mmol/L (5-15); BLOOD UREA NITROGEN 15 mg/dL (7-18); CALCIUM 8.8 MG/DL (8.5-10.1); CARBON DIOXIDE 31 MMOL/L (21-32); CHLORIDE 103 MMOL/L (98-107); CREATININE 0.6 MG/DL (0.55-1.30); POTASSIUM 3.7 MMOL/L (3.5-5.1); SODIUM 141 MMOL/L (136-145)
[2018-09-11] MEDS: Verapamil 80mg tab GT SCH ×3 (06:13→21:44)
[2018-09-11] MEDS: HydrALAZINE 50mg tab ORAL SCH ×3 (06:14→21:45)
[2018-09-11] MEDS: Ipratropium 0.02% Inh Soln 2.5ml UD HHN SCH ×4 (06:45→21:33)
--- NOTE | 2018-09-11 07:40 | NUR ---
HAND-OFF: Report given to KYLE Saaverda.
[2018-09-11 08:00] VITALS: BP 122/69
--- NOTE | 2018-09-11 08:00 | NUR ---
NURSE NOTES: Patient is alert to name,nonverbal,respirations are unlabored 02 0n by N/C at 2L..G-tube feedings as ordered,abdomen soft no residual noted.G-tube feedings as ordered.HOB is elevated.Bed alarm is on.Call light within reach.
--- NOTE | 2018-09-11 09:15 | NUR ---
RADIOLOGY DEPT CHEST X-RAY DONE.-P.DYE
[2018-09-11] MEDS: Eliquis 2.5mg tablet GT SCH ×2 (09:43→21:42)
[2018-09-11] MEDS: Digoxin 0.125mg tab GT SCH (09:46)
[2018-09-11] MEDS: levETIRAcetam 500mg/5ml Liquid NG SCH ×2 (09:47→21:43)
[2018-09-11] MEDS: Magnesium Oxide 400mg tab GT SCH (09:48)
--- NOTE | 2018-09-11 10:42 | Cardiac Electrophysiology PN ---
Assessment/Plan Assessment/Plan 1. Atrial fibrillation with rapid ventricular response. On verapamil 160 q 8 hrs , digoxin and Eliquis 5 mg b.i.d. 2. Status post [employer] pacemaker in 2013. 3. Hypothyroidism, on Synthroid. 4. Dementia. 5. Dysphagia, status post G-tube. 6. Hyperlipidemia, on Lipitor. 7. Essential hypertension. On Verapamil 8. PNA on Abx per Dr hawkins via PICC line CRISTINA RN Subjective Subjective Got her PICC line yesterday. No Cardiac issues overnight. Awaiting DC to SNIF Objective Last 24 Hour Vital Signs Date Time Temp Pulse Resp B/P (MAP) Pulse Ox O2 Delivery O2 Flow Rate FiO2 09/11/18 09:46 87 09/11/18 09:00 Nasal Cannula 2.0 Nasal Cannula 2.0 09/11/18 08:00 97.6 90 20 122/69 (86) 95 09/11/18 06:56 79 18 99 Nasal Cannula 2.0 28 09/11/18 06:45 76 19 98 Nasal Cannula 2.0 28 09/11/18 06:45 Nasal Cannula 2.0 28 09/11/18 06:45 98 Nasal Cannula 2.0 28 09/11/18 06:14 172/90 09/11/18 06:13 71 172/90 09/11/18 04:00 97.7 70 18 137/86 (103) 95 09/11/18 00:08 77 20 99 Nasal Cannula 2.0 28 09/11/18 00:00 70 20 98 Nasal Cannula 2.0 28 09/11/18 00:00 98.0 71 18 145/74 (97) 100 09/10/18 21:15 70 147/88 09/10/18 21:14 147/88 09/10/18 21:00 Nasal Cannula 2.0 Nasal Cannula 2.0 09/10/18 20:10 70 20 99 Nasal Cannula 2.0 28 09/10/18 20:10 Nasal Cannula 2.0 28 09/10/18 20:10 Nasal Cannula 2.0 28 09/10/18 20:10 70 20 Nasal Cannula 2.0 09/10/18 20:10 99 Nasal Cannula 2.0 28 09/10/18 20:00 98.0 72 16 147/88 (107) 98 09/10/18 13:16 77 20 100 Nasal Cannula 2.0 28 09/10/18 13:06 70 22 95 Nasal Cannula 2.0 28 09/10/18 12:00 98.0 71 17 139/76 (97) 96 Intake and Output 09/10/18 09/11/18 19:00 07:00 Intake Total 320 ml 750 ml Output Total 2300 ml Balance 320 ml -1550 ml Intake Free Water 100 ml 200 ml Tube Feeding 220 ml 550 ml Output Urine Total 2300 ml Laboratory Tests Test 09/11/18 05:30 White Blood Count 12.4 K/UL (4.8-10.8) H Red Blood Count 3.84 M/UL (4.20-5.40) L Hemoglobin 11.9 G/DL (12.0-16.0) L Hematocrit 36.9 % (37.0-47.0) L Mean Corpuscular Volume 96 FL (80-99) Mean Corpuscular Hemoglobin 31.0 PG (27.0-31.0) Mean Corpuscular Hemoglobin Concent 32.3 G/DL (32.0-36.0) Red Cell Distribution Width 14.4 % (11.6-14.8) Platelet Count 262 K/UL (150-450) Mean Platelet Volume 5.6 FL (6.5-10.1) L Neutrophils (%) (Auto) 70.0 % (45.0-75.0) Lymphocytes (%) (Auto) 21.1 % (20.0-45.0) Monocytes (%) (Auto) 6.1 % (1.0-10.0) Eosinophils (%) (Auto) 2.0 % (0.0-3.0) Basophils (%) (Auto) 0.8 % (0.0-2.0) Sodium Level 141 MMOL/L (136-145) Potassium Level 3.7 MMOL/L (3.5-5.1) Chloride Level 103 MMOL/L (98-107) Carbon Dioxide Level 31 MMOL/L (21-32) Anion Gap 7 mmol/L (5-15) Blood Urea Nitrogen 15 mg/dL (7-18) Creatinine 0.6 MG/DL (0.55-1.30) Estimat Glomerular Filtration Rate mL/min (>60) Glucose Level 122 MG/DL (74-106) H Calcium Level 8.8 MG/DL (8.5-10.1) Microbiology Date/Time Source Procedure Growth Status 09/09/18 13:50 Sputum Induced Gram Stain - Final Complete 09/09/18 13:50 Sputum Induced Sputum Culture - Final NORMAL UPPER RESPIRATORY [place]ISA PRESENT Complete Objective HEAD AND NECK: Showed no JVD. LUNGS: Coarse rhonchi. CARDIOVASCULAR: Regular S1 and S2 with no gallop. Pacemaker is in the left subclavian. ABDOMEN: Soft. Status post post G-tube. EXTREMITIES: 1+ pitting edema. Elijah Wyatt MD Sep 11, 2018 10:42
--- NOTE | 2018-09-11 11:04 | NUR ---
RD ASSESSMENT & RECOMMENDATIONS SEE CARE ACTIVITY FOR COMPLETE ASSESSMENT DAILY ESTIMATED NEEDS: Needs based on Wound/ 75.6kg abw 24-30 kcals/kg 4528-2097 total kcals 1.25-1.7 g protein/kg 95-129 g total protein 25-30 mL/kg 4685-3255 total fluid mLs NUTRITION DIAGNOSIS: * Swallowing difficulty R/T dysphagia, h/o CVA as evidenced by pt is PEG dep. * Increased kcal/prot needs R/T wound healing as evidenced by admitted w/ lt hip stage 2 wound. CURRENT TF:Glucerna 1.2 @ 55ml/hr x 22 hrs ENTERAL NUTRITION RECOMMENDATIONS: Glucerna 1.5 @ 55ml/hr x 22 hrs (hold 1 hr before & after Synthroid med) to provide 1210ml, 1815kcal, 100g prot, 974ml free water * Rec TF CHANGE to Glucerna 1.5 for increased kcal/prot needs, carb control, lower volume * Initiate Glucerna 1.5 @ 25ml/hr x 6 hrs, advance 10ml q 4-6 hrs as tolerated to goal rate * Hold 1 hour before and after Synthroid med * HOB over 30 degrees/ water flush per MD ADDITIONAL RECOMMENDATIONS: * Calibrated bedscale wt for accurate CBW * WOUND EVALUATION FOR LT HIP WOUND * Wound care: add Ozzy 1pkt BID * Monitor lytes, replete as needed (K 3.4) * Consider accucheck w/ SSI- h/o DM, PEG dep
--- NOTE | 2018-09-11 11:48 | Diagnostic Imaging Report ---
Indication: Reason For Exam: INFECT Technique: One view of the chest Comparison: 09/09/2018 Findings: Interval placement of a right arm PICC. Catheter tip in the region of the cavoatrial junction. Left-sided pacemaker unchanged. Cardiomegaly is stable. There is pulmonary vascular congestion. No definite focal airspace consolidation. Unchanged elevation of the left hemidiaphragm with streaky left basilar likely atelectasis or scarring. Surgical clips noted in the left neck. Osseous structures stable. Impression: Interval placement of a right arm PICC line. Patchy right basilar opacities most pronounced compared to the prior exam. Cardiomegaly with pulmonary vascular congestion. Unchanged elevation of the left hemidiaphragm with adjacent subtle opacities which may be related to atelectasis or scarring.
[2018-09-11 11:59] VITALS: BP 136/91
--- NOTE | 2018-09-11 15:03 | Infectious Diseases Prog Note ---
Assessment/Plan Assessment/Plan ASSESSMENT AND PLAN: 1. esbl e.coli uti, pna, sepsis, leukocytosis - - meropenem x 7 days, discontinue vancomycin - monitor labs and chest x-ray - chest x-ray stable - clinically stable 2. The patient has history of hypertension. Continue hypertension treatment per Dr. Ramsey. 3. The patient is anemic. 4. Acute renal failure. 5. Dehydration. 6. Intravenous fluids. 7. Hypothyroid. Continue thyroid supplementation per primary. 8. No history of diabetes. 9. The patient has history of dysphagia and gastrostomy tube. 10. Aspiration risk. 11. Cerebrovascular accident. 12. Left hemiparesis. 13. History of metabolic abnormality. 14. History of seizure. 15. Dyslipidemia. 16. Gastroesophageal reflux disease. 17. Acute kidney injury. 18. Congestive heart failure history. 19. Atrial fibrillation. 20. Past medical history noted. 21. The patient has multiple drug allergies including penicillin, however, tolerates meropenem. 22. Social history negative. 23. Family history noncontributory. 24. MAR was noted. 25. Case was discussed with RN. 26. Continue treatment per primary consultants. 27. Orders were noted and entered. Subjective Constitutional: Denies: fever HEENT: Denies: congestion Respiratory: Denies: shortness of breath Cardiovascular: Denies: chest pain Gastrointestinal/Abdominal: Denies: nausea, vomiting, diarrhea Genitourinary: Reports: other - no booker Neurologic: Denies: headache Psychiatric: Denies: depression Skin: Denies: rash Hematologic: Denies: bleeding Musculoskeletal: Denies: pain Allergies: Coded Allergies: CHLORDIAZEPOXIDE (Verified Allergy, Mild, 01/05/10) DIAZEPAM (Verified Allergy, Mild, 01/05/10) HYDROCHLOROTHIAZIDE (Verified Allergy, Mild, 01/05/10) PENICILLIN G (Verified Allergy, Mild, HIVES, 01/05/10) HYDROMORPHONE (Unverified Allergy, Unknown, 02/22/17) MORPHINE (Unverified Allergy, Unknown, 02/22/17) PENICILLINS (Unverified Allergy, Unknown, 02/22/17) Uncoded Allergies: HYDROCHLOROTHIAZIDE (Allergy, Unknown, 02/22/17) Objective Vital Signs Last 24 Hour Vital Signs Date Time Temp Pulse Resp B/P (MAP) Pulse Ox O2 Delivery O2 Flow Rate FiO2 09/11/18 14:36 148/88 09/11/18 14:35 100 148/88 09/11/18 12:57 84 20 99 Nasal Cannula 2.0 28 09/11/18 12:43 82 21 98 Nasal Cannula 2.0 28 09/11/18 11:59 98.3 83 20 136/91 (106) 98 09/11/18 09:46 87 09/11/18 09:00 Nasal Cannula 2.0 Nasal Cannula 2.0 09/11/18 08:00 97.6 90 20 122/69 (86) 95 09/11/18 06:56 79 18 99 Nasal Cannula 2.0 28 09/11/18 06:45 76 19 98 Nasal Cannula 2.0 28 09/11/18 06:45 Nasal Cannula 2.0 28 09/11/18 06:45 98 Nasal Cannula 2.0 28 09/11/18 06:14 172/90 09/11/18 06:13 71 172/90 09/11/18 04:00 97.7 70 18 137/86 (103) 95 09/11/18 00:08 77 20 99 Nasal Cannula 2.0 28 09/11/18 00:00 70 20 98 Nasal Cannula 2.0 28 09/11/18 00:00 98.0 71 18 145/74 (97) 100 09/10/18 21:15 70 147/88 09/10/18 21:14 147/88 09/10/18 21:00 Nasal Cannula 2.0 Nasal Cannula 2.0 09/10/18 20:10 70 20 99 Nasal Cannula 2.0 09/10/18 20:10 Nasal Cannula 2.0 09/10/18 20:10 Nasal Cannula 2.0 28 09/10/18 20:10 70 20 Nasal Cannula 2.0 09/10/18 20:10 99 Nasal Cannula 2.0 28 09/10/18 20:00 98.0 72 16 147/88 (107) 98 Height (Feet): 5 Height (Inches): 5.00 Weight (Pounds): 253 General Appearance: no acute distress HEENT: normocephalic, atraumatic, anicteric, mucous membranes moist Respiratory/Chest: lungs clear, normal breath sounds, no respiratory distress, no accessory muscle use Cardiovascular: normal rate, regular rhythm, no gallop/murmur, no JVD Abdomen: normal bowel sounds, soft, non tender, no organomegaly, non distended Genitourinary: other - no booker Extremities: no cyanosis Skin: no rash Neurologic/Psychiatric: petal cutter II-XII grossly normal, alert, responsive Lymphatic: no neck adenopathy Musculoskeletal: no effusion Objective 09/05/18 - chest x-ray - Technique: One view of the chest Comparison: For 05/11/2009 Findings: There is a patchy infiltrate at the right lung base, not evident previously. The left hemidiaphragm is elevated. The pleural spaces are clear. Is a left chest pacemaker again demonstrated Impression: Patchy right basilar infiltrate, likely pneumonia 09/09/18 - chest x-ray: COMPARISON: Chest x-ray dated 09/05/18 FINDINGS: Single frontal view demonstrates unchanged prominent cardiac size. Stable left chest wall pacemaker with leads in place. The lungs are otherwise clear with subtle opacity in the right lower lung zone.. No pleural effusions. The visualized osseous structures are within normal limits. IMPRESSION: Stable prominent cardiac size and left chest wall pacemaker. Improved aeration of the right lower lung zone. 09/11/18 - chest x-ray: Impression: Interval placement of a right arm PICC line. Patchy right basilar opacities most pronounced compared to the prior exam. Cardiomegaly with pulmonary vascular congestion. Unchanged elevation of the left hemidiaphragm with adjacent subtle opacities which may be related to atelectasis or scarring. Microbiology Date/Time Source Procedure Growth Status 09/05/18 01:00 Blood Blood Culture - Final Staphylococcus Sp Coag Neg Complete 09/09/18 13:50 Sputum Induced Gram Stain - Final Complete 09/09/18 13:50 Sputum Induced Sputum Culture - Final NORMAL UPPER RESPIRATORY [place] PRESENT Complete 09/05/18 01:20 Urine,Clean Catch Urine Culture - Final Escherichia Coli - Esbl Escherichia Coli Complete 09/05/18 02:30 Rectum - Final NO CARBAPENEM-RESISTANT ENTEROBACTERI... Complete Microbiology Date/Time Source Procedure Growth Status 09/09/18 13:50 Sputum Induced Gram Stain - Final Complete 09/09/18 13:50 Sputum Induced Sputum Culture - Final NORMAL UPPER RESPIRATORY L[place]ISA PRESENT Complete Laboratory Tests Test 09/11/18 05:30 White Blood Count 12.4 K/UL (4.8-10.8) H Red Blood Count 3.84 M/UL (4.20-5.40) L Hemoglobin 11.9 G/DL (12.0-16.0) L Hematocrit 36.9 % (37.0-47.0) L Mean Corpuscular Volume 96 FL (80-99) Mean Corpuscular Hemoglobin 31.0 PG (27.0-31.0) Mean Corpuscular Hemoglobin Concent 32.3 G/DL (32.0-36.0) Red Cell Distribution Width 14.4 % (11.6-14.8) Platelet Count 262 K/UL (150-450) Mean Platelet Volume 5.6 FL (6.5-10.1) L Neutrophils (%) (Auto) 70.0 % (45.0-75.0) Lymphocytes (%) (Auto) 21.1 % (20.0-45.0) Monocytes (%) (Auto) 6.1 % (1.0-10.0) Eosinophils (%) (Auto) 2.0 % (0.0-3.0) Basophils (%) (Auto) 0.8 % (0.0-2.0) Sodium Level 141 MMOL/L (136-145) Potassium Level 3.7 MMOL/L (3.5-5.1) Chloride Level 103 MMOL/L (98-107) Carbon Dioxide Level 31 MMOL/L (21-32) Anion Gap 7 mmol/L (5-15) Blood Urea Nitrogen 15 mg/dL (7-18) Creatinine 0.6 MG/DL (0.55-1.30) Estimat Glomerular Filtration Rate mL/min (>60) Glucose Level 122 MG/DL (74-106) H Calcium Level 8.8 MG/DL (8.5-10.1) Current Medications Medications (Trade) Dose Ordered Sig/Richard Route PRN Reason Start Time Stop Time Status Last Admin Dose Admin Acetaminophen (Tylenol) 650 mg Q6H PRN GT Mild Pain/Temp > 100.5 09/08/18 16:12 10/05/18 16:11 Apixaban (Eliquis) 5 mg Q12HR GT 09/08/18 21:00 10/08/18 20:59 09/11/18 09:43 Atorvastatin Calcium (Lipitor) 40 mg BEDTIME GT 09/08/18 21:00 10/05/18 20:59 09/10/18 21:14 Chlorhexidine Gluconate (Renetta-Hex 2%) 1 applic DAILY@2000 TOPIC 09/10/18 20:00 10/10/18 19:59 09/10/18 21:15 Digoxin (Lanoxin) 0.125 mg DAILY GT 09/09/18 09:00 10/05/18 12:29 09/11/18 09:46 Heparin Sodium/ Sodium Chloride (Heparin 2000 units/Ns 1000ml premix) 2,000 unit ONCE PRN INJ PICC PLACEMENT 09/10/18 15:00 09/11/18 23:59 Hydralazine HCl (Apresoline) 50 mg Q8HR ORAL 09/08/18 22:00 10/05/18 13:59 09/11/18 14:36 Ipratropium [place] (Atrovent) 500 mcg Q6HRT HHN 09/10/18 20:30 09/15/18 20:29 09/11/18 12:43 Lansoprazole (Prevacid) 30 mg DAILY GT 09/09/18 09:00 10/06/18 08:59 09/11/18 09:47 Levetiracetam (Keppra) 750 mg Q12HR NG 09/08/18 21:00 10/05/18 20:59 09/11/18 09:47 Levothyroxine Sodium (Synthroid) 50 mcg DAILY@0630 GT 09/09/18 06:30 10/06/18 06:29 09/11/18 06:12 Lidocaine HCl (Xylocaine 1% 30ml) 30 ml ONCE PRN INJ PICC PLACEMENT 09/10/18 15:00 09/11/18 23:59 Lorazepam (Ativan 2mg/ml 1ml) 0.5 mg Q6H PRN IV For Anxiety 09/10/18 20:45 09/17/18 20:44 Magnesium Oxide (Mag-Ox 400mg) 400 mg DAILY GT 09/09/18 09:00 10/05/18 12:29 09/11/18 09:48 Meropenem 1 gm/ Sodium Chloride 55 ml @ 110 mls/hr Q12H IVPB 09/11/18 17:00 09/15/18 16:59 Quetiapine Fumarate (SEROquel) 12.5 mg Q4H PRN GT agitation 09/08/18 16:30 10/06/18 00:00 Verapamil HCl ([place]) 160 mg Q8HR GT 09/08/18 22:00 10/06/18 12:59 09/11/18 14:35 Kaden Obrien MD Sep 11, 2018 15:03
--- NOTE | 2018-09-11 15:57 | Internal Med Progress Note ---
Subjective Physician Name Joshua Ramsey Attending Physician Joshua Ramsey MD Current Medications Medications (Trade) Dose Ordered Sig/Richard Route PRN Reason Start Time Stop Time Status Last Admin Dose Admin Acetaminophen (Tylenol) 650 mg Q6H PRN GT Mild Pain/Temp > 100.5 09/08/18 16:12 10/05/18 16:11 Apixaban (Eliquis) 5 mg Q12HR GT 09/08/18 21:00 10/08/18 20:59 09/11/18 09:43 Atorvastatin Calcium (Lipitor) 40 mg BEDTIME GT 09/08/18 21:00 10/05/18 20:59 09/10/18 21:14 Chlorhexidine Gluconate (Renetta-Hex 2%) 1 applic DAILY@1999 TOPIC 09/10/18 20:00 10/10/18 19:59 09/10/18 21:15 Digoxin (Lanoxin) 0.125 mg DAILY GT 09/09/18 09:00 10/05/18 12:29 09/11/18 09:46 Heparin Sodium/ Sodium Chloride (Heparin 2000 units/Ns 1000ml premix) 2,000 unit ONCE PRN INJ PICC PLACEMENT 09/10/18 15:00 09/11/18 23:59 Hydralazine HCl (Apresoline) 50 mg Q8HR ORAL 09/08/18 22:00 10/05/18 13:59 09/11/18 14:36 Ipratropium [place] (Atrovent) 500 mcg Q6HRT HHN 09/10/18 20:30 09/15/18 20:29 09/11/18 12:43 Lansoprazole (Prevacid) 30 mg DAILY GT 09/09/18 09:00 10/06/18 08:59 09/11/18 09:47 Levetiracetam (Keppra) 750 mg Q12HR NG 09/08/18 21:00 10/05/18 20:59 09/11/18 09:47 Levothyroxine Sodium (Synthroid) 50 mcg DAILY@0630 GT 09/09/18 06:30 10/06/18 06:29 09/11/18 06:12 Lidocaine HCl (Xylocaine 1% 30ml) 30 ml ONCE PRN INJ PICC PLACEMENT 09/10/18 15:00 09/11/18 23:59 Lorazepam (Ativan 2mg/ml 1ml) 0.5 mg Q6H PRN IV For Anxiety 09/10/18 20:45 09/17/18 20:44 Magnesium Oxide (Mag-Ox 400mg) 400 mg DAILY GT 09/09/18 09:00 10/05/18 12:29 09/11/18 09:48 Meropenem 1 gm/ Sodium Chloride 55 ml @ 110 mls/hr Q12H IVPB 09/11/18 17:00 09/15/18 16:59 Quetiapine Fumarate (SEROquel) 12.5 mg Q4H PRN GT agitation 09/08/18 16:30 10/06/18 00:00 Verapamil HCl (Calan) 160 mg Q8HR GT 09/08/18 22:00 10/06/18 12:59 09/11/18 14:35 Allergies: Coded Allergies: CHLORDIAZEPOXIDE (Verified Allergy, Mild, 01/05/10) DIAZEPAM (Verified Allergy, Mild, 01/05/10) HYDROCHLOROTHIAZIDE (Verified Allergy, Mild, 01/05/10) PENICILLIN G (Verified Allergy, Mild, HIVES, 01/05/10) HYDROMORPHONE (Unverified Allergy, Unknown, 02/22/17) MORPHINE (Unverified Allergy, Unknown, 02/22/17) PENICILLINS (Unverified Allergy, Unknown, 02/22/17) Uncoded Allergies: HYDROCHLOROTHIAZIDE (Allergy, Unknown, 02/22/17) Subjective awake, responsive with open eyes, not verbal, NAD, Objective Last Vital Signs Date Time Temp Pulse Resp B/P (MAP) Pulse Ox O2 Delivery O2 Flow Rate FiO2 09/11/18 14:36 148/88 09/11/18 14:35 100 09/11/18 12:57 20 99 Nasal Cannula 2.0 28 09/11/18 11:59 98.3 Laboratory Tests Test 09/11/18 05:30 White Blood Count 12.4 K/UL (4.8-10.8) H Red Blood Count 3.84 M/UL (4.20-5.40) L Hemoglobin 11.9 G/DL (12.0-16.0) L Hematocrit 36.9 % (37.0-47.0) L Mean Corpuscular Volume 96 FL (80-99) Mean Corpuscular Hemoglobin 31.0 PG (27.0-31.0) Mean Corpuscular Hemoglobin Concent 32.3 G/DL (32.0-36.0) Red Cell Distribution Width 14.4 % (11.6-14.8) Platelet Count 262 K/UL (150-450) Mean Platelet Volume 5.6 FL (6.5-10.1) L Neutrophils (%) (Auto) 70.0 % (45.0-75.0) Lymphocytes (%) (Auto) 21.1 % (20.0-45.0) Monocytes (%) (Auto) 6.1 % (1.0-10.0) Eosinophils (%) (Auto) 2.0 % (0.0-3.0) Basophils (%) (Auto) 0.8 % (0.0-2.0) Sodium Level 141 MMOL/L (136-145) Potassium Level 3.7 MMOL/L (3.5-5.1) Chloride Level 103 MMOL/L (98-107) Carbon Dioxide Level 31 MMOL/L (21-32) Anion Gap 7 mmol/L (5-15) Blood Urea Nitrogen 15 mg/dL (7-18) Creatinine 0.6 MG/DL (0.55-1.30) Estimat Glomerular Filtration Rate mL/min (>60) Glucose Level 122 MG/DL (74-106) H Calcium Level 8.8 MG/DL (8.5-10.1) Microbiology Date/Time Source Procedure Growth Status 09/09/18 13:50 Sputum Induced Gram Stain - Final Complete 09/09/18 13:50 Sputum Induced Sputum Culture - Final NORMAL UPPER RESPIRATORY LOUISA PRESENT Complete Intake and Output 09/10/18 09/11/18 19:00 07:00 Intake Total 320 ml 750 ml Output Total 2300 ml Balance 320 ml -1550 ml Intake Free Water 100 ml 200 ml Tube Feeding 220 ml 550 ml Output Urine Total 2300 ml Objective General: No acute distress, awake and responsive with open eyes, not verbal. HEENT: NCAT, sclera anicteric, PERRLA. Left eye less erythema. Neck: Supple, no significant jugular venous distention, Lungs: Fair inspiratory effort, decrease air on bases no Wheeze. Heart: Regular rate and rhythm, normal S1/S2, no murmurs. Abdomen: soft, nontender, nondistended. Normoactive bowel sounds. +PEG Extremities: No Cyanosis , clubbing or edema. RUE Piccline. Neuro: Very limited secondary to the patient's status. Contraction of upper extremities as well as lower extremity functional quadriplegia as well as weakness on the left side greater than right side. Skin: warm, no rashes. Assessment/Plan Assessment/Plan ASSESSMENT: 1. Sepsis secondary to pneumonia. 2. Atrial fibrillation with rapid ventricular rate. 3. Lactic acidosis. 4. Functional quadriplegia. 5. E. Coli ESBL Urinary tract infection. 6. Hypothyroidism. 7. Chronic iron deficiency anemia. 8. Hypertension. 9. Sick sinus syndrome/pacemaker. 10. Basal ganglia cerebrovascular accident with hemiparesis. 11. Seizure disorder. 12. Morbid obesity. 13. Dysphagia status post percutaneous endoscopic gastrostomy. PLAN: in Medical Unit. Full Code. Broad-spectrum antibiotics: Meropenem IV X [address] Wyatt from Cardiology Electrophysiology Dr. Marques Lau from Pulmonary Critical monitor Labs and cultures. DC Planning to SNF in . Joshua Ramsey M.D. Joshua Ramsey MD Sep 11, 2018 15:57
[2018-09-11 16:00] VITALS: BP 133/78
--- NOTE | 2018-09-11 16:47 | Pulmonology Progress Note ---
Assessment/Plan Assessment/Plan Pulmonary Progress Note HPI Patient presents from nursing facility with reports of being'sick' This is what the paramedics reported Patient herself appears to have had a previous large CVA Is nonverbal Noted to have Pneumonia on CXR History of present illness is significantly limited There was a report that the patient had been just recently transferred to the nursing facility from another hospitalization Allergies: Coded Allergies: CHLORDIAZEPOXIDE (Verified Allergy, Mild, 01/05/10) DIAZEPAM (Verified Allergy, Mild, 01/05/10) HYDROCHLOROTHIAZIDE (Verified Allergy, Mild, 01/05/10) PENICILLIN G (Verified Allergy, Mild, HIVES, 01/05/10) HYDROMORPHONE (Unverified Allergy, Unknown, 02/22/17) MORPHINE (Unverified Allergy, Unknown, 02/22/17) PENICILLINS (Unverified Allergy, Unknown, 02/22/17) Uncoded Allergies: HYDROCHLOROTHIAZIDE (Allergy, Unknown, 02/22/17) Patient History Limited by: medical condition Past Medical History: see triage record Pertinent Family History: unable to obtain Reviewed Nursing Documentation: PMH: Agreed; PSxH: Agreed Nursing Documentation-PMH Hx Cardiac Problems: Yes - CHF, paroxysmal a-fib, hypothyroidism, chronic iron deficiency anemia Hx Hypertension: Yes Hx Pacemaker: Yes History Of Psychiatric Problem: Yes - Depression degenerative disease of basal ganglia Hx Neurological Problems: Yes - Muscle weakness, ankle contracture, quadriplegia, metabolic encephalopathy, Hx Cerebrovascular Accident: Yes Hx Seizures: Yes Review of Systems All Other Systems: limited - Other than the ones mentioned in the history of present illness all others are reviewed however they do stay limited due to the patient's mental status Physical Exam Vital Signs Noted Sp02 EP Interpretation: reviewed, normal General Appearance: mild distress Head: atraumatic Eyes: bilateral eye PERRL ENT: dry mucus membranes Neck: supple Respiratory: crackles, other - Mildly tachypneic Cardiovascular #1: irregularly irregular Gastrointestinal: non tender, soft Musculoskeletal: other - Patient chronically debilitated, left hand is extended , does not follow commands Neurologic: responsive - To physical stimuli Skin: pallor Lymphatic: no adenopathy Impression: Primary Impression: Pneumonia, Sepsis Atrial fibrillation with RVR UTI (urinary tract infection) CHF, paroxysmal a-fib Hypothyroidism Chronic iron deficiency anemia HTN PPM Previous CVA, basal ganglia disease Seizure History Hx Hypertension: Yes Hx Pacemaker: Yes History Of Psychiatric Problem: Yes - Depression degenerative disease of basal ganglia Hx Neurological Problems: Yes - Muscle weakness, ankle contracture, quadriplegia, metabolic encephalopathy, Hx Cerebrovascular Accident: Yes Hx Seizures: Yes ER Course Patient is a fairly complex patient with multiple differential to consideration including but not limited to cardiac cardiopulmonary and vascular emergencies Patient required IV hydration and antibiotics Sepsis reexamination Time: Reevaluation VS refer to nursing note cvs: RRR respiratory: improved respiration peripheral pulses: 2+radial cap refill:<2 seconds skin exam: warm, dry, not mottled Patient continues to be in critical condition and admitted for further care CXR XRAY Chest 1v Indication: Reason For Exam: INFECT Technique: One view of the chest Comparison: 09/09/2018 Findings: Interval placement of a right arm PICC. Catheter tip in the region of the cavoatrial junction. Left-sided pacemaker unchanged. Cardiomegaly is stable. There is pulmonary vascular congestion. No definite focal airspace consolidation. Unchanged elevation of the left hemidiaphragm with streaky left basilar likely atelectasis or scarring. Surgical clips noted in the left neck. Osseous structures stable. Impression: Interval placement of a right arm PICC line. Patchy right basilar opacities most pronounced compared to the prior exam. Cardiomegaly with pulmonary vascular congestion. Unchanged elevation of the left hemidiaphragm with adjacent subtle opacities which may be related to atelectasis or scarring. Labs Test 09/05/18 01:00 09/05/18 01:20 09/05/18 03:00 White Blood Count 15.1 K/UL (4.8-10.8) Red Blood Count 5.40 M/UL (4.20-5.40) Hemoglobin 16.4 G/DL (12.0-16.0) Hematocrit 51.4 % (37.0-47.0) Mean Corpuscular Volume 95 FL (80-99) Mean Corpuscular Hemoglobin 30.4 PG (27.0-31.0) Mean Corpuscular Hemoglobin Concent 31.9 G/DL (32.0-36.0) Red Cell Distribution Width 14.4 % (11.6-14.8) Platelet Count 292 K/UL (150-450) Mean Platelet Volume 6.0 FL (6.5-10.1) Neutrophils (%) (Auto) % (45.0-75.0) Lymphocytes (%) (Auto) % (20.0-45.0) Monocytes (%) (Auto) % (1.0-10.0) Eosinophils (%) (Auto) % (0.0-3.0) Basophils (%) (Auto) % (0.0-2.0) Sodium Level 140 MMOL/L (136-145) Potassium Level 3.8 MMOL/L (3.5-5.1) Chloride Level 99 MMOL/L (98-107) Carbon Dioxide Level 31 MMOL/L (21-32) Anion Gap 10 mmol/L (5-15) Blood Urea Nitrogen 18 mg/dL (7-18) Creatinine 0.8 MG/DL (0.55-1.30) Estimat Glomerular Filtration Rate mL/min (>60) Glucose Level 138 MG/DL (74-106) Lactic Acid Level 3.50 mmol/L (0.4-2.0) 1.90 mmol/L (0.66-2.22) Calcium Level 9.7 MG/DL (8.5-10.1) Total Bilirubin 0.9 MG/DL (0.2-1.0) Aspartate Amino Transf (AST/SGOT) 24 U/L (15-37) Alanine Aminotransferase (ALT/SGPT) 19 U/L (12-78) Alkaline Phosphatase 102 U/L (46-116) Total Creatine Kinase 82 U/L (26-308) Creatine Kinase MB 1.5 NG/ML (0.0-3.6) Creatine Kinase MB Relative Index 1.8 Troponin I 0.033 ng/mL (0.000-0.056) Pro-B-Type Natriuretic Peptide 640 pg/mL (0-125) Total Protein 9.1 G/DL (6.4-8.2) Albumin 3.4 G/DL (3.4-5.0) Globulin 5.7 g/dL Albumin/Globulin Ratio 0.6 (1.0-2.7) Lipase 187 U/L (73-393) Urine Color Yellow Urine Appearance Cloudy Urine pH 7 (4.5-8.0) Urine Specific [place] 1.010 (1.005-1.035) Urine Protein 3+ (NEGATIVE) Urine Glucose (UA) Negative (NEGATIVE) Urine Ketones Negative (NEGATIVE) Urine Blood 3+ (NEGATIVE) Urine Nitrite Positive (NEGATIVE) Urine Bilirubin Negative (NEGATIVE) Urine Urobilinogen 1 MG/DL (0.0-1.0) Urine Leukocyte Esterase 3+ (NEGATIVE) Urine RBC 10-15 /HPF (0 - 2) Urine WBC 60-80 /HPF (0 - 2) Urine Squamous Epithelial Cells Moderate /LPF (NONE/OCC) Urine Bacteria Many /HPF (NONE) EKG Diagnostic Results Rate: tachycardiac Rhythm: other - afib ST Segments: other - Nonspecific ST changes Rhythm Strip Diag. Results EP Interpretation: yes Rate: 80 Rhythm: no PVC's, no ectopy, other - Atrial fibrillation Chest X-Ray Diagnostic Results Chest X-Ray Diagnostic Results : Chest X-Ray Ordered: Yes # of Views/Limited/Complete: 1 View Indication: Chest Pain EP Interpretation: Yes Interpretation: no effusion, no pneumothorax, other - Right-sided marking concerning for infiltrated Impression: Other - Right-sided marking possible pneumonia Subjective ROS Limited/Unobtainable: No Allergies: Coded Allergies: CHLORDIAZEPOXIDE (Verified Allergy, Mild, 01/05/10) DIAZEPAM (Verified Allergy, Mild, 01/05/10) HYDROCHLOROTHIAZIDE (Verified Allergy, Mild, 01/05/10) PENICILLIN G (Verified Allergy, Mild, HIVES, 01/05/10) HYDROMORPHONE (Unverified Allergy, Unknown, 02/22/17) MORPHINE (Unverified Allergy, Unknown, 02/22/17) PENICILLINS (Unverified Allergy, Unknown, 02/22/17) Uncoded Allergies: HYDROCHLOROTHIAZIDE (Allergy, Unknown, 02/22/17) Objective Last 24 Hour Vital Signs Date Time Temp Pulse Resp B/P (MAP) Pulse Ox O2 Delivery O2 Flow Rate FiO2 09/11/18 16:00 98.1 75 20 133/78 (96) 95 09/11/18 14:36 148/88 09/11/18 14:35 100 148/88 09/11/18 12:57 84 20 99 Nasal Cannula 2.0 28 09/11/18 12:43 82 21 98 Nasal Cannula 2.0 28 09/11/18 11:59 98.3 83 20 136/91 (106) 98 09/11/18 09:46 87 09/11/18 09:00 Nasal Cannula 2.0 Nasal Cannula 2.0 09/11/18 08:00 97.6 90 20 122/69 (86) 95 09/11/18 06:56 79 18 99 Nasal Cannula 2.0 28 09/11/18 06:45 76 19 98 Nasal Cannula 2.0 28 09/11/18 06:45 Nasal Cannula 2.0 28 09/11/18 06:45 98 Nasal Cannula 2.0 28 09/11/18 06:14 172/90 09/11/18 06:13 71 172/90 09/11/18 04:00 97.7 70 18 137/86 (103) 95 09/11/18 00:08 77 20 99 Nasal Cannula 2.0 28 09/11/18 00:00 70 20 98 Nasal Cannula 2.0 28 09/11/18 00:00 98.0 71 18 145/74 (97) 100 09/10/18 21:15 70 147/88 09/10/18 21:14 147/88 09/10/18 21:00 Nasal Cannula 2.0 Nasal Cannula 2.0 09/10/18 20:10 70 20 99 Nasal Cannula 2.0 28 09/10/18 20:10 Nasal Cannula 2.0 28 09/10/18 20:10 Nasal Cannula 2.0 28 09/10/18 20:10 70 20 Nasal Cannula 2.0 09/10/18 20:10 99 Nasal Cannula 2.0 28 09/10/18 20:00 98.0 72 16 147/88 (107) 98 Intake and Output 09/10/18 09/11/18 19:00 07:00 Intake Total 320 ml 750 ml Output Total 2300 ml Balance 320 ml -1550 ml Intake Free Water 100 ml 200 ml Tube Feeding 220 ml 550 ml Output Urine Total 2300 ml Microbiology Date/Time Source Procedure Growth Status 09/09/18 13:50 Sputum Induced Gram Stain - Final Complete 09/09/18 13:50 Sputum Induced Sputum Culture - Final NORMAL UPPER RESPIRATORY LOUISA PRESENT Complete Laboratory Tests 09/11/18 05:30: White Blood Count 12.4H, Red Blood Count 3.84L, Hemoglobin 11.9L, Hematocrit 36.9L, Mean Corpuscular Volume 96, Mean Corpuscular Hemoglobin 31.0, Mean Corpuscular Hemoglobin Concent 32.3, Red Cell Distribution Width 14.4, Platelet Count 262, Mean Platelet Volume 5.6L, Neutrophils (%) (Auto) 70.0, Lymphocytes ( %) (Auto) 21.1, Monocytes (%) (Auto) 6.1, Eosinophils (%) (Auto) 2.0, Basophils (%) (Auto) 0.8, Sodium Level 141, Potassium Level 3.7, Chloride Level 103, Carbon Dioxide Level 31, Anion Gap 7, Blood Urea Nitrogen 15, Creatinine 0.6, Estimat Glomerular Filtration Rate , Glucose Level 122H, Calcium Level 8.8 Current Medications Medications (Trade) Dose Ordered Sig/Richard Route PRN Reason Start Time Stop Time Status Last Admin Dose Admin Acetaminophen (Tylenol) 650 mg Q6H PRN GT Mild Pain/Temp > 100.5 09/08/18 16:12 10/05/18 16:11 Apixaban (Eliquis) 5 mg Q12HR GT 09/08/18 21:00 10/08/18 20:59 09/11/18 09:43 Atorvastatin Calcium (Lipitor) 40 mg BEDTIME GT 09/08/18 21:00 10/05/18 20:59 09/10/18 21:14 Chlorhexidine Gluconate (Renetta-Hex 2%) 1 applic DAILY@1999 TOPIC 09/10/18 20:00 10/10/18 19:59 09/10/18 21:15 Digoxin (Lanoxin) 0.125 mg DAILY GT 09/09/18 09:00 10/05/18 12:29 09/11/18 09:46 Heparin Sodium/ Sodium Chloride (Heparin 2000 units/Ns 1000ml premix) 2,000 unit ONCE PRN INJ PICC PLACEMENT 09/10/18 15:00 09/11/18 23:59 Hydralazine HCl (Apresoline) 50 mg Q8HR ORAL 09/08/18 22:00 10/05/18 13:59 09/11/18 14:36 Ipratropium [place] (Atrovent) 500 mcg Q6HRT HHN 09/10/18 20:30 09/15/18 20:29 09/11/18 12:43 Lansoprazole (Prevacid) 30 mg DAILY GT 09/09/18 09:00 10/06/18 08:59 09/11/18 09:47 Levetiracetam (Keppra) 750 mg Q12HR NG 09/08/18 21:00 10/05/18 20:59 09/11/18 09:47 Levothyroxine Sodium (Synthroid) 50 mcg DAILY@0630 GT 09/09/18 06:30 10/06/18 06:29 09/11/18 06:12 Lidocaine HCl (Xylocaine 1% 30ml) 30 ml ONCE PRN INJ PICC PLACEMENT 09/10/18 15:00 09/11/18 23:59 Lorazepam (Ativan 2mg/ml 1ml) 0.5 mg Q6H PRN IV For Anxiety 09/10/18 20:45 09/17/18 20:44 Magnesium Oxide (Mag-Ox 400mg) 400 mg DAILY GT 09/09/18 09:00 10/05/18 12:29 09/11/18 09:48 Meropenem 1 gm/ Sodium Chloride 55 ml @ 110 mls/hr Q12H IVPB 09/11/18 17:00 09/15/18 16:59 Quetiapine Fumarate (SEROquel) 12.5 mg Q4H PRN GT agitation 09/08/18 16:30 10/06/18 00:00 Verapamil HCl (Calan) 160 mg Q8HR GT 09/08/18 22:00 10/06/18 12:59 09/11/18 14:35 Marques Lau MD Sep 11, 2018 16:47
--- NOTE | 2018-09-11 17:04 | Diagnostic Imaging Report ---
APPROVED REPORT CPT Code: 65964 Present Symptoms Comments: RIGHT ARM SWELLIND. RIGHT UPPER EXTREMITY: Venous imaging reveals patency of the internal jugular, subclavian, axillary and brachial veins. The cephalic and basilic veins are also patent. Doppler indicates normal spontaneous flow within these venous segments. Edema noted in cubital fossa area.
--- NOTE | 2018-09-11 19:00 | NUR ---
NURSE NOTES: Patient continue to tolerate G-tube feedings,turned and position.Bed alarm on,HOB is elevated.
--- NOTE | 2018-09-11 19:15 | NUR ---
HAND-OFF: Report given to [place] WRIGHT
[2018-09-11 20:00] VITALS: BP 151/81
--- NOTE | 2018-09-11 20:00 | NUR ---
NURSE NOTES: Received patient in bed, awake, non verbal, alert to name, No acute distress noted, G tube as ordered, HOB is elevated, Bed alarm is on, Bed locked and low position, call light with reach, Will continue to monitor.
[2018-09-11] MEDS: Atorvastatin 20mg tab GT SCH (21:41)
[2018-09-11] MEDS: Dyna-Hex 2% Top Sol 2oz TOPIC SCH (21:42)
[2018-09-12] VITALS: BP 140/77
[2018-09-12] MEDS: Ipratropium 0.02% Inh Soln 2.5ml UD HHN SCH ×3 (00:17→12:48)
--- NOTE | 2018-09-12 03:31 | NUR ---
HAND-OFF: Report given to KYLE Arellano.
[2018-09-12 04:00] VITALS: BP 141/83
[2018-09-12] MEDS: Meropenem 1 GM in NS 55 ML IVPB SCH ×2 (04:49→16:21)
[2018-09-12] MEDS: HydrALAZINE 50mg tab ORAL SCH ×2 (05:49→13:04)
[2018-09-12] MEDS: Verapamil 80mg tab GT SCH ×2 (05:50→13:03)
--- NOTE | 2018-09-12 07:30 | NUR ---
NURSE NOTES: Received patient in bed, awake, non verbal, No sign of distress noted, G tube on going tolerating well, PICC line right upper arm , on aspiration and fall precaution observed and maintained, HOB is elevated, Bed alarm is on, Bed locked and low position,martha q2h for comfort and good circulation, call light with reach, Will continue to monitor. manuel leon
--- NOTE | 2018-09-12 07:45 | NUR ---
HAND-OFF: Report given to KYLE Holloway.
[2018-09-12 08:00] VITALS: BP 178/85
[2018-09-12 08:30] VITALS: BP 152/71
[2018-09-12] MEDS: Digoxin 0.125mg tab GT SCH (08:52)
[2018-09-12] MEDS: Eliquis 2.5mg tablet GT SCH (08:52)
[2018-09-12] MEDS: Magnesium Oxide 400mg tab GT SCH (08:52)
[2018-09-12] MEDS: levETIRAcetam 500mg/5ml Liquid NG SCH (08:52)
[2018-09-12 11:44] VITALS: BP 140/83
--- NOTE | 2018-09-12 14:36 | Cardiac Electrophysiology PN ---
Assessment/Plan Assessment/Plan 1. Atrial fibrillation with rapid ventricular response. Stable on verapamil 160 q 8 hrs , digoxin and Eliquis 5 mg b.i.d. 2. Status post [employer] pacemaker in 2013. 3. Hypothyroidism, on Synthroid. 4. Dementia. 5. Dysphagia, status post G-tube. 6. Hyperlipidemia, on Lipitor. 7. Essential hypertension. On Verapamil 8. PNA on Abx per Dr. hawkins via PICC line 9. SNIF placement CRISTINA RN Subjective Subjective No Cardiac issues overnight. Awaiting placement Objective Last 24 Hour Vital Signs Date Time Temp Pulse Resp B/P (MAP) Pulse Ox O2 Delivery O2 Flow Rate FiO2 09/12/18 13:04 140/83 09/12/18 13:03 91 140/83 09/12/18 13:00 90 18 99 Nasal Cannula 2.0 28 09/12/18 12:49 91 16 96 Nasal Cannula 2.0 28 09/12/18 11:44 97.5 70 18 140/83 (102) 97 09/12/18 08:52 72 09/12/18 08:30 97.6 68 18 152/71 (98) 98 09/12/18 08:00 Nasal Cannula 2.0 Nasal Cannula 2.0 09/12/18 08:00 97.6 71 18 178/85 (116) 96 09/12/18 07:12 72 22 99 Nasal Cannula 2.0 28 09/12/18 07:00 69 21 96 Nasal Cannula 2.0 09/12/18 07:00 96 Nasal Cannula 2.0 09/12/18 07:00 Nasal Cannula 2.0 09/12/18 05:50 68 141/83 09/12/18 05:49 141/83 09/12/18 04:00 97.4 68 20 141/83 (102) 96 09/12/18 00:21 70 20 97 Nasal Cannula 2.0 28 09/12/18 00:13 70 20 95 Nasal Cannula 2.0 28 09/12/18 00:00 97.6 71 17 140/77 (98) 96 09/11/18 21:45 174/84 09/11/18 21:44 70 174/84 09/11/18 21:41 70 20 99 Nasal Cannula 2.0 28 09/11/18 21:33 70 20 97 Nasal Cannula 2.0 28 09/11/18 21:33 97 Nasal Cannula 2.0 28 09/11/18 21:33 Nasal Cannula 2.0 28 09/11/18 21:00 Nasal Cannula 2.0 Nasal Cannula 2.0 09/11/18 20:00 97.7 63 20 151/81 (104) 96 09/11/18 16:00 98.1 75 20 133/78 (96) 95 09/11/18 14:36 148/88 09/11/18 14:35 100 148/88 Intake and Output 09/11/18 09/12/18 19:00 07:00 Intake Total 815 ml 540 ml Output Total 1001 ml Balance -186 ml 540 ml Intake Free Water 100 ml 100 ml Tube Feeding 715 ml 440 ml Output Urine Total 1000 ml Stool Total 1 ml # Bowel Movements 1 Objective HEAD AND NECK: No JVD. LUNGS: Coarse rhonchi. CARDIOVASCULAR: Regular S1 and S2 with no gallop. Pacemaker is in the left subclavian. ABDOMEN: G-tube intact EXTREMITIES: 1+ pitting edema. Elijah Wyatt MD Sep 12, 2018 14:36
--- NOTE | 2018-09-12 15:02 | Pulmonology Progress Note ---
Assessment/Plan Assessment/Plan Pulmonary Progress Note HPI Patient presents from nursing facility with reports of being'sick' This is what the paramedics reported Patient herself appears to have had a previous large CVA Is nonverbal Noted to have Pneumonia on CXR, right sided infiltrates worsening on current CXR Allergies: Coded Allergies: CHLORDIAZEPOXIDE (Verified Allergy, Mild, 01/05/10) DIAZEPAM (Verified Allergy, Mild, 01/05/10) HYDROCHLOROTHIAZIDE (Verified Allergy, Mild, 01/05/10) PENICILLIN G (Verified Allergy, Mild, HIVES, 01/05/10) HYDROMORPHONE (Unverified Allergy, Unknown, 02/22/17) MORPHINE (Unverified Allergy, Unknown, 02/22/17) PENICILLINS (Unverified Allergy, Unknown, 02/22/17) Uncoded Allergies: HYDROCHLOROTHIAZIDE (Allergy, Unknown, 02/22/17) Patient History Limited by: medical condition Past Medical History: CHF, paroxysmal a-fib, hypothyroidism, chronic iron deficiency anemia, Depression degenerative disease of basal ganglia, previous CVA, Muscle weakness, ankle contracture, quadriplegia, metabolic encephalopathy All Other Systems: limited - Other than the ones mentioned in the history of present illness all others are reviewed however they do stay limited due to the patient's mental status Physical Exam Vital Signs Noted Sp02 EP Interpretation: reviewed, normal General Appearance: mild distress Head: atraumatic Eyes: bilateral eye PERRL ENT: dry mucus membranes Neck: supple Respiratory: crackles, other - Mildly tachypneic Cardiovascular #1: irregularly irregular Gastrointestinal: non tender, soft Musculoskeletal: other - Patient chronically debilitated, left hand is extended , does not follow commands Neurologic: responsive - To physical stimuli Skin: pallor Lymphatic: no adenopathy Impression: Primary Impression: Pneumonia, Sepsis Atrial fibrillation with RVR UTI (urinary tract infection) CHF, paroxysmal a-fib Hypothyroidism Chronic iron deficiency anemia HTN PPM Previous CVA, basal ganglia disease Seizure History Plan: Continue antibiotics Aspiration precautions HHN O2 PRN XRAY Chest 1v Indication: Reason For Exam: INFECT Technique: One view of the chest Comparison: 09/09/2018 Findings: Interval placement of a right arm PICC. Catheter tip in the region of the cavoatrial junction. Left-sided pacemaker unchanged. Cardiomegaly is stable. There is pulmonary vascular congestion. No definite focal airspace consolidation. Unchanged elevation of the left hemidiaphragm with streaky left basilar likely atelectasis or scarring. Surgical clips noted in the left neck. Osseous structures stable. Impression: Interval placement of a right arm PICC line. Patchy right basilar opacities most pronounced compared to the prior exam. Cardiomegaly with pulmonary vascular congestion. Unchanged elevation of the left hemidiaphragm with adjacent subtle opacities which may be related to atelectasis or scarring. Labs Test 09/05/18 01:00 09/05/18 01:20 09/05/18 03:00 White Blood Count 15.1 K/UL (4.8-10.8) Red Blood Count 5.40 M/UL (4.20-5.40) Hemoglobin 16.4 G/DL (12.0-16.0) Hematocrit 51.4 % (37.0-47.0) Mean Corpuscular Volume 95 FL (80-99) Mean Corpuscular Hemoglobin 30.4 PG (27.0-31.0) Mean Corpuscular Hemoglobin Concent 31.9 G/DL (32.0-36.0) Red Cell Distribution Width 14.4 % (11.6-14.8) Platelet Count 292 K/UL (150-450) Mean Platelet Volume 6.0 FL (6.5-10.1) Neutrophils (%) (Auto) % (45.0-75.0) Lymphocytes (%) (Auto) % (20.0-45.0) Monocytes (%) (Auto) % (1.0-10.0) Eosinophils (%) (Auto) % (0.0-3.0) Basophils (%) (Auto) % (0.0-2.0) Sodium Level 140 MMOL/L (136-145) Potassium Level 3.8 MMOL/L (3.5-5.1) Chloride Level 99 MMOL/L (98-107) Carbon Dioxide Level 31 MMOL/L (21-32) Anion Gap 10 mmol/L (5-15) Blood Urea Nitrogen 18 mg/dL (7-18) Creatinine 0.8 MG/DL (0.55-1.30) Estimat Glomerular Filtration Rate mL/min (>60) Glucose Level 138 MG/DL (74-106) Lactic Acid Level 3.50 mmol/L (0.4-2.0) 1.90 mmol/L (0.66-2.22) Calcium Level 9.7 MG/DL (8.5-10.1) Total Bilirubin 0.9 MG/DL (0.2-1.0) Aspartate Amino Transf (AST/SGOT) 24 U/L (15-37) Alanine Aminotransferase (ALT/SGPT) 19 U/L (12-78) Alkaline Phosphatase 102 U/L (46-116) Total Creatine Kinase 82 U/L (26-308) Creatine Kinase MB 1.5 NG/ML (0.0-3.6) Creatine Kinase MB Relative Index 1.8 Troponin I 0.033 ng/mL (0.000-0.056) Pro-B-Type Natriuretic Peptide 640 pg/mL (0-125) Total Protein 9.1 G/DL (6.4-8.2) Albumin 3.4 G/DL (3.4-5.0) Globulin 5.7 g/dL Albumin/Globulin Ratio 0.6 (1.0-2.7) Lipase 187 U/L (73-393) Urine Color Yellow Urine Appearance Cloudy Urine pH 7 (4.5-8.0) Urine Specific Lovely 1.010 (1.005-1.035) Urine Protein 3+ (NEGATIVE) Urine Glucose (UA) Negative (NEGATIVE) Urine Ketones Negative (NEGATIVE) Urine Blood 3+ (NEGATIVE) Urine Nitrite Positive (NEGATIVE) Urine Bilirubin Negative (NEGATIVE) Urine Urobilinogen 1 MG/DL (0.0-1.0) Urine Leukocyte Esterase 3+ (NEGATIVE) Urine RBC 10-15 /HPF (0 - 2) Urine WBC 60-80 /HPF (0 - 2) Urine Squamous Epithelial Cells Moderate /LPF (NONE/OCC) Urine Bacteria Many /HPF (NONE) EKG Diagnostic Results Rate: tachycardiac Rhythm: other - afib ST Segments: other - Nonspecific ST changes Rhythm Strip Diag. Results EP Interpretation: yes Rate: 80 Rhythm: no PVC's, no ectopy, other - Atrial fibrillation Chest X-Ray Diagnostic Results Chest X-Ray Diagnostic Results : Chest X-Ray Ordered: Yes # of Views/Limited/Complete: 1 View Indication: Chest Pain EP Interpretation: Yes Interpretation: no effusion, no pneumothorax, other - Right-sided marking concerning for infiltrated Impression: Other - Right-sided marking possible pneumonia Subjective ROS Limited/Unobtainable: No Allergies: Coded Allergies: CHLORDIAZEPOXIDE (Verified Allergy, Mild, 01/05/10) DIAZEPAM (Verified Allergy, Mild, 01/05/10) HYDROCHLOROTHIAZIDE (Verified Allergy, Mild, 01/05/10) PENICILLIN G (Verified Allergy, Mild, HIVES, 01/05/10) HYDROMORPHONE (Unverified Allergy, Unknown, 02/22/17) MORPHINE (Unverified Allergy, Unknown, 02/22/17) PENICILLINS (Unverified Allergy, Unknown, 02/22/17) Uncoded Allergies: HYDROCHLOROTHIAZIDE (Allergy, Unknown, 02/22/17) Objective Last 24 Hour Vital Signs Date Time Temp Pulse Resp B/P (MAP) Pulse Ox O2 Delivery O2 Flow Rate FiO2 09/12/18 13:04 140/83 09/12/18 13:03 91 140/83 09/12/18 13:00 90 18 99 Nasal Cannula 2.0 09/12/18 12:49 91 16 96 Nasal Cannula 2.0 09/12/18 11:44 97.5 70 18 140/83 (102) 97 09/12/18 08:52 72 09/12/18 08:30 97.6 68 18 152/71 (98) 98 09/12/18 08:00 Nasal Cannula 2.0 Nasal Cannula 2.0 09/12/18 08:00 97.6 71 18 178/85 (116) 96 09/12/18 07:12 72 22 99 Nasal Cannula 2.0 09/12/18 07:00 69 21 96 Nasal Cannula 2.0 09/12/18 07:00 96 Nasal Cannula 2.0 09/12/18 07:00 Nasal Cannula 2.0 09/12/18 05:50 68 141/83 09/12/18 05:49 141/83 09/12/18 04:00 97.4 68 20 141/83 (102) 96 09/12/18 00:21 70 20 97 Nasal Cannula 2.0 09/12/18 00:13 70 20 95 Nasal Cannula 2.0 09/12/18 00:00 97.6 71 17 140/77 (98) 96 09/11/18 21:45 174/84 09/11/18 21:44 70 174/84 09/11/18 21:41 70 20 99 Nasal Cannula 2.0 28 09/11/18 21:33 70 20 97 Nasal Cannula 2.0 28 09/11/18 21:33 97 Nasal Cannula 2.0 28 09/11/18 21:33 Nasal Cannula 2.0 28 09/11/18 21:00 Nasal Cannula 2.0 Nasal Cannula 2.0 09/11/18 20:00 97.7 63 20 151/81 (104) 96 09/11/18 16:00 98.1 75 20 133/78 (96) 95 Intake and Output 09/11/18 09/12/18 19:00 07:00 Intake Total 815 ml 540 ml Output Total 1001 ml Balance -186 ml 540 ml Intake Free Water 100 ml 100 ml Tube Feeding 715 ml 440 ml Output Urine Total 1000 ml Stool Total 1 ml # Bowel Movements 1 Current Medications Medications (Trade) Dose Ordered Sig/Richard Route PRN Reason Start Time Stop Time Status Last Admin Dose Admin Acetaminophen (Tylenol) 650 mg Q6H PRN GT Mild Pain/Temp > 100.5 09/08/18 16:12 10/05/18 16:11 Apixaban (Eliquis) 5 mg Q12HR GT 09/08/18 21:00 10/08/18 20:59 09/12/18 08:52 Atorvastatin Calcium (Lipitor) 40 mg BEDTIME GT 09/08/18 21:00 10/05/18 20:59 09/11/18 21:41 Chlorhexidine Gluconate (Renetta-Hex 2%) 1 applic DAILY@1999 TOPIC 09/10/18 20:00 10/10/18 19:59 09/11/18 21:42 Digoxin (Lanoxin) 0.125 mg DAILY GT 09/09/18 09:00 10/05/18 12:29 09/12/18 08:52 Hydralazine HCl (Apresoline) 50 mg Q8HR ORAL 09/08/18 22:00 10/05/18 13:59 09/12/18 13:04 Ipratropium [place] (Atrovent) 500 mcg Q6HRT HHN 09/10/18 20:30 09/15/18 20:29 09/12/18 12:48 Lansoprazole (Prevacid) 30 mg DAILY GT 09/09/18 09:00 1/21/19 08:59 09/12/18 08:52 Levetiracetam (Keppra) 750 mg Q12HR NG 09/08/18 21:00 10/05/18 20:59 09/12/18 08:52 Levothyroxine Sodium (Synthroid) 50 mcg DAILY@0630 GT 09/09/18 06:30 10/06/18 06:29 09/12/18 05:49 Lorazepam (Ativan 2mg/ml 1ml) 0.5 mg Q6H PRN IV For Anxiety 09/10/18 20:45 09/17/18 20:44 Magnesium Oxide (Mag-Ox 400mg) 400 mg DAILY GT 09/09/18 09:00 10/05/18 12:29 09/12/18 08:52 Meropenem 1 gm/ Sodium Chloride 55 ml @ 110 mls/hr Q12H IVPB 09/11/18 17:00 09/15/18 16:59 09/12/18 04:49 Quetiapine Fumarate (SEROquel) 12.5 mg Q4H PRN GT agitation 09/08/18 16:30 10/06/18 00:00 Verapamil HCl (Calan) 160 mg Q8HR GT 09/08/18 22:00 10/06/18 12:59 09/12/18 13:03 Marques Lau MD Sep 12, 2018 15:02
[2018-09-12 16:00] VITALS: BP 130/88
--- NOTE | 2018-09-12 16:19 | NUR ---
DISCHARGE PLANNED MEDICAL CARE MANAGER DISCUSSED DISCHARGE WITH DR GUERRERO DISCHARGE ORDER ENTERED. 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
[2018-09-12] MEDS ORDERED: MEROPENEM-1 GM/50 ML IV (16:44)
--- NOTE | 2018-09-12 16:45 | Internal Med Progress Note ---
Subjective Physician Name Joshua Ramsey Attending Physician Joshua Ramsey MD Current Medications Medications (Trade) Dose Ordered Sig/Richard Route PRN Reason Start Time Stop Time Status Last Admin Dose Admin Acetaminophen (Tylenol) 650 mg Q6H PRN GT Mild Pain/Temp > 100.5 09/08/18 16:12 10/05/18 16:11 Apixaban (Eliquis) 5 mg Q12HR GT 09/08/18 21:00 10/08/18 20:59 09/12/18 08:52 Atorvastatin Calcium (Lipitor) 40 mg BEDTIME GT 09/08/18 21:00 10/05/18 20:59 09/11/18 21:41 Chlorhexidine Gluconate (Renetta-Hex 2%) 1 applic DAILY@1999 TOPIC 09/10/18 20:00 10/10/18 19:59 09/11/18 21:42 Digoxin (Lanoxin) 0.125 mg DAILY GT 09/09/18 09:00 10/05/18 12:29 09/12/18 08:52 Hydralazine HCl (Apresoline) 50 mg Q8HR ORAL 09/08/18 22:00 10/05/18 13:59 09/12/18 13:04 Ipratropium [place] (Atrovent) 500 mcg Q6HRT N 09/10/18 20:30 09/15/18 20:29 09/12/18 12:48 Lansoprazole (Prevacid) 30 mg DAILY GT 09/09/18 09:00 10/06/18 08:59 09/12/18 08:52 Levetiracetam (Keppra) 750 mg Q12HR NG 09/08/18 21:00 10/05/18 20:59 09/12/18 08:52 Levothyroxine Sodium (Synthroid) 50 mcg DAILY@0630 GT 09/09/18 06:30 10/06/18 06:29 09/12/18 05:49 Lorazepam (Ativan 2mg/ml 1ml) 0.5 mg Q6H PRN IV For Anxiety 09/10/18 20:45 09/17/18 20:44 Magnesium Oxide (Mag-Ox 400mg) 400 mg DAILY GT 09/09/18 09:00 10/05/18 12:29 12/28/18 08:52 Meropenem 1 gm/ Sodium Chloride 55 ml @ 110 mls/hr Q12H IVPB 09/11/18 17:00 09/15/18 16:59 09/12/18 16:21 Quetiapine Fumarate (SEROquel) 12.5 mg Q4H PRN GT agitation 09/08/18 16:30 10/06/18 00:00 Verapamil HCl (Calan) 160 mg Q8HR GT 09/08/18 22:00 10/06/18 12:59 09/12/18 13:03 Allergies: Coded Allergies: CHLORDIAZEPOXIDE (Verified Allergy, Mild, 01/05/10) DIAZEPAM (Verified Allergy, Mild, 01/05/10) HYDROCHLOROTHIAZIDE (Verified Allergy, Mild, 01/05/10) PENICILLIN G (Verified Allergy, Mild, HIVES, 01/05/10) HYDROMORPHONE (Unverified Allergy, Unknown, 02/22/17) MORPHINE (Unverified Allergy, Unknown, 02/22/17) PENICILLINS (Unverified Allergy, Unknown, 02/22/17) Uncoded Allergies: HYDROCHLOROTHIAZIDE (Allergy, Unknown, 02/22/17) Subjective awake, responsive with open eyes, not verbal, NAD, Objective Last Vital Signs Date Time Temp Pulse Resp B/P (MAP) Pulse Ox O2 Delivery O2 Flow Rate FiO2 09/12/18 16:00 97.5 67 18 130/88 (102) 97 09/12/18 13:00 Nasal Cannula 2.0 28 Intake and Output 09/11/18 09/12/18 19:00 07:00 Intake Total 815 ml 540 ml Output Total 1001 ml Balance -186 ml 540 ml Intake Free Water 100 ml 100 ml Tube Feeding 715 ml 440 ml Output Urine Total 1000 ml Stool Total 1 ml # Bowel Movements 1 Objective General: No acute distress, awake and responsive with open eyes, not verbal. HEENT: NCAT, sclera anicteric, PERRLA. Left eye less erythema. Neck: Supple, no significant jugular venous distention, Lungs: Fair inspiratory effort, decrease air on bases no Wheeze. Heart: Regular rate and rhythm, normal S1/S2, no murmurs. Abdomen: soft, nontender, nondistended. Normoactive bowel sounds. +PEG Extremities: No Cyanosis , clubbing or edema. RUE Piccline. Neuro: Very limited secondary to the patient's status. Contraction of upper extremities as well as lower extremity functional quadriplegia as well as weakness on the left side greater than right side. Skin: warm, no rashes. Assessment/Plan Assessment/Plan ASSESSMENT: 1. Sepsis secondary to pneumonia. 2. Atrial fibrillation with rapid ventricular rate. 3. Lactic acidosis. 4. Functional quadriplegia. 5. E. Coli ESBL Urinary tract infection. 6. Hypothyroidism. 7. Chronic iron deficiency anemia. 8. Hypertension. 9. Sick sinus syndrome/pacemaker. 10. Basal ganglia cerebrovascular accident with hemiparesis. 11. Seizure disorder. 12. Morbid obesity. 13. Dysphagia status post percutaneous endoscopic gastrostomy. PLAN: Full Code. Broad-spectrum antibiotics: Meropenem IV X [address] Wyatt from Cardiology Electrophysiology Dr. Marques Lau from Pulmonary Critical monitor Labs and cultures. DC Planning to SNF today. Joshua Ramsey M.D. Joshua Ramsey MD Sep 12, 2018 16:45
--- NOTE | 2018-09-12 17:00 | NUR ---
NURSE NOTES WITH ORDER NOTED BACK TO [facility] REPORT GIVEN TO DEACON, MARTIR MESSAGE TO PATIENT FAMILY, DISCHARGED PATIENT WITH PICC LINE RIGHT UPPER ARM VERY PATENT, G-TUBE CLAMPED AT THIS TIME, 02 at 2LPM VIA NC SAT 95. 1815 DISCHARGED IN STABLE CONDITION WITH NO BELONGIN TAKEN KYLE NOWAK
--- NOTE | 2018-09-12 22:14 | General Progress Note ---
Assessment/Plan Problem List: (1) Dementia ICD Codes: F03.90 - Unspecified dementia without behavioral disturbance SNOMED: [id number] (2) encephalopathy with metabolic factor Status: stable Assessment/Plan dc valium seroquel prn admitting orders were placed Subjective Neurologic/Psychiatric: Reports: anxiety, depressed Allergies: Coded Allergies: CHLORDIAZEPOXIDE (Verified Allergy, Mild, 01/05/10) DIAZEPAM (Verified Allergy, Mild, 01/05/10) HYDROCHLOROTHIAZIDE (Verified Allergy, Mild, 01/05/10) PENICILLIN G (Verified Allergy, Mild, HIVES, 01/05/10) HYDROMORPHONE (Unverified Allergy, Unknown, 02/22/17) MORPHINE (Unverified Allergy, Unknown, 02/22/17) PENICILLINS (Unverified Allergy, Unknown, 02/22/17) Uncoded Allergies: HYDROCHLOROTHIAZIDE (Allergy, Unknown, 02/22/17) Objective Last 24 Hour Vital Signs Date Time Temp Pulse Resp B/P (MAP) Pulse Ox O2 Delivery O2 Flow Rate FiO2 09/12/18 16:00 97.5 67 18 130/88 (102) 97 09/12/18 13:04 140/83 09/12/18 13:03 91 140/83 09/12/18 13:00 90 18 99 Nasal Cannula 2.0 09/12/18 12:49 91 16 96 Nasal Cannula 2.0 09/12/18 11:44 97.5 70 18 140/83 (102) 97 09/12/18 08:52 72 09/12/18 08:30 97.6 68 18 152/71 (98) 98 09/12/18 08:00 Nasal Cannula 2.0 Nasal Cannula 2.0 09/12/18 08:00 97.6 71 18 178/85 (116) 96 09/12/18 07:12 72 22 99 Nasal Cannula 2.0 09/12/18 07:00 69 21 96 Nasal Cannula 2.0 09/12/18 07:00 96 Nasal Cannula 2.0 09/12/18 07:00 Nasal Cannula 2.0 28 09/12/18 05:50 68 141/83 09/12/18 05:49 141/83 09/12/18 04:00 97.4 68 20 141/83 (102) 96 09/12/18 00:21 70 20 97 Nasal Cannula 2.0 28 09/12/18 00:13 70 20 95 Nasal Cannula 2.0 09/12/18 00:00 97.6 71 17 140/77 (98) 96 Intake and Output 09/11/18 09/12/18 18:59 06:59 Intake Total 760 ml 595 ml Output Total 1001 ml Balance -241 ml 595 ml Intake Free Water 100 ml 100 ml Tube Feeding 660 ml 495 ml Output Urine Total 1000 ml Stool Total 1 ml # Bowel Movements 1 Height (Feet): 5 Height (Inches): 5.00 Weight (Pounds): 253 General Appearance: no apparent distress, alert Neurologic: disoriented, depressed affect Flores Tavares MD Sep 12, 2018 22:14
--- NOTE | 2018-09-13 14:39 | Discharge Summary ---
Discharge Summary Discharge Summary _ DATE OF ADMISSION: 09/05/2018 DATE OF DISCHARGE: 09/12/2018 DISCHARGED BY: Dr. Ramsey REASON FOR ADMISSION: 72 years old female with past medical history of sepsis,chronic diastolic congestive heart failure ,bacteremia, morbid obesity, paroxysmal atrial fibrillation , hypothyroidism ,metabolic encephalopathy, depression ,acute hypercapnic respiratory failure, seizure disorder, history of CVA with left- sided non-dominant side hemiparesis, GERD ,dysphasia ,status post PEG placement, status post pacemaker implantation secondary to sick sinus syndrome , [facility] from the [facility] with altered mental status and coughing. Laboratory orkup revealed leukocytosis WBC 15.1. Lactic acid 3.5. Troponin negative. EKG revealed atrial fibrillation with rapid ventricular response . Chest X-ray revealed patchy right basilar infiltrate , likely pneumonia. Urinalysis was grossly positive for UTI. Patient admitted with diagnoses of sepsis, likely secondary to pneumonia, atrial fibrillation with rapid ventricular response, lactic acidosis, functional quadriplegia ,urinary tract infection ,hypothyroidism ,hypertension ,sick sinus syndrome ,status post pacemaker, history of CVA ,seizure disorder , morbid obesity, dysphagia, altered mental status CONSULTANTS: foreign service teacher Dr. Woods pulmonary Dr. Lau ID specialist psychiatrist [facility]RSE: Patient admitted to monitored floor. Patient started on empiric antibiotics. [facility] were resumed . Cardiology ,pulmonology and ID specialist followed. Antibiotics provided as per infectious disease specialist recommendation. Influenza screen test was negative. Blood culture revealed 1 out of 4 Staph coagulase-negative likely contaminant. Urine culture revealed E. coli and E. coli ESBL. Sputum culture was negative. Per infectious disease specialist, patient will need to continue with meropenem for 7 additional days at the [facility] facility. Packager Hand followed. Echocardiogram revealed preserved ejection fraction of 65%. No evidence of left ventricular hypertrophy. No evidence of wall motion abnormality. Right ventricular systolic pressure of 42 consistent with mild pulmonary hypertension. Rate was controlled with digoxin and verapamil. Patient was on anticoagulation with Eliquis. Blood pressure was stable with the verapamil. Statin was continued. GI prophylaxis provided. Supplemental oxygen provided as needed to keep pulse oximetry above 92%. Pulmonary toilet was on standby as needed. No evidence of respiratory distress. Pulse oximetry stable on oxygen 2 L via nasal cannula. Strict aspiration/ reflux precaution maintained. Patient tolerated G-tube feeding. G-tube site care provided. Hemoglobin and hematocrit were closely monitored with goal to keep hemoglobin above 7. Hemoglobin remained stable ,at baseline, no evidence of bleeding. Levothyroxine was continued Seizure precaution maintained. Keppra continued. No evidence of seizure activity while in the hospital. Psychiatrist followed. Per psychiatrist patient had acute encephalopathy due to toxin related to infectious process along with underlying dementia. Psychiatric medication regimen was continued. Supportive therapy provided. Patient clinically stabilized and was ready for transfer back to [facility] facility for continuation FINAL DIAGNOSES: Sepsis secondary to pneumonia Pneumonia Atrial fibrillation with rapid ventricular response Lactic acidosis E. coli ESBL UTI Encephalopathy due to toxin Functional quadriplegia Iron deficiency anemia Hypothyroidism Hypertension Sick sinus syndrome, status post pacemaker implantation Basal ganglia cerebrovascular accident with hemiparesis Seizure disorder Morbid obesity Dysphagia ,status post PEG placement Dementia DISCHARGE MEDICATIONS: See Medication Reconciliation list. DISCHARGE INSTRUCTIONS: Patient was discharged to the [facility] facility. Follow up with medical doctor at the facility. I have been assigned to dictate discharge summary for this account. I was not involved in the patient's management. Yakelin Schaefer NP Sep 13, 2018 14:39
== END 2018-09-12 18:30 | DRG 871 ==
LOC: EDBD 00:03 → EMR 00:22 → 2E 01:26 → EDBEDREQ 02:13 → 2E 23:51 → 4E 09-08 16:12
PROC: B518ZZA Fluoroscopy of Superior Vena Cava, Guidance (ICD-10-PCS; principal; 2018-09-10)
PROC: 02HV33Z Insertion of Infusion Device into Superior Vena Cava, Percutaneous Approach (ICD-10-PCS; principal; 2018-09-10)
DX: A41.9 Sepsis, unspecified organism (principal); J18.9 Pneumonia, unspecified organism; R53.2 Functional quadriplegia; G93.41 Metabolic encephalopathy; N39.0 Urinary tract infection, site not specified; I50.32 Chronic diastolic (congestive) heart failure; N17.9 Acute kidney failure, unspecified; I69.951 Hemiplegia and hemiparesis following unspecified cerebrovascular disease affecting right dominant side; Z68.41 Body mass index [BMI] 40.0-44.9, adult; I48.0 Paroxysmal atrial fibrillation; Z79.01 Long term (current) use of anticoagulants; Z95.0 Presence of cardiac pacemaker; B96.20 Unspecified Escherichia coli [E. coli] as the cause of diseases classified elsewhere; I11.0 Hypertensive heart disease with heart failure; R13.10 Dysphagia, unspecified; Z93.1 Gastrostomy status; G40.909 Epilepsy, unspecified, not intractable, without status epilepticus; E03.9 Hypothyroidism, unspecified; D50.9 Iron deficiency anemia, unspecified; E66.01 Morbid (severe) obesity due to excess calories; F03.90 Unspecified dementia, unspecified severity, without behavioral disturbance, psychotic disturbance, mood disturbance, and anxiety; E86.0 Dehydration
CPT/HCPCS: 36415; 36569; 51701; 71045; 76937; 80048; 80053; 80162; 80202; 81003; 82550; 82553; 82962; 83605; 83690; 83735; 83880; 84100; 84484; 85025; 86710; 87040; 87070; 87081; 87086; 87181; 87205; 93005; 93306; 93971; 94640; 94664; 94760; 96361; 96365; 99291; J3490; S0077